=== PATIENT | female | born 1975 | race Caucasian/White ===

== ENCOUNTER 2016-05-15 12:26 | Inpatient (IN) | payer BC ==
[~2016-05-15] VITALS: Ht 162.6 cm; Wt 67.9 kg
[~2016-05-15 12:26] MED LIST: CALC500C70 PO; CITA20TA4 PO; GLUC10007 PO; MULT-506 PO; SIMV10TA2 PO; SNG10 PO
[2016-05-15] MEDS ORDERED: VENL150C56 PO (13:06)
[2016-05-15] MEDS ORDERED: SODIUM CHLORIDE 0.9% 1000ML 1,000 ML IV STA ×3 (13:20→16:27)
[2016-05-15] MEDS ORDERED: ONDANSETRON INJ 2 MG/ML 2 ML VIAL IV STA (13:20)
[2016-05-15] MEDS ORDERED: MoRPHine SULFATE 4 MG/ML 1 ML CARP\\VIAL IV PRN ×2 (13:30→17:30)
[2016-05-15 13:34] LABS: BASO % 0.2 %; BASO ABS # 0.04 K/uL (0-0.2); COMPLETE YES; EOS % 0.1 %; HEMATOCRIT 44.2 % (37-47); IG% 0.5 %; LYMPH % 8.8 %; LYMPH ABS # 1.72 K/uL (1.2-3.4); MEAN CELL VOLUME 89.8 fL (80-100); MEAN CORPUSCULAR HEMOGLOBIN 30.3 pg (25-34); MEAN CORPUSCULAR HGB CONC 33.7 g/dl (32-36); MEAN PLATELET VOLUME 9.1 fL (7.4-10.4); MONO % 4.3 %; NEUT % 86.1 %; PLATELET COUNT 343 K/uL (130-400); RED BLOOD COUNT 4.92 M/uL (4.2-5.4)
--- NOTE | 2016-05-15 13:36 | EMERGENCY ROOM VISIT NOTE ---
History Report prepared by Radha: Tonya Villalobos Under the Supervision of: Dr. Valente Arnold D.O. First contact with patient: 13:18 Chief Complaint: ABDOMINAL PAIN Stated Complaint: EXTREME STOMACH PAIN Nursing Triage Summary: pt c/o generalized abdominal pain starting 2 hours ago. pt c/o nausea and vomiting x1. pt states she has a lysis of adhesions in her abdomen from a back surgery. History of Present Illness The patient is a 41 year old female who presents to the Emergency Room with complaints of persistent umbilical abdominal pain that began prior to arrival. She currently rates her discomfort as a 10/10 in severity. The patient states that intermittently for quite some time she has experienced abdominal discomfort. She states that she has had adhesions in the past. She states that on May 03 she had a similar episode with the abdominal pain, nausea and vomiting. The patient denies any fever, chills, or diarrhea. She states that her last bowel movement was yesterday. The patient states that she has been urinating more than usual. She states that she is currently on her menstrual cycle noting that it is normal. The patient denies any other active medical problems. She notes a surgical history of a cholecystectomy, appendectomy, tonsillectomy, wisdom teeth extraction, and a back surgery. Source of History: patient Onset: prior to arrival Position: abdomen (umbilical) Symptom Intensity: 10/10 Timing: other (persistent) Associated Symptoms: + nausea, + vomiting, No chills, No diarrhea, No fevers Review of Systems See HPI for pertinent positives & negatives. A total of 10 systems reviewed and were otherwise negative. Past Medical & Surgical Medical Problems: (1) Depression (2) Dyslipidemia (3) GERD (gastroesophageal reflux disease) (4) LORENA (obstructive sleep apnea) (5) SBO (small bowel obstruction) Surgical Problems: (1) H/O esophagogastroduodenoscopy (2) H/O wisdom tooth extraction (3) History of appendectomy (4) History of surgical removal of ganglion cyst (5) History of tonsillectomy (6) Hx of cholecystectomy (7) S/P lumbar fusion Family History Cancer Diabetes mellitus Hypertension Kidney disease Kidney stones Social History Smoking Status: Never Smoker Drug Use: none Marital Status: Housing Status: lives with family Occupation Status: employed Current/Historical Medications Scheduled Calcium/Vitamin D (Os-Severo 500 Plus D), 1 TAB PO DAILY Glucosamine Sulfate (Glucosamine), Unknown Dose PO DAILY Loratadine (Claritin), 1 TAB PO DAILY Montelukast Sod (Montelukast Sodium), 10 MG PO HS Multivitamin (Multivitamin), 1 TAB PO DAILY Omeprazole (Prilosec), 1 CAP PO DAILY Simvastatin (Zocor), 20 MG PO QPM Trazodone Hcl (Trazodone), 50 MG PO HS Venlafaxine Hcl (Effexor Extended Rel), 150 MG PO DAILY Allergies Coded Allergies: BEE STING (Verified Allergy, Severe, ANAPHYLAXIS, 05/15/16) Amoxicillin (Verified Adverse Reaction, Mild, nausea/vomitting, 05/15/16) Erythromycin (Verified Adverse Reaction, Mild, nausea/vomitting, 05/15/16) Physical Exam Vital Signs Date Time Temp Pulse Resp B/P Pulse Ox O2 Delivery O2 Flow Rate FiO2 05/15/16 16:56 91 16 106/69 94 Room Air 05/15/16 16:02 90 18 104/73 94 Room Air 05/15/16 14:41 111 16 114/78 96 Room Air 05/15/16 12:42 36.8 118 18 94/70 99 Room Air Physical Exam GENERAL: Patient is awake, alert, very anxious and uncomfortable appearing. Appears to be in significant pain. EYES: The conjunctivae are clear. The pupils are round and reactive. EARS, NOSE, MOUTH AND THROAT: The nose is without any evidence of any deformity. Mucous membranes are moist tongue is midline NECK: The neck is nontender and supple. RESPIRATORY: Normal respiratory effort is noted there is no evidence of wheezing rhonchi or rales CARDIOVASCULAR: Regular rate and rhythm noted there no murmurs rubs or gallops normal S1 normal S2 GASTROINTESTINAL: The abdomen is moderately distended and diffusely tender. Bowel sounds are absent. MUSCULOSKELETAL/EXTREMITIES: There is no evidence of gross deformity full range of motion is noted in the hips and shoulders SKIN: There is no obvious evidence of any rash. There are no petechiae, pallor or cyanosis noted. NEUROLOGIC: Patient is awake alert and oriented x3. Medical Decision & Procedures ER Provider Diagnostic Interpretation: Radiology results as stated below per my review and radiologist interpretation: PA CHEST WITH ABDOMINAL SERIES CLINICAL HISTORY: Generalized abdominal pain. FINDINGS: A PA chest radiograph is compared to study dated 08/08/2015. The cardiomediastinal silhouette is unremarkable. The lungs and pleural spaces are clear. No pneumothorax is seen. The bony thorax is grossly intact. Supine and erect abdominal radiographs are compared to study dated 08/08/2015 and correlated with abdominal CT dated 08/14/2015. There is a nonobstructed abdominal bowel gas pattern. Moderate colonic fecal retention is observed. Scattered air-fluid levels are noted on the upright view. No intraperitoneal free air is seen. Cholecystectomy clips are noted. There are no abnormal abdominal calcifications. Phleboliths are again seen in the pelvis. The lumbosacral spine and bony pelvis appear intact. Fusion hardware is present at the lumbosacral junction. IMPRESSION: 1. No active disease in the chest. 2. Nonobstructed abdominal bowel gas pattern noting moderate colonic fecal retention. 3. Scattered air-fluid levels are noted throughout the small bowel, which could be seen in the setting of a nonspecific enteritis. Clinical correlation will be required. Electronically signed by: Landry Wilkins M.D. 05/15/2016 2:28 PM Dictated Date/Time: 05/15/2016 2:25 PM ABDOMEN AND PELVIS CT WITH IV CONTRAST CT DOSE: 432.95 mGy.cm HISTORY: vomiting, hx of adhesions, high WBC TECHNIQUE: Multiaxial CT images of the abdomen and pelvis were performed following the use of intravenous contrast. COMPARISON STUDY: Abdomen and pelvis CT 08/14/2015. FINDINGS: The lung bases are clear. No pneumoperitoneum. No pneumatosis. Anterior lumbar fusion at L5-S1. Cholecystectomy. Bladder is not well-distended. The uterus and bilateral ovaries are unremarkable. Small amount of pelvic fluid. The liver, spleen, pancreas, and adrenal glands are unremarkable. Normal right kidney. A 1.6 cm cyst within the left kidney. This remains unchanged. Multiple dilated fluid-filled loops of small bowel throughout the abdomen. There is suggestion of a focal stricture within the distal small bowel in the right lower quadrant on image 355. Distal to this potential stricture, the distal ileal loops appear to be mildly thickened within the right lower quadrant best seen on images 339 through 355. The appendix is not identified IMPRESSION: 1. Partial small bowel obstruction with the transition point located within the right lower quadrant at the level of the distal ileum. There is a potential stricture at this location and mild thickening of the distal ileal loops. Therefore, this could be due to adhesions or inflammatory bowel disease. 2. Small amount of pelvic fluid. 3. Cholecystectomy. Electronically signed by: Cy Hernandez M.D. 05/15/2016 4:01 PM Dictated Date/Time: 05/15/2016 3:47 PM Laboratory Results Test 05/15/16 12:05 05/15/16 13:15 05/15/16 16:42 Immature Granulocyte % (Auto) 0.5 % White Blood Count 19.50 K/uL (4.8-10.8) Red Blood Count 4.92 M/uL (4.2-5.4) Hemoglobin 14.9 g/dL (12.0-16.0) Hematocrit 44.2 % (37-47) Mean Corpuscular Volume 89.8 fL (80-100) Mean Corpuscular Hemoglobin 30.3 pg (25-34) Mean Corpuscular Hemoglobin Concent 33.7 g/dl (32-36) Platelet Count 343 K/uL (130-400) Mean Platelet Volume 9.1 fL (7.4-10.4) Neutrophils (%) (Auto) 86.1 % Lymphocytes (%) (Auto) 8.8 % Monocytes (%) (Auto) 4.3 % Eosinophils (%) (Auto) 0.1 % Basophils (%) (Auto) 0.2 % Neutrophils # (Auto) 16.80 K/uL (1.4-6.5) Lymphocytes # (Auto) 1.72 K/uL (1.2-3.4) Monocytes # (Auto) 0.83 K/uL (0.11-0.59) Eosinophils # (Auto) 0.02 K/uL (0-0.5) Basophils # (Auto) 0.04 K/uL (0-0.2) Immature Granulocyte # (Auto) 0.09 K/uL (0.00-0.02) Total Bilirubin 0.5 mg/dl (0.2-1) Direct Bilirubin 0.2 mg/dl (0-0.2) Aspartate Amino Transf (AST/SGOT) 18 U/L (15-37) Alanine Aminotransferase (ALT/SGPT) 22 U/L (12-78) Alkaline Phosphatase 77 U/L (45-117) Total Protein 8.0 gm/dl (6.4-8.2) Lipase 210 U/L (73-393) Urine Color DK YELLOW Urine Appearance CLEAR (CLEAR) Urine pH 5.0 (4.5-7.5) Urine Specific [place] 1.028 (1.000-1.030) Urine Protein TRACE (NEG) Urine Glucose (UA) NEG (NEG) Urine Ketones TRACE (NEG) Urine Occult Blood 3+ (NEG) Urine Nitrite NEG (NEG) Urine Bilirubin NEG (NEG) Urine Urobilinogen NEG (NEG) Urine Leukocyte Esterase TRACE (NEG) Urine WBC (Auto) 1-5 /hpf (0-5) Urine RBC (Auto) >30 /hpf (0-4) Urine Hyaline Casts (Auto) 1-5 /lpf (0-5) Urine Epithelial Cells (Auto) >30 /lpf (0-5) Urine Bacteria (Auto) NEG (NEG) Bedside Lactic Acid Venous 0.70 mmol/L (0.90-1.70) Laboratory results per my review. Medications Administered Medications (Trade) Dose Ordered Sig/Toño Route Start Time Stop Time Status Last Admin Dose Admin Sodium Chloride 1,000 ml @ 999 mls/hr Q1H1M STAT IV 05/15/16 13:20 05/15/16 14:20 DC 05/15/16 13:38 999 MLS/HR Sodium Chloride (Nss 1000ml) 1,000 ml @ 250 mls/hr Q4H STAT IV 05/15/16 13:20 05/15/16 17:19 DC 05/15/16 14:01 250 MLS/HR Morphine Sulfate (MoRPHine SULFATE INJ) 4 mg Q15M PRN IV 05/15/16 13:30 05/15/16 18:23 DC 05/15/16 13:38 4 MG Ondansetron HCl 4 mg 4 mg NOW STAT IV 05/15/16 13:20 05/15/16 13:22 DC 05/15/16 13:38 4 MG Sodium Chloride (Nss 1000ml) 1,000 ml @ 999 mls/hr Q1H1M STAT IV 05/15/16 16:27 05/15/16 17:27 DC 05/15/16 17:21 999 MLS/HR ED Course 1318: The patient was evaluated in room A11B. A complete history and physical examination were performed. 1320: Ordered Zofran Inj 4 mg IV, Sodium Chloride 1000 ml @ 250 mls/hr IV, Sodium Chloride 1000 ml @ 999 mls/hr IV. 1330: Ordered Morphine sulfate 4 mg IV. 1443: I reevaluated the patient and she is resting comfortably. 1616: I reevaluated the patient and she is resting comfortably. I discussed the exam findings with her and I discussed the treatment plan. She verbalized complete understanding and agreement. She will be evaluated for further treatment. 1627: Ordered Sodium Chloride 1000 ml @ 999 mls/hr IV. 1623: I discussed the patients case with Lianna Multani. She is going to evaluate the patient for further treatment. 1634: I discussed the patient's case with Dr. Hernandez, General Surgery. He will evaluate the patient. Medical Decision Differential diagnosis: Etiologies such as appendicitis, diverticulitis, PUD, biliary pathology, UTI, pancreatitis, obstruction, mesenteric ischemia, aortic pathology, infections, inflammatory bowel disease, renal colic, as well as others were entertained. Nursing notes reviewed. The patient is a 41-year-old female who presented to the emergency department for an evaluation of diffuse abdominal pain. The patient had nausea and vomiting. She also had abdominal distention. Her history and physical exam appear to be consistent with bowel obstruction. She has a history of adhesions in the past and has had a bowel obstruction. X-rays did not show a definite obstruction. Her white blood cell count was elevated. CT the abdomen and pelvis did reveal signs of partial small bowel obstruction. Given the patient's laboratory studies and physical exam findings I discussed her case with the on- call general surgeon as well as the on-call [facility] hospitalist group. The patient was treated with IV fluids IV pain medication and IV antiemetics. On subsequent reevaluation she was feeling much better. Consults Time Called: 1616 Consulting Physician: Lianna Multani Returned Call: 1623 I discussed the patients case with Lianna Multani. She is going to evaluate the patient for further treatment. Additional Consults: Time Called: 1627 Consulted Physician: Dr. Hernandez, General Surgery Returned Call: 1634 Additional Comments: I discussed the patient's case with Dr. Hernandez, General Surgery. He will evaluate the patient. Impression Primary Impression: Partial small bowel obstruction Additional Impressions: Vomiting Right lower quadrant abdominal pain Scribe Attestation The scribe's documentation has been prepared under my direction and personally reviewed by me in its entirety. I confirm that the note above accurately reflects all work, treatment, procedures, and medical decision making performed by me. Departure Information Dispostion Being Evaluated By Hospitalist Referrals No Doctor, Assigned (PCP) Problem Qualifiers
[2016-05-15 13:44] LABS: MANUAL MICROSCOPIC REQUIRED? NO; REVIEW REQ? NO; URINE APPEARANCE CLEAR (CLEAR); URINE BILIRUBIN NEG (NEG); URINE COLOR DK YELLOW; URINE EPITHELIAL CELL AUTO >30 /lpf (0-5); URINE NITRITE NEG (NEG); URINE SPECIFIC GRAVITY 1.028 (1.000-1.030); UROBILINOGEN NEG (NEG)
[2016-05-15 14:00] LABS: BUN/CREATININE RATIO 15.2 (10-20); CALCIUM 9.8 mg/dl (8.5-10.1); CREATININE 0.97 mg/dl (0.60-1.20); POTASSIUM 3.8 mmol/L (3.5-5.1)
--- NOTE | 2016-05-15 14:28 | DIAGNOSTIC IMAGING REPORT ---
PA CHEST WITH ABDOMINAL SERIES CLINICAL HISTORY: Generalized abdominal pain. FINDINGS: A PA chest radiograph is compared to study dated 08/08/2015. The cardiomediastinal silhouette is unremarkable. The lungs and pleural spaces are clear. No pneumothorax is seen. The bony thorax is grossly intact. Supine and erect abdominal radiographs are compared to study dated 08/08/2015 and correlated with abdominal CT dated 08/14/2015. There is a nonobstructed abdominal bowel gas pattern. Moderate colonic fecal retention is observed. Scattered air-fluid levels are noted on the upright view. No intraperitoneal free air is seen. Cholecystectomy clips are noted. There are no abnormal abdominal calcifications. Phleboliths are again seen in the pelvis. The lumbosacral spine and bony pelvis appear intact. Fusion hardware is present at the lumbosacral junction. IMPRESSION: 1. No active disease in the chest. 2. Nonobstructed abdominal bowel gas pattern noting moderate colonic fecal retention. 3. Scattered air-fluid levels are noted throughout the small bowel, which could be seen in the setting of a nonspecific enteritis. Clinical correlation will be required. Electronically signed by: Landry Wilkins M.D. 05/15/2016 2:28 PM Dictated Date/Time: 05/15/2016 2:25 PM
[2016-05-15] MEDS ORDERED: OPTIRAY 320 IV PRN ×2 (14:45)
--- NOTE | 2016-05-15 16:02 | DIAGNOSTIC IMAGING REPORT ---
ABDOMEN AND PELVIS CT WITH IV CONTRAST CT DOSE: 432.95 mGy.cm HISTORY: vomiting, hx of adhesions, high WBC TECHNIQUE: Multiaxial CT images of the abdomen and pelvis were performed following the use of intravenous contrast. COMPARISON STUDY: Abdomen and pelvis CT 08/14/2015. FINDINGS: The lung bases are clear. No pneumoperitoneum. No pneumatosis. Anterior lumbar fusion at L5-S1. Cholecystectomy. Bladder is not well-distended. The uterus and bilateral ovaries are unremarkable. Small amount of pelvic fluid. The liver, spleen, pancreas, and adrenal glands are unremarkable. Normal right kidney. A 1.6 cm cyst within the left kidney. This remains unchanged. Multiple dilated fluid-filled loops of small bowel throughout the abdomen. There is suggestion of a focal stricture within the distal small bowel in the right lower quadrant on image 355. Distal to this potential stricture, the distal ileal loops appear to be mildly thickened within the right lower quadrant best seen on images 339 through 355. The appendix is not identified IMPRESSION: 1. Partial small bowel obstruction with the transition point located within the right lower quadrant at the level of the distal ileum. There is a potential stricture at this location and mild thickening of the distal ileal loops. Therefore, this could be due to adhesions or inflammatory bowel disease. 2. Small amount of pelvic fluid. 3. Cholecystectomy. Electronically signed by: Cy Hernandez M.D. 05/15/2016 4:01 PM Dictated Date/Time: 05/15/2016 3:47 PM
[2016-05-15] MEDS ORDERED: ACETAMINOPHEN 325 MG TAB PO PRN (17:00)
[2016-05-15] MEDS ORDERED: SIMV20TA2 PO (17:00)
[2016-05-15] MEDS ORDERED: LORA10TA5 PO (17:00)
[2016-05-15] MEDS ORDERED: OMEP20CA59 PO (17:00)
[2016-05-15] MEDS ORDERED: ONDANSETRON INJ 2 MG/ML 2 ML VIAL IV PRN (17:00)
[2016-05-15] MEDS ORDERED: TRAZ50TA35 PO (17:00)
--- NOTE | 2016-05-15 17:34 | History and Physical ---
History & Physical Date & Time of Service: May 15, 2016 at 17:12 Chief Complaint: Abdominal Pain Primary Care Physician: Nelly Davis PA-C History of Present Illness 41 year old female who presents to the ER with abdominal pain, nausea, and vomiting. Patient has history of her appendix being adhered to her pelvis causing SBO which she underwent appendectomy and lysis of adhesions in 2014. 11 days post op patient developed a SBO that was treated conservatively. Patient reports that since her surgery she has episodes of lower abdominal pain and irregular bowel movements. Patient reports 10 days ago she had RLQ abdominal pain with vomiting. She reports is lasted about 24 hours and resolved on its own. She reports she had been feeling well until this morning when she had sudden onset of mid lower/RLQ abdominal pain with multiple episodes of vomiting. She denies hematemesis or coffee ground emesis. She reports her last normal bowel movement was yesterday. She denies abdominal distention. No fever or chills. She denies chest pain and shortness of breath. She reports mild lightheadedness and dizziness when the pain was severe but denies any syncopal events. She reports urinary frequency over the past few weeks. In the ER, patient underwent CT abd/pelvis that is showing partial SBO. WBC 19K. Initial vitals showed borderline BP and tachycardia which improved with IVF. Patient was also given IV Zofran and Morphine. Past Medical/Surgical History Medical Problems: (1) Depression Status: Chronic (2) Dyslipidemia Status: Chronic (3) GERD (gastroesophageal reflux disease) Status: Chronic (4) LORENA (obstructive sleep apnea) Status: Chronic (5) SBO (small bowel obstruction) Permanent Comment: 11 days post op from appendectomy Status: Chronic Surgical Problems: (1) H/O esophagogastroduodenoscopy Status: Resolved (2) H/O wisdom tooth extraction Status: Chronic (3) History of appendectomy Permanent Comment: appendix was adhered to pelvis causing SBO - patient has appendectomy and lysis of adhesions Status: Chronic (4) History of surgical removal of ganglion cyst Status: Chronic (5) History of tonsillectomy Status: Chronic (6) Hx of cholecystectomy Status: Chronic (7) S/P lumbar fusion Status: Chronic Family History FH: breast cancer SISTER Social History Smoking Status: Former Smoker Alcohol Use: none Immunizations History of Influenza Vaccine: Yes Influenza Vaccine Date: Apr 11, 2016 History of Tetanus Vaccine?: Yes Tetanus Immunization Date: Dec 11, 2012 History of Pneumococcal: Yes Pneumococcal Date: Dec 22, 2008 History of Hepatitis B Vaccine: Yes Hepatitis Immunization Date: Jan 03, 2004 Allergies Coded Allergies: BEE STING (Verified Allergy, Severe, ANAPHYLAXIS, 05/15/16) Amoxicillin (Verified Adverse Reaction, Mild, nausea/vomitting, 05/15/16) Erythromycin (Verified Adverse Reaction, Mild, nausea/vomitting, 05/15/16) Home Medications Scheduled Calcium/Vitamin D (Os-Severo 500 Plus D), 1 TAB PO DAILY Glucosamine Sulfate (Glucosamine), Unknown Dose PO DAILY Loratadine (Claritin), 1 TAB PO DAILY Montelukast Sod (Montelukast Sodium), 10 MG PO HS Multivitamin (Multivitamin), 1 TAB PO DAILY Omeprazole (Prilosec), 1 CAP PO DAILY Simvastatin (Zocor), 20 MG PO QPM Trazodone Hcl (Trazodone), 50 MG PO HS Venlafaxine Hcl (Effexor Extended Rel), 150 MG PO DAILY Review of Systems 10 point review of systems was completed with the pertinent positives and negatives noted per the HPI Physical Exam Vital Signs Date Time Temp Pulse Resp B/P Pulse Ox O2 Delivery O2 Flow Rate FiO2 05/15/16 16:56 91 16 106/69 94 Room Air 05/15/16 16:02 90 18 104/73 94 Room Air 05/15/16 14:41 111 16 114/78 96 Room Air 05/15/16 12:42 36.8 118 18 94/70 99 Room Air General Appearance: no apparent distress Head: normocephalic Eyes: normal inspection ENT: hearing grossly normal Neck: supple, no JVD Respiratory/Chest: lungs clear, normal breath sounds, no respiratory distress Cardiovascular: regular rate, rhythm, no edema Abdomen/GI: soft, + tenderness (RLQ, mid lower abdomen), + abnormal bowel sounds (hypoactive) Extremities/Musculoskelatal: normal inspection, no calf tenderness Neurologic/Psych: no motor/sensory deficits, alert, normal mood/affect, oriented x 3 Skin: normal color, warm/dry Diagnostics Laboratory Results Results Past 24 Hours Test 05/15/16 12:05 05/15/16 13:15 05/15/16 16:42 Range/Units White Blood Count 19.50 4.8-10.8 K/uL Red Blood Count 4.92 4.2-5.4 M/uL Hemoglobin 14.9 12.0-16.0 g/dL Hematocrit 44.2 37-47 % Mean Corpuscular Volume 89.8 80-100 fL Mean Corpuscular Hemoglobin 30.3 25-34 pg Mean Corpuscular Hemoglobin Concent 33.7 32-36 g/dl Platelet Count 343 130-400 K/uL Mean Platelet Volume 9.1 7.4-10.4 fL Neutrophils (%) (Auto) 86.1 % Lymphocytes (%) (Auto) 8.8 % Monocytes (%) (Auto) 4.3 % Eosinophils (%) (Auto) 0.1 % Basophils (%) (Auto) 0.2 % Neutrophils # (Auto) 16.80 1.4-6.5 K/uL Lymphocytes # (Auto) 1.72 1.2-3.4 K/uL Monocytes # (Auto) 0.83 0.11-0.59 K/uL Eosinophils # (Auto) 0.02 0-0.5 K/uL Basophils # (Auto) 0.04 0-0.2 K/uL RDW Standard Deviation 41.7 36.4-46.3 fL RDW Coefficient of Variation 12.7 11.5-14.5 % Immature Granulocyte % (Auto) 0.5 % Immature Granulocyte # (Auto) 0.09 0.00-0.02 K/uL Sodium Level 139 136-145 mmol/L Potassium Level 3.8 3.5-5.1 mmol/L Chloride Level 103 98-107 mmol/L Carbon Dioxide Level 26 21-32 mmol/L Anion Gap 10.0 3-11 mmol/L Blood Urea Nitrogen 15 7-18 mg/dl Creatinine 0.97 0.60-1.20 mg/dl Est Creatinine Clear Calc Drug Dose 70.8 ml/min Estimated GFR () 82.9 Estimated GFR (Non- 71.5 BUN/Creatinine Ratio 15.2 10-20 Random Glucose 122 70-99 mg/dl Calcium Level 9.8 8.5-10.1 mg/dl Total Bilirubin 0.5 0.2-1 mg/dl Direct Bilirubin 0.2 0-0.2 mg/dl Aspartate Amino Transf (AST/SGOT) 18 15-37 U/L Alanine Aminotransferase (ALT/SGPT) 22 12-78 U/L Alkaline Phosphatase 77 45-117 U/L Total Protein 8.0 6.4-8.2 gm/dl Albumin 4.3 3.4-5.0 gm/dl Lipase 210 73-393 U/L Urine Color DK YELLOW Urine Appearance CLEAR CLEAR Urine pH 5.0 4.5-7.5 Urine Specific [place] 1.028 1.000-1.030 Urine Protein TRACE NEG Urine Glucose (UA) NEG NEG Urine Ketones TRACE NEG Urine Occult Blood 3+ NEG Urine Nitrite NEG NEG Urine Bilirubin NEG NEG Urine Urobilinogen NEG NEG Urine Leukocyte Esterase TRACE NEG Urine WBC (Auto) 1-5 0-5 /hpf Urine RBC (Auto) >30 0-4 /hpf Urine Hyaline Casts (Auto) 1-5 0-5 /lpf Urine Epithelial Cells (Auto) >30 0-5 /lpf Urine Bacteria (Auto) NEG NEG Bedside Lactic Acid Venous 0.70 0.90-1.70 mmol/L Diagnostic Radiology CHEST/ABD XR IMPRESSION: 1. No active disease in the chest. 2. Nonobstructed abdominal bowel gas pattern noting moderate colonic fecal retention. 3. Scattered air-fluid levels are noted throughout the small bowel, which could be seen in the setting of a nonspecific enteritis. Clinical correlation will be required. CT ABD/PELVIS IMPRESSION: 1. Partial small bowel obstruction with the transition point located within the right lower quadrant at the level of the distal ileum. There is a potential stricture at this location and mild thickening of the distal ileal loops. Therefore, this could be due to adhesions or inflammatory bowel disease. 2. Small amount of pelvic fluid. 3. Cholecystectomy. Impression Assessment and Plan PARTIAL SBO - admit to med/surg - likely due to adhesions from prior abdominal surgeries - abdomen currently soft, patient comfortable - no role for NG at this time - NPO, IVF, pain and nausea control - check lactic acid - follow up abdominal XR in AM - general surgery consult - notified by ED LEUKOCYTOSIS - possibly stress response from vomiting/pain - no infectious source noted on CT abd/pelvis - had borderline BP and tachycardia on arrival - likely due to hypovolemia from vomiting - improved with IVF - abnormal U/A however appears to be contaminated (microscopic hematuria also noted - may need outpatient follow up); patient reports urinary frequency so will start Rocephin DYSLIPIDEMIA - hold statin for now DEPRESSION - hold Effexor for now DVT PROPHYLAXIS - SCDs DISPO - In my clinical judgment this beneficiary meets acute admission criteria, established by [facility], that includes being hospitalized through two midnights. Agree with above h and p. 41f with hx of appendectomy in 2015 presents with abdominal pain, nausea and found to have partial sbo. Moved bowels yesterday. Not passing gas today.No fevers. no sob. Afebrile. Currently symptoms better. p/e Ge not in distress Cvs s1 and s2 heard no murmurs Rs cta b/l no wheezing Abd soft bs very sluggish non tender no distension [employer] non focal Ext no erythema PSBO npo, iv fluids, pain control f/u kub surgery consult. UTI? started on Rocephin f/u cx VTE Prophylaxis VTE Risk Assessment Done? Y/N: Yes Risk Level: Low
[2016-05-15 18:00] VITALS: BP 95/63; PULSE 81; TEMP 37.1; O2SAT 96
[2016-05-15] MEDS: SODIUM CHLORIDE 0.9% 1000ML 1,000 ML IV SCH (18:29)
[2016-05-15 18:30] VITALS: BP 106/69; PULSE 91; TEMP 36.8; O2SAT 95
[2016-05-15 18:34] VITALS: BP 107/67; PULSE 91; TEMP 36.8; Ht 162.6 cm; Wt 67.9 kg
[2016-05-15] MEDS: CEFTRIAXONE SOD INJ 1 GM in DEXTROSE 5% ADD-VANTAGE 50ML 50 ML IV SCH (19:43)
[2016-05-15] MEDS: PANTOprazole INJ 40 MG in SYRINGE 0 ML IV SCH (21:03)
[2016-05-16 00:10] VITALS: BP 104/68; PULSE 87; TEMP 36.9; O2SAT 97
[2016-05-16] MEDS: SODIUM CHLORIDE 0.9% 1000ML 1,000 ML IV SCH ×3 (01:26→16:56)
--- NOTE | 2016-05-16 06:12 | SURGICAL CONSULTATION ---
DATE OF CONSULTATION: 05/15/2016 HISTORY OF PRESENT ILLNESS: I have been asked by Silvia Patiño PA-C to see this 41-year-old female who presented to the Emergency Room with a complaint of nausea, vomiting and abdominal pain, mostly in the lower abdomen. The patient had her appendix removed in 2014. Ever since then, she has had intermittent episodes of abdominal discomfort that she describes as a crampy sensation. It will be dictated as a dull ache, but then will escalate. When she passes her bowels or has an episode of vomiting, the discomfort resolves after few hours. The frequency varies. She had an episode of this about 2 weeks ago. It resolved spontaneously, but then she began to develop discomfort today that was similar to what she had in the past except this one did not resolve. She has not had fever or chills. She has not had any hematemesis. Her bowel habits are very irregular. She has loose stool about 1 in 5 of her bowel movements. She does not go every day. She has no rohan diarrhea. There is no melena or hematochezia. She denies dysuria and hematuria. In review of her CT scan and pathology from the appendectomy, there was an inflammatory process in the right lower quadrant that by CT appeared to possibly be perforated appendicitis; however, the pathology revealed an obliterated appendix with serositis. CT scan today showed multiple dilated fluid filled loops of small bowel throughout the abdomen with suggestion of focal stricture in the distal small bowel in the right lower quadrant and the distal ileal loops appear to be mildly thickened within the right lower quadrant. PAST MEDICAL HISTORY: For hypercholesterolemia, depression, gastroesophageal reflux disease, sleep apnea. PAST SURGICAL HISTORY: For breast cancer removal, T\T\A, appendectomy, cholecystectomy, removal of 2 ganglion cysts from her wrist and a lumbar spinal fusion via an anterior approach. MEDICATIONS AT HOME: Include Claritin, Prilosec, Zocor, trazodone, Effexor, glucosamine, Os-Severo. ALLERGIES: AMOXICILLIN AND CLARITHROMYCIN, BUT THOSE WERE MORE OF AN UPSET STOMACH THAN AN ALLERGIC REACTION. SOCIAL HISTORY: She does not smoke or chew tobacco and does not drink alcohol. PHYSICAL EXAMINATION: GENERAL: Reveals a well-developed, well-nourished female who is resting comfortably and answering questions appropriately, appears in no acute distress. VITAL SIGNS: Blood pressure 107/67, heart rate 91, respirations 16, temperature is 36.8, and pulse oximetry is 95% on room air. HEENT: Reveals the sclerae to be anicteric. Mucous membranes are moist. NECK: Supple, with no JVD. No cervical or supraclavicular adenopathy. BACK: Has no spinal or CVA tenderness. LUNGS: Clear. HEART: Regular. ABDOMEN: Has normoactive bowel sounds, is soft, nondistended with minimal tenderness below the umbilicus. EXTREMITIES: Revealed no edema. LABORATORY DATA: WBC is 19.5, H\T\H is 14.9 and 44.2, platelet count 343,000. Sodium 139, potassium 3.8, chloride 103, CO2 26, BUN 15, creatinine 0.97. Lactic acid 0.77, glucose 122, total bilirubin 0.5, AST 18, ALT 22, alkaline phosphatase 77, lipase 210. IMAGING DATA: Radiology as per HPI. ASSESSMENT AND PLAN: This patient has lower abdominal pain that has been intermittent with irregular bowel habit history as well. She had a right lower quadrant inflammatory process in 1994. There was no evidence pathologically of acute appendicitis. She has thickening of the small bowel with a stricture. I would want to consider the possibility of inflammatory bowel disease. I really think that a colonoscopy would be appropriate with hopefully cannulation of the terminal ileum. I do not feel that there is any need for immediate surgical intervention. Thank you for allowing me to see this patient and participate in her care. VALERIA
[2016-05-16 06:50] LABS: MEAN CELL VOLUME 90.2 fL (80-100); MEAN CORPUSCULAR HEMOGLOBIN 29.4 pg (25-34); MEAN CORPUSCULAR HGB CONC 32.6 g/dl (32-36); MEAN PLATELET VOLUME 9.1 fL (7.4-10.4); PLATELET COUNT 237 K/uL (130-400); RED BLOOD COUNT 3.77 M/uL (4.2-5.4); WHITE BLOOD COUNT 6.57 K/uL (4.8-10.8)
[2016-05-16 07:01] LABS: BUN/CREATININE RATIO 17.4 (10-20); CALCIUM 7.7 mg/dl (8.5-10.1); CREATININE 0.67 mg/dl (0.60-1.20); POTASSIUM 3.8 mmol/L (3.5-5.1)
[2016-05-16 07:35] VITALS: BP 103/70; PULSE 99; TEMP 36.9; O2SAT 98
--- NOTE | 2016-05-16 08:29 | Surgery Progress Note ---
Surgery Progress Note Date of Service May 16, 2016. Subjective No bowel movement, No flatus, No nausea, No vomiting Feels much better Denies pain Objective Vital Signs: Date Time Temp Pulse Resp B/P Pulse Ox O2 Delivery O2 Flow Rate FiO2 05/16/16 07:35 36.9 99 15 103/70 98 Room Air 05/16/16 07:20 Room Air 05/16/16 00:40 Room Air 05/16/16 00:10 36.9 87 14 104/68 97 Room Air 05/15/16 18:34 36.8 91 16 107/67 Room Air 05/15/16 18:30 36.8 91 16 106/69 95 Room Air 05/15/16 18:30 Room Air 05/15/16 18:00 37.1 81 16 95/63 96 Room Air 05/15/16 17:52 86 16 107/67 95 Room Air 05/15/16 16:56 91 16 106/69 94 Room Air 05/15/16 16:02 90 18 104/73 94 Room Air 05/15/16 14:41 111 16 114/78 96 Room Air 05/15/16 12:42 36.8 118 18 94/70 99 Room Air Abdomen: non distended, soft, + tenderness (Much improved today) Laboratory Results: Results Past 24 Hours Test 05/15/16 12:05 05/15/16 13:15 05/15/16 16:42 05/16/16 05:33 Range/Units White Blood Count 19.50 6.57 4.8-10.8 K/uL Red Blood Count 4.92 3.77 4.2-5.4 M/uL Hemoglobin 14.9 11.1 12.0-16.0 g/dL Hematocrit 44.2 34.0 37-47 % Mean Corpuscular Volume 89.8 90.2 80-100 fL Mean Corpuscular Hemoglobin 30.3 29.4 25-34 pg Mean Corpuscular Hemoglobin Concent 33.7 32.6 32-36 g/dl Platelet Count 343 237 130-400 K/uL Mean Platelet Volume 9.1 9.1 7.4-10.4 fL Neutrophils (%) (Auto) 86.1 % Lymphocytes (%) (Auto) 8.8 % Monocytes (%) (Auto) 4.3 % Eosinophils (%) (Auto) 0.1 % Basophils (%) (Auto) 0.2 % Neutrophils # (Auto) 16.80 1.4-6.5 K/uL Lymphocytes # (Auto) 1.72 1.2-3.4 K/uL Monocytes # (Auto) 0.83 0.11-0.59 K/uL Eosinophils # (Auto) 0.02 0-0.5 K/uL Basophils # (Auto) 0.04 0-0.2 K/uL RDW Standard Deviation 41.7 41.9 36.4-46.3 fL RDW Coefficient of Variation 12.7 12.8 11.5-14.5 % Immature Granulocyte % (Auto) 0.5 % Immature Granulocyte # (Auto) 0.09 0.00-0.02 K/uL Sodium Level 139 144 136-145 mmol/L Potassium Level 3.8 3.8 3.5-5.1 mmol/L Chloride Level 103 111 98-107 mmol/L Carbon Dioxide Level 26 25 21-32 mmol/L Anion Gap 10.0 8.0 3-11 mmol/L Blood Urea Nitrogen 15 12 7-18 mg/dl Creatinine 0.97 0.67 0.60-1.20 mg/dl Est Creatinine Clear Calc Drug Dose 70.8 102.6 ml/min Estimated GFR () 82.9 124.8 Estimated GFR (Non- 71.5 107.7 BUN/Creatinine Ratio 15.2 17.4 10-20 Random Glucose 122 85 70-99 mg/dl Calcium Level 9.8 7.7 8.5-10.1 mg/dl Total Bilirubin 0.5 0.2-1 mg/dl Direct Bilirubin 0.2 0-0.2 mg/dl Aspartate Amino Transf (AST/SGOT) 18 15-37 U/L Alanine Aminotransferase (ALT/SGPT) 22 12-78 U/L Alkaline Phosphatase 77 45-117 U/L Total Protein 8.0 6.4-8.2 gm/dl Albumin 4.3 3.4-5.0 gm/dl Lipase 210 73-393 U/L Urine Color DK YELLOW Urine Appearance CLEAR CLEAR Urine pH 5.0 4.5-7.5 Urine Specific [place] 1.028 1.000-1.030 Urine Protein TRACE NEG Urine Glucose (UA) NEG NEG Urine Ketones TRACE NEG Urine Occult Blood 3+ NEG Urine Nitrite NEG NEG Urine Bilirubin NEG NEG Urine Urobilinogen NEG NEG Urine Leukocyte Esterase TRACE NEG Urine WBC (Auto) 1-5 0-5 /hpf Urine RBC (Auto) >30 0-4 /hpf Urine Hyaline Casts (Auto) 1-5 0-5 /lpf Urine Epithelial Cells (Auto) >30 0-5 /lpf Urine Bacteria (Auto) NEG NEG Bedside Lactic Acid Venous 0.70 0.90-1.70 mmol/L Microbiology Results 05/15/16 Urine Culture, Received Pending Assessment & Plan Improved symptomatically WBC normal Consider GI evaluation for terminal ileitis
[2016-05-16] MEDS: PANTOprazole INJ 40 MG in SYRINGE 0 ML IV SCH (11:06)
--- NOTE | 2016-05-16 14:50 | DIAGNOSTIC IMAGING REPORT ---
ABDOMEN 2 VIEWS CLINICAL HISTORY: Follow up partial small bowel obstruction. COMPARISON STUDY: Abdominal series and CT of the abdomen and pelvis May 15, 2016. FINDINGS: There are cholecystectomy clips. Post surgical findings within the spine are noted. There is no free air. Small bowel dilatation has resolved. IMPRESSION: 1. Resolution of small bowel dilatation. The findings suggest a resolving small bowel obstruction. 2. No free air. Electronically signed by: Dg Kimbrough M.D. 05/16/2016 2:49 PM Dictated Date/Time: 05/16/2016 2:47 PM
[2016-05-16 15:37] VITALS: BP 104/65; PULSE 77; TEMP 36.8; O2SAT 97
[2016-05-16] MEDS: CEFTRIAXONE SOD INJ 1 GM in DEXTROSE 5% ADD-VANTAGE 50ML 50 ML IV SCH (18:41)
--- NOTE | 2016-05-16 19:18 | Progress Note ---
Medicine Progress Note Date & Time of Visit: May 16, 2016 at 19:14. Subjective patient seen resting in bed, comfortable states RLQ has resolved (+) BM this morning, non bloody, formed no nausea no urinary symptoms denies other symptoms Objective Last 8 Hrs Date Time Temp Pulse Resp B/P Pulse Ox O2 Delivery O2 Flow Rate FiO2 05/16/16 16:00 Room Air 05/16/16 15:37 36.8 77 16 104/65 97 Room Air Physical Exam: General- oriented x 3, not in distress, speaks in sentences with no effort Eyes- anicteric ENT- oropharynx clear Neck- supple, no JVD, no adenopathy Lungs- clear to auscultation bilaterally Heart- normal rate, regular rhythm; no murmurs Abdomen- normal bowel sounds, soft, nontender Extremities- no pretibial edema, no calf tenderness; peripheral pulses intact Neuro- alert, oriented x 3;no gross focal deficits Skin- warm & dry Laboratory Results: Last 24 Hours Test 05/16/16 05:33 White Blood Count 6.57 K/uL Red Blood Count 3.77 M/uL Hemoglobin 11.1 g/dL Hematocrit 34.0 % Mean Corpuscular Volume 90.2 fL Mean Corpuscular Hemoglobin 29.4 pg Mean Corpuscular Hemoglobin Concent 32.6 g/dl RDW Standard Deviation 41.9 fL RDW Coefficient of Variation 12.8 % Platelet Count 237 K/uL Mean Platelet Volume 9.1 fL Sodium Level 144 mmol/L Potassium Level 3.8 mmol/L Chloride Level 111 mmol/L Carbon Dioxide Level 25 mmol/L Anion Gap 8.0 mmol/L Blood Urea Nitrogen 12 mg/dl Creatinine 0.67 mg/dl Est Creatinine Clear Calc Drug Dose 102.6 ml/min Estimated GFR () 124.8 Estimated GFR (Non- 107.7 BUN/Creatinine Ratio 17.4 Random Glucose 85 mg/dl Calcium Level 7.7 mg/dl Albumin 2.8 gm/dl Assessment & Plan PARTIAL SMALL BOWEL OBSTRUCTION, Resolving - CT abdomen: 1. Partial small bowel obstruction with the transition point located within the right lower quadrant at the level of the distal ileum. There is a potential stricture at this location and mild thickening of the distal ileal loops. Therefore, this could be due to adhesions or inflammatory bowel disease. 2. Small amount of pelvic fluid. 3. Cholecystectomy. - repeat abdominal xray: resolved SBO - (+) BM, flatus will start Clear liquids NPO post midnight for possible scoping - will consult GI for possible IBD, Ileitis - appreciate 's recommendations R/O UTI WBC improved ff up urine culture on empiric Ceftriaxone IV DYSLIPIDEMIA - hold statin for now DEPRESSION - hold Effexor for now DVT PROPHYLAXIS - SCDs DISPO pending anticipate d/c home when medically stable Current Inpatient Medications: Current Inpatient Medications Medications (Trade) Dose Ordered Sig/Toño Route Start Time Stop Time Status Last Admin Dose Admin Ioversol (Optiray 320) 100 ml UD PRN IV 05/15/16 14:45 05/19/16 14:44 Ioversol (Optiray 320) 100 ml UD PRN IV 05/15/16 14:45 05/19/16 14:44 Acetaminophen (Tylenol Tab) 650 mg Q4H PRN PO 05/15/16 17:00 06/14/16 16:59 05/16/16 18:48 650 MG Ondansetron HCl 4 mg 4 mg Q6H PRN IV 05/15/16 17:00 06/14/16 16:59 Sodium Chloride 1,000 ml @ 125 mls/hr Q8H IV 05/15/16 17:00 06/14/16 16:59 05/16/16 16:56 125 MLS/HR Pantoprazole Sodium 40 mg/ Syringe 10 ml @ 5 mls/min DAILY@11 IV 05/15/16 17:15 06/14/16 17:14 05/16/16 11:06 5 MLS/MIN Ceftriaxone Sodium/Dextrose (Rocephin Inj/ Dextrose Add-[place] 50ML) 50 ml @ 100 mls/hr DAILY@1800 IV 05/15/16 18:23 05/20/16 17:59 05/16/16 18:41 100 MLS/HR Morphine Sulfate (MoRPHine SULFATE INJ) 4 mg Q4H PRN IV 05/15/16 17:30 05/29/16 17:29 05/16/16 15:52 4 MG
[2016-05-16 23:28] VITALS: BP 97/60; PULSE 74; TEMP 36.7; O2SAT 96
[2016-05-17] MEDS: SODIUM CHLORIDE 0.9% 1000ML 1,000 ML IV SCH (04:38)
--- NOTE | 2016-05-17 07:27 | Surgery Progress Note ---
Surgery Progress Note Date of Service May 17, 2016. Subjective + bowel movement, + feeling well, + flatus, No complaints, No nausea, No vomiting Objective Vital Signs: Date Time Temp Pulse Resp B/P Pulse Ox O2 Delivery O2 Flow Rate FiO2 05/16/16 23:28 36.7 74 14 97/60 96 Room Air 05/16/16 20:00 Room Air 05/16/16 16:00 Room Air 05/16/16 15:37 36.8 77 16 104/65 97 Room Air 05/16/16 07:35 36.9 99 15 103/70 98 Room Air Abdomen: non tender, non distended, soft Assessment & Plan Continues to improve symptomatically Consider GI evaluation for terminal ileitis No surgical intervention immediately at this time
[2016-05-17 08:10] VITALS: BP 100/68; PULSE 80; TEMP 36.8; O2SAT 95
[2016-05-17 08:47] VITALS: O2SAT 95
--- NOTE | 2016-05-17 10:02 | Gastrointestinal Consultation ---
Gastrointestinal Consultation Date of Consultation: May 17, 2016 History of Present Illness Patient is a 41 year old female with past medical history significant for SBO, depression, reflux who is s/p appendectomy and cholecystectomy. GI is consulted for ?IBD or bowel stricture. Ms. Newberry has a significant history of recurrent SBO. She reports in 2007 she had a back surgery that resulted in adhesion affecting bowel and appendix. In 2014 she was admitted for a SBO, after resolution she had an appendectomy and adhesion removal. She had another episode of SBO last year that resolved with bowel rest. She repots on May 03 she felt abdominal distention, fullness, nausea and vomiting. She reports this for one night and resolved. She did not seek medical attention at that time. On Friday, her symptoms returned and persisted. She reported severe abdominal pain, nausea and self-induced vomiting to relief abdominal discomfort. She was admitted with images suggestive of partial SBO. Surgery was involved and did not see a need for immediate intervention. Repeat imaging suggests resolution of SBO. Patient reports one bm yesterday, semi-formed without any evidence of bleeding. She has had gas and bowel activity sense. She denies any nausea/vomiting since admission. She reports she feels well. Colonoscopy: many years ago Malcolm b/c IBS - patient reports unremarkable exam KUB 05/16/16: Resolution of small bowel dilatation. The findings suggest a resolving small bowel obstruction. CT abd: Partial small bowel obstruction with the transition point located within the right lower quadrant at the level of the distal ileum. There is a potential stricture at this location and mild thickening of the distal ileal loops. Therefore, this could be due to adhesions or inflammatory bowel disease. Family History FH: breast cancer SISTER Social History Smoking Status: Former Smoker Housing Status: lives with family Allergies Coded Allergies: BEE STING (Verified Allergy, Severe, ANAPHYLAXIS, 05/15/16) Amoxicillin (Verified Adverse Reaction, Mild, nausea/vomitting, 05/15/16) Erythromycin (Verified Adverse Reaction, Mild, nausea/vomitting, 05/15/16) Current Medications Home Meds and Scripts Medications Dose Route/Sig Max Daily Dose Days Date Category Prilosec (Omeprazole) 20 Mg Capcr 1 Cap PO DAILY 90 05/15/16 Reported Claritin (Loratadine) 10 Mg Tab 1 Tab PO DAILY 30 05/15/16 Reported Zocor (Simvastatin) 20 Mg Tab 20 Mg PO QPM 05/15/16 Reported Trazodone (Trazodone HCl) 50 Mg Tab 50 Mg PO HS 05/15/16 Reported Effexor Extended Rel (Venlafaxine Hcl) 150 Mg Cap 150 Mg PO DAILY 05/15/16 Reported Glucosamine (Glucosamine Sulfate) 1,000 Mg Tab Unknown Dose PO DAILY 02/23/16 Reported Os-Severo 500 Plus D (Calcium/Vitamin D) Tab 1 Tab PO DAILY 02/23/16 Reported Multivitamin (Multivitamins) Tab 1 Tab PO DAILY 02/23/16 Reported Montelukast Sodium (Montelukast Sod) 10 Mg Tab 10 Mg PO HS 10/30/14 Reported Review of Systems Constitutional: No chills, No fever Respiratory: No cough, No shortness of breath Cardiac: No chest pain, No edema Abdomen: No GI bleeding, No constipation, No diarrhea, No nausea, No pain, No vomiting Skin: No rash Physical Exam Date Time Temp Pulse Resp B/P Pulse Ox O2 Delivery O2 Flow Rate FiO2 05/17/16 08:47 95 Room Air 05/17/16 08:10 36.8 80 20 100/68 95 Room Air 05/17/16 08:06 Room Air 05/16/16 23:28 36.7 74 14 97/60 96 Room Air 05/16/16 20:00 Room Air 05/16/16 16:00 Room Air 05/16/16 15:37 36.8 77 16 104/65 97 Room Air General Appearance: no apparent distress Eyes: PERRL, EOMI ENT: hearing grossly normal Neck: supple, trachea midline Respiratory/Chest: lungs clear, normal breath sounds, no respiratory distress, no accessory muscle use Cardiovascular: regular rate, rhythm, no edema, no gallop, no JVD, no murmur Abdomen: normal bowel sounds, non tender, soft, no organomegaly, no pulsatile mass Neurologic/Psych: alert, normal mood/affect, oriented x 3 Skin: normal color, no jaundice, warm/dry, no rash Impression Patient is a 41 year old female with recurrent SBO. Most recent imaging is suggestive of a stricture and mild thickening of the distal ileum loops. She is unsure of the exact time or location of her last colonoscopy but reports that it was very long ago and normal. She is currently having no GI symptoms requiring an urgent colonoscopy or extended admission. She is feeling well and would like to be discharged. Plan no GI contraindications to advancing diet no GI contraindications to discharge Will plan for an outpatient colonoscopy within the month GI to sign off ATTESTATION: I have performed a history and physical examination of this patient and reviewed the electronic record. Specifically, on physical examination there is no abdominal tenderness. Would consider MR enterography if colonoscopy is unremarkable. I have discussed the case with KOBY Velazquez. The above note reflects my findings, conclusions, and recommendations. Valente Travis MD
[2016-05-17] MEDS: PANTOprazole INJ 40 MG in SYRINGE 0 ML IV SCH (10:22)
[2016-05-17 15:34] VITALS: BP 109/66; PULSE 89; TEMP 37.1; O2SAT 100
[2016-05-17 16:00] VITALS: O2SAT 100
[2016-05-17 16:44] LABS: BASO % 0.3 %; BASO ABS # 0.02 K/uL (0-0.2); COMPLETE YES; EOS % 0.5 %; HEMATOCRIT 34.7 % (37-47); IG% 0.3 %; LYMPH % 30.9 %; LYMPH ABS # 2.34 K/uL (1.2-3.4); MEAN CELL VOLUME 89.2 fL (80-100); MEAN CORPUSCULAR HEMOGLOBIN 29.8 pg (25-34); MEAN CORPUSCULAR HGB CONC 33.4 g/dl (32-36); MEAN PLATELET VOLUME 8.6 fL (7.4-10.4); MONO % 5.7 %; NEUT % 62.3 %; PLATELET COUNT 248 K/uL (130-400); RED BLOOD COUNT 3.89 M/uL (4.2-5.4); WHITE BLOOD COUNT 7.58 K/uL (4.8-10.8)
--- NOTE | 2016-05-17 16:44 | Progress Note ---
Medicine Progress Note Date & Time of Visit: May 17, 2016 at 16:38. Subjective patient seen in good spirits, Tonio at the bedside states she feels better overall today denies abdominal pain, nausea tolerating diet well (+) flatus (+) BM yesterday denies other symptoms states she is ready and would like to go home today Objective Last 8 Hrs Date Time Temp Pulse Resp B/P Pulse Ox O2 Delivery O2 Flow Rate FiO2 05/17/16 16:00 100 Room Air 05/17/16 15:34 37.1 89 16 109/66 100 Room Air 05/17/16 08:47 95 Room Air Physical Exam: General- oriented x 3, not in distress, speaks in sentences with no effort Neck- no JVD Lungs- clear breath sounds bilaterally Heart- normal rate, regular rhythm; no murmurs Abdomen- normal bowel sounds, non distended, soft, nontender Extremities- no pretibial edema, no calf tenderness; peripheral pulses intact Neuro- alert, oriented x 3;no gross focal deficits Skin- warm & dry Laboratory Results: Last 24 Hours Test 05/17/16 16:25 Assessment & Plan PARTIAL SMALL BOWEL OBSTRUCTION, Resolved THICKENING OF DISTAL ILEAL LOOPS - CT abdomen: 1. Partial small bowel obstruction with the transition point located within the right lower quadrant at the level of the distal ileum. There is a potential stricture at this location and mild thickening of the distal ileal loops. Therefore, this could be due to adhesions or inflammatory bowel disease. 2. Small amount of pelvic fluid. 3. Cholecystectomy. - repeat abdominal xray: resolved SBO - (+) BM, flatus - Surgery consulted Dr. Hernandez: no surgical intervention recommended recommended GI consult for possible terminal ileitis - GI consulted Dr. Travis: outpatient colonoscopy recommended - tolerating diet, pain has resolved - ff up with GI as outpatient as scheduled UTI RULED OUT urine culture: negative asymptomatic given 2 days of empiric Ceftriaxone IV DYSLIPIDEMIA - on statin DEPRESSION - continue Effexor DVT PROPHYLAXIS - SCDs given DISPO d/c home today ff up with PCP next week GI as scheduled next month Current Inpatient Medications: Current Inpatient Medications Medications (Trade) Dose Ordered Sig/Toño Route Start Time Stop Time Status Last Admin Dose Admin Ioversol (Optiray 320) 100 ml UD PRN IV 05/15/16 14:45 05/19/16 14:44 Ioversol (Optiray 320) 100 ml UD PRN IV 05/15/16 14:45 05/19/16 14:44 Acetaminophen (Tylenol Tab) 650 mg Q4H PRN PO 05/15/16 17:00 06/14/16 16:59 05/16/16 18:48 650 MG Ondansetron HCl 4 mg 4 mg Q6H PRN IV 05/15/16 17:00 06/14/16 16:59 Sodium Chloride 1,000 ml @ 80 mls/hr [id number] IV 05/15/16 17:00 06/14/16 16:59 05/17/16 04:38 80 MLS/HR Pantoprazole Sodium 40 mg/ Syringe 10 ml @ 5 mls/min DAILY@11 IV 05/15/16 17:15 06/14/16 17:14 05/17/16 10:22 5 MLS/MIN Ceftriaxone Sodium/Dextrose (Rocephin Inj/ Dextrose Add-[place] 50ML) 50 ml @ 100 mls/hr DAILY@1800 IV 05/15/16 18:23 05/20/16 17:59 05/16/16 18:41 100 MLS/HR Morphine Sulfate (MoRPHine SULFATE INJ) 4 mg Q4H PRN IV 05/15/16 17:30 05/29/16 17:29 05/16/16 15:52 4 MG
--- NOTE | 2016-05-17 16:53 | Discharge Instructions ---
Discharge Instructions Admission Reason for Admission: Partial Small Bowel Obstruction Discharge Discharge Diagnosis / Problem: PARTIAL SMALL BOWEL OBSTRUCTION, RESOLVED Discharge Goals Goal(s): Diagnostic testing, Therapeutic intervention Activity Recommendations Activity Limitations: resume your previous activity . Instructions / Follow-Up Instructions / Follow-Up PLEASE ENSURE ADEQUATE DAILY FLUID INTAKE. SOFT DIET FOR 1-2 DAYS, THEN ADVANCE TOLERATED. CALL PRIMARY CARE PHYSICIAN OR RETURN TO ER IMMEDIATELY IF WITH RECURRENCE OF SYMPTOMS- ABDOMINAL PAIN, NAUSEA, CONSTIPATION, FEVER/CHILLS. PLEASE FOLLOW UP WITH MIREYA PRESCOTT ON Friday05/23/16 AT 12:50PM. FOLLOW UP WITH [employer] SEALER SCHEDULED. OUTPATIENT COLONOSCOPY WITHIN 2 WEEKS. Current Hospital Diet Patient's current hospital diet: Low Fiber Diet Discharge Diet Recommended Diet: Low Fiber Diet Pending Studies Studies pending at discharge: yes List of pending studies: COLONOSCOPY IN 2 WEEKS Medical Emergencies . Who to Call and When: Medical Emergencies: If at any time you feel your situation is an emergency, please call 911 immediately. . Non-Emergent Contact Non-Emergency issues call your: Primary Care Provider Call Non-Emergent contact if: you have a fever, your pain is not controlled . Past History Medical & Surgical History: (1) H/O wisdom tooth extraction (2) Hx of cholecystectomy (3) S/P lumbar fusion (4) History of tonsillectomy (5) History of surgical removal of ganglion cyst (6) History of appendectomy (7) GERD (gastroesophageal reflux disease) (8) Dyslipidemia (9) LORENA (obstructive sleep apnea) . "Provider Documentation" section prepared by Josue Thomas. VTE Core Measure Inpt VTE Proph given/why not?: SCD's
--- NOTE | 2016-05-17 16:56 | Discharge Summary ---
Discharge Summary Admission Date: May 15, 2016 at 16:57 Discharge Date: May 17, 2016 Discharge Disposition: Home Principal Diagnosis: PARTIAL SMALL BOWEL OBSTRUCTION, Resolved THICKENING OF DISTAL ILEAL LOOPS Secondary Diagnoses/Problems: PLEASE REFER TO HOSPITAL COURSE BELOW. Procedures: ABDOMEN AND PELVIS CT WITH IV CONTRAST CT DOSE: 432.95 mGy.cm HISTORY: vomiting, hx of adhesions, high WBC TECHNIQUE: Multiaxial CT images of the abdomen and pelvis were performed following the use of intravenous contrast. COMPARISON STUDY: Abdomen and pelvis CT 08/14/2015. FINDINGS: The lung bases are clear. No pneumoperitoneum. No pneumatosis. Anterior lumbar fusion at L5-S1. Cholecystectomy. Bladder is not well-distended. The uterus and bilateral ovaries are unremarkable. Small amount of pelvic fluid. The liver, spleen, pancreas, and adrenal glands are unremarkable. Normal right kidney. A 1.6 cm cyst within the left kidney. This remains unchanged. Multiple dilated fluid-filled loops of small bowel throughout the abdomen. There is suggestion of a focal stricture within the distal small bowel in the right lower quadrant on image 355. Distal to this potential stricture, the distal ileal loops appear to be mildly thickened within the right lower quadrant best seen on images 339 through 355. The appendix is not identified IMPRESSION: 1. Partial small bowel obstruction with the transition point located within the right lower quadrant at the level of the distal ileum. There is a potential stricture at this location and mild thickening of the distal ileal loops. Therefore, this could be due to adhesions or inflammatory bowel disease. 2. Small amount of pelvic fluid. 3. Cholecystectomy. Consultations: GROUND SYSTEMS ENGINEER DR. HILTON, SURGEON DR. CADENA Pending Studies/Follow-Up: COLONOSCOPY IN 2 WEEKS Medication Reconciliation Continued Medications: Calcium/Vitamin D (Os-Severo 500 Plus D) Tab 1 TAB PO DAILY, TAB Glucosamine Sulfate (Glucosamine) 1,000 Mg Tab Unknown Dose PO DAILY, TAB Loratadine (Claritin) 10 Mg Tab 1 TAB PO DAILY for 30 Days, #30 TAB 5 Refills Montelukast Sod (Montelukast Sodium) 10 Mg Tab 10 MG PO HS Multivitamin (Multivitamin) Tab 1 TAB PO DAILY, TAB Omeprazole (Prilosec) 20 Mg Capcr 1 CAP PO DAILY for 90 Days, #90 CAP 1 Refill Simvastatin (Zocor) 20 Mg Tab 20 MG PO QPM, TAB Trazodone Hcl (Trazodone) 50 Mg Tab 50 MG PO HS, TAB Venlafaxine Hcl (Effexor Extended Rel) 150 Mg Cap 150 MG PO DAILY, CAP Admission Information HPI (per Admitting provider): 41 year old female who presents to the ER with abdominal pain, nausea, and vomiting. Patient has history of her appendix being adhered to her pelvis causing SBO which she underwent appendectomy and lysis of adhesions in 2014. 11 days post op patient developed a SBO that was treated conservatively. Patient reports that since her surgery she has episodes of lower abdominal pain and irregular bowel movements. Patient reports 10 days ago she had RLQ abdominal pain with vomiting. She reports is lasted about 24 hours and resolved on its own. She reports she had been feeling well until this morning when she had sudden onset of mid lower/RLQ abdominal pain with multiple episodes of vomiting. She denies hematemesis or coffee ground emesis. She reports her last normal bowel movement was yesterday. She denies abdominal distention. No fever or chills. She denies chest pain and shortness of breath. She reports mild lightheadedness and dizziness when the pain was severe but denies any syncopal events. She reports urinary frequency over the past few weeks. In the ER, patient underwent CT abd/pelvis that is showing partial SBO. WBC 19K. Initial vitals showed borderline BP and tachycardia which improved with IVF. Patient was also given IV Zofran and Morphine. Physical Exam (per Admitting): General Appearance: no apparent distress Head: normocephalic Eyes: normal inspection ENT: hearing grossly normal Neck: supple, no JVD Respiratory/Chest: lungs clear, normal breath sounds, no respiratory distress Cardiovascular: regular rate, rhythm, no edema Abdomen/GI: soft, + tenderness (RLQ, mid lower abdomen), + abnormal bowel sounds (hypoactive) Extremities/Musculoskelatal: normal inspection, no calf tenderness Neurologic/Psych: no motor/sensory deficits, alert, normal mood/affect, oriented x 3 Skin: normal color, warm/dry Hospital Course PARTIAL SMALL BOWEL OBSTRUCTION, Resolved THICKENING OF DISTAL ILEAL LOOPS - CT abdomen: 1. Partial small bowel obstruction with the transition point located within the right lower quadrant at the level of the distal ileum. There is a potential stricture at this location and mild thickening of the distal ileal loops. Therefore, this could be due to adhesions or inflammatory bowel disease. 2. Small amount of pelvic fluid. 3. Cholecystectomy. - repeat abdominal xray: resolved SBO - (+) BM, flatus - Surgery consulted Dr. Cadena: no surgical intervention recommended recommended GI consult for possible terminal ileitis - GI consulted Dr. Hilton: outpatient colonoscopy recommended - tolerating diet, pain has resolved - ff up with GI as outpatient as scheduled UTI RULED OUT urine culture: negative asymptomatic given 2 days of empiric Ceftriaxone IV DYSLIPIDEMIA - on statin DEPRESSION - continue Effexor DVT PROPHYLAXIS - SCDs given DISPO d/c home today ff up with PCP next week GI as scheduled next month Total time spent on discharge = 30 MINUTES This includes examination of the patient, discharge planning, medication reconciliation, and communication with other providers. Discharge Instructions Discharge Instructions Admission Reason for Admission: Partial Small Bowel Obstruction Discharge Discharge Diagnosis / Problem: PARTIAL SMALL BOWEL OBSTRUCTION, RESOLVED Discharge Goals Goal(s): Diagnostic testing, Therapeutic intervention Activity Recommendations Activity Limitations: resume your previous activity . Instructions / Follow-Up Instructions / Follow-Up PLEASE ENSURE ADEQUATE DAILY FLUID INTAKE. SOFT DIET FOR 1-2 DAYS, THEN ADVANCE TOLERATED. CALL PRIMARY CARE PHYSICIAN OR RETURN TO ER IMMEDIATELY IF WITH RECURRENCE OF SYMPTOMS- ABDOMINAL PAIN, NAUSEA, CONSTIPATION, FEVER/CHILLS. PLEASE FOLLOW UP WITH MIREYA PRESCOTT ON Friday05/23/16 AT 12:50PM. FOLLOW UP WITH GROUND SYSTEMS ENGINEER SCHEDULED. OUTPATIENT COLONOSCOPY WITHIN 2 WEEKS. Current Hospital Diet Patient's current hospital diet: Low Fiber Diet Discharge Diet Recommended Diet: Low Fiber Diet Pending Studies Studies pending at discharge: yes List of pending studies: COLONOSCOPY IN 2 WEEKS Medical Emergencies . Who to Call and When: Medical Emergencies: If at any time you feel your situation is an emergency, please call 911 immediately. . Non-Emergent Contact Non-Emergency issues call your: Primary Care Provider Call Non-Emergent contact if: you have a fever, your pain is not controlled . Past History Medical & Surgical History: (1) H/O wisdom tooth extraction (2) Hx of cholecystectomy (3) S/P lumbar fusion (4) History of tonsillectomy (5) History of surgical removal of ganglion cyst (6) History of appendectomy (7) GERD (gastroesophageal reflux disease) (8) Dyslipidemia (9) LORENA (obstructive sleep apnea) . "Provider Documentation" section prepared by Josue Thomas. VTE Core Measure Inpt VTE Proph given/why not?: SCD's
[2016-05-17 17:14] LABS: BUN/CREATININE RATIO 9.6 (10-20); CALCIUM 7.9 mg/dl (8.5-10.1); CREATININE 0.76 mg/dl (0.60-1.20); MAGNESIUM 2.2 mg/dl (1.8-2.4); POTASSIUM 3.6 mmol/L (3.5-5.1)
[2016-05-17 19:13] VITALS: BP 109/66; PULSE 89; TEMP 37.1; O2SAT 100
== END 2016-05-17 19:25 | disposition home or self-care (01) | DRG 386 ==
LOC: ENRESERVTM → ENRESERVDT → C.EDB 12:27 → C.MSW 16:57
PROVIDERS: ADMIT Internal Medicine; ATTEND Internal Medicine
DX: K50.012 Crohn's disease of small intestine with intestinal obstruction (principal); E78.5 Hyperlipidemia, unspecified; F32.9 Major depressive disorder, single episode, unspecified; K21.9 Gastro-esophageal reflux disease without esophagitis; Z79.899 Other long term (current) drug therapy; Z87.19 Personal history of other diseases of the digestive system; Z83.3 Family history of diabetes mellitus; Z82.49 Family history of ischemic heart disease and other diseases of the circulatory system; Z84.1 Family history of disorders of kidney and ureter; Z80.3 Family history of malignant neoplasm of breast

== ENCOUNTER 2016-08-12 00:10 | Inpatient (IN) | payer BC ==
[~2016-08-12] VITALS: Ht 162.6 cm; Wt 65.5 kg
[~2016-08-12 00:10] MED LIST changes: -CITA20TA4 PO; +LORA10TA5 PO; +OMEP20CA59 PO; -SIMV10TA2 PO; +SIMV20TA2 PO; +TRAZ50TA35 PO; +VENL150C56 PO
[2016-08-12] MEDS ORDERED: ONDANSETRON INJ 2 MG/ML 2 ML VIAL IV STA ×2 (00:26→03:34)
[2016-08-12] MEDS: SODIUM CHLORIDE 0.9% 1000ML 1,000 ML IV STA ×2 (00:26→02:44)
[2016-08-12] MEDS ORDERED: MoRPHine SULFATE 4 MG/ML 1 ML CARP\\VIAL IV STA ×2 (00:26→03:34)
[2016-08-12] MEDS ORDERED: SODIUM CHLORIDE 0.9% 500ML 500 ML IV STA (00:26)
[2016-08-12] MEDS ORDERED: OPTIRAY 320 IV PRN (01:15)
[2016-08-12 01:33] LABS: BASO % 0.1 %; BASO ABS # 0.01 K/uL (0-0.2); COMPLETE YES; HEMATOCRIT 40.6 % (37-47); IG% 0.2 %; LYMPH % 7.6 %; LYMPH ABS # 0.98 K/uL (1.2-3.4); MEAN CELL VOLUME 92.3 fL (80-100); MEAN CORPUSCULAR HGB CONC 32.5 g/dl (32-36); MEAN PLATELET VOLUME 9.2 fL (7.4-10.4); MONO % 2.6 %; NEUT % 89.5 %; PLATELET COUNT 287 K/uL (130-400); WHITE BLOOD COUNT 12.89 K/uL (4.8-10.8)
[2016-08-12 01:48] LABS: URINE APPEARANCE CLOUDY (CLEAR); URINE BILIRUBIN NEG (NEG); URINE COLOR DK YELLOW; URINE EPITHELIAL CELL AUTO >30 /lpf (0-5); URINE NITRITE NEG (NEG); URINE SPECIFIC GRAVITY 1.029 (1.000-1.030); UROBILINOGEN NEG (NEG); ZZUR CULT IF INDIC CLEAN CATCH NO
[2016-08-12] MEDS ORDERED: LUBI8CAP4 PO (01:48)
[2016-08-12 01:56] LABS: BUN/CREATININE RATIO 18.4 (10-20); CALCIUM 8.8 mg/dl (8.5-10.1); CREATININE 0.68 mg/dl (0.60-1.20); POTASSIUM 3.9 mmol/L (3.5-5.1)
[2016-08-12 01:59] LABS: MANUAL MICROSCOPIC REQUIRED? NO; REVIEW REQ? NO
[2016-08-12] MEDS ORDERED: NURSING VERBAL MED ORDER ONE (03:45)
--- NOTE | 2016-08-12 03:48 | EMERGENCY ROOM VISIT NOTE ---
History First contact with patient: 00:22 Chief Complaint: ABDOMINAL PAIN Stated Complaint: ABDOMINAL PAIN History of Present Illness The patient is a 41 year old female who presents to the Emergency Room with complaints of nausea, vomiting and periumbilical upper abdominal pain for the past several hours. She describes pain as aching, ranging in severity 8 out of 10. Nothing makes it better or worse. No blood or black in the vomit. She has had bowel obstructions before and symptoms for similar. Patient denies chest pain, dyspnea, fever, chills, back pain, urinary symptoms, diarrhea. She did very small bowel movement today. Review of Systems See HPI for pertinent positives & negatives. A total of 10 systems reviewed and were otherwise negative. Past Medical/Surgical History Medical Problems: (1) Depression (2) Dyslipidemia (3) GERD (gastroesophageal reflux disease) (4) LORENA (obstructive sleep apnea) (5) SBO (small bowel obstruction) Surgical Problems: (1) H/O esophagogastroduodenoscopy (2) H/O wisdom tooth extraction (3) History of appendectomy (4) History of surgical removal of ganglion cyst (5) History of tonsillectomy (6) Hx of cholecystectomy (7) S/P lumbar fusion Family History FH: breast cancer SISTER Social History Smoking Status: Never Smoker Smokeless Tobacco Use: No Alcohol Use: none Drug Use: none Marital Status: Housing Status: lives with family Current/Historical Medications Scheduled Loratadine (Claritin), 1 TAB PO DAILY Lubiprostone (Amitiza), 8 MCG PO DAILY Montelukast Sod (Montelukast Sodium), 10 MG PO HS Omeprazole (Prilosec), 1 CAP PO DAILY Simvastatin (Zocor), 20 MG PO QPM Venlafaxine Hcl (Effexor Extended Rel), 150 MG PO DAILY Allergies Coded Allergies: BEE STING (Verified Allergy, Severe, ANAPHYLAXIS, 08/12/16) Amoxicillin (Verified Adverse Reaction, Mild, nausea/vomitting, 08/12/16) Erythromycin (Verified Adverse Reaction, Mild, nausea/vomitting, 08/12/16) Physical Exam Vital Signs Date Time Temp Pulse Resp B/P Pulse Ox O2 Delivery O2 Flow Rate FiO2 08/12/16 01:36 89 08/12/16 01:35 96 20 116/79 97 Room Air 08/12/16 01:34 98 Room Air 08/12/16 00:19 36.7 118 18 108/64 97 Room Air Physical Exam VITALS: Vitals are noted on the nurse's note and reviewed by myself. Vital signs tachycardic GENERAL: Pleasant female, in no acute distress, nondiaphoretic, well-developed well-nourished. SKIN: The skin was without rashes, erythema, edema, or bruising. There is no tenting of the skin. Capillary reflex less than 2 seconds. HEAD: Normocephalic atraumatic. EARS: External auditory canals clear, tympanic membranes pearly mercado without erythema or effusion bilaterally. EYES: Pupils equal round and reactive to light and accommodation. Conjunctivae without injection, sclerae without icterus. Extraocular movements intact. NOSE: Patent, turbinates without inflammation or discharge. MOUTH: Mucous membranes moist. Pharynx without erythema or exudate. Uvula midline. Airway patent. Tongue does not deviate. NECK: Supple without nuchal rigidity. No lymphadenopathy. No thyromegaly. Cervical spine is nontender. No JVD. HEART: Regular rate and rhythm without murmurs gallops or rubs. LUNGS: Clear to auscultation bilaterally without wheezes, rales or rhonchi. No dullness to percussion. No retractions or accessory muscle use. ABDOMEN: Positive bowel sounds x 4. Normal tympanic percussion. Soft, tender to palpation periumbilical region, without masses or organomegaly. Collier sign negative. No guarding or rebound tenderness. No CVA tenderness MUSCULOSKELETAL: No muscle atrophy, erythema, or edema noted. NEURO: Patient was alert and oriented to person place and time. Normal sensation to light and sharp touch. No focal neurological deficits. Medical Decision & Procedures Laboratory Results 08/12/16 01:15 Red Blood Count 4.40, Mean Corpuscular Volume 92.3, Mean Corpuscular Hemoglobin 30.0, Mean Corpuscular Hemoglobin Concent 32.5, Mean Platelet Volume 9.2, Neutrophils (%) (Auto) 89.5, Lymphocytes (%) (Auto) 7.6, Monocytes (%) (Auto) 2.6, Eosinophils (%) (Auto) 0.0, Basophils (%) (Auto) 0.1, Neutrophils # (Auto) 11.54, Lymphocytes # (Auto) 0.98, Monocytes # (Auto) 0.33, Eosinophils # (Auto) 0.00, Basophils # (Auto) 0.01 08/12/16 01:15 Test 08/12/16 01:15 08/12/16 01:23 08/12/16 01:25 08/12/16 03:33 White Blood Count 12.89 K/uL (4.8-10.8) Red Blood Count 4.40 M/uL (4.2-5.4) Hemoglobin 13.2 g/dL (12.0-16.0) Hematocrit 40.6 % (37-47) Mean Corpuscular Volume 92.3 fL (80-100) Mean Corpuscular Hemoglobin 30.0 pg (25-34) Mean Corpuscular Hemoglobin Concent 32.5 g/dl (32-36) Platelet Count 287 K/uL (130-400) Mean Platelet Volume 9.2 fL (7.4-10.4) Neutrophils (%) (Auto) 89.5 % Lymphocytes (%) (Auto) 7.6 % Monocytes (%) (Auto) 2.6 % Eosinophils (%) (Auto) 0.0 % Basophils (%) (Auto) 0.1 % Neutrophils # (Auto) 11.54 K/uL (1.4-6.5) Lymphocytes # (Auto) 0.98 K/uL (1.2-3.4) Monocytes # (Auto) 0.33 K/uL (0.11-0.59) Eosinophils # (Auto) 0.00 K/uL (0-0.5) Basophils # (Auto) 0.01 K/uL (0-0.2) RDW Standard Deviation 43.1 fL (36.4-46.3) RDW Coefficient of Variation 12.8 % (11.5-14.5) Immature Granulocyte % (Auto) 0.2 % Immature Granulocyte # (Auto) 0.03 K/uL (0.00-0.02) Anion Gap 7.0 mmol/L (3-11) Est Creatinine Clear Calc Drug Dose 92.2 ml/min Estimated GFR () 124.2 Estimated GFR (Non- 107.1 BUN/Creatinine Ratio 18.4 (10-20) Calcium Level 8.8 mg/dl (8.5-10.1) Total Bilirubin 0.4 mg/dl (0.2-1) Direct Bilirubin 0.1 mg/dl (0-0.2) Aspartate Amino Transf (AST/SGOT) 13 U/L (15-37) Alanine Aminotransferase (ALT/SGPT) 17 U/L (12-78) Alkaline Phosphatase 69 U/L (45-117) Total Protein 6.9 gm/dl (6.4-8.2) Albumin 3.6 gm/dl (3.4-5.0) Lipase 176 U/L (73-393) Bedside Lactic Acid Venous 0.68 mmol/L (0.90-1.70) Urine Color DK YELLOW Urine Appearance CLOUDY (CLEAR) Urine pH 5.0 (4.5-7.5) Urine Specific [place] 1.029 (1.000-1.030) Urine Protein TRACE (NEG) Urine Glucose (UA) NEG (NEG) Urine Ketones 1+ (NEG) Urine Occult Blood 1+ (NEG) Urine Nitrite NEG (NEG) Urine Bilirubin NEG (NEG) Urine Urobilinogen NEG (NEG) Urine Leukocyte Esterase NEG (NEG) Urine WBC (Auto) 1-5 /hpf (0-5) Urine RBC (Auto) 10-30 /hpf (0-4) Urine Hyaline Casts (Auto) 5-10 /lpf (0-5) Urine Epithelial Cells (Auto) >30 /lpf (0-5) Urine Bacteria (Auto) NEG (NEG) Medications Administered Medications (Trade) Dose Ordered Sig/Toño Route Start Time Stop Time Status Last Admin Dose Admin Morphine Sulfate (MoRPHine SULFATE INJ) 4 mg NOW STAT IV 08/12/16 00:26 08/12/16 00:29 DC 08/12/16 01:28 4 MG Ondansetron HCl 4 mg 4 mg NOW STAT IV 08/12/16 00:26 08/12/16 00:29 DC 08/12/16 01:28 4 MG Sodium Chloride 500 ml @ 999 mls/hr Q31M STAT IV 08/12/16 00:26 08/12/16 00:56 DC 08/12/16 01:29 999 MLS/HR Sodium Chloride (Nss 1000ml) 1,000 ml @ 125 mls/hr Q8H STAT IV 08/12/16 00:26 08/12/16 08:25 08/12/16 02:44 125 MLS/HR ED Course Prior records/ancillary studies reviewed. Triage Nursing notes reviewed. Additional history obtained from family. The patient's history was concerning for abdominal pain. Differential diagnosis: Etiologies such as diverticulitis, PUD, biliary pathology, UTI, pancreatitis, obstruction, mesenteric ischemia, aortic pathology, infections, inflammatory bowel disease, renal colic, as well as others were entertained. Physical examination findings: As above. ER treatment provided: Morphine, Zofran, IV fluids On reassessment the patient felt better. Diagnostics interpreted by me: The labs revealed leukocytosis. Stable H&H. Negative hCG, hyperglycemia without DKA Imaging studies: CT ABDOMEN & PELVIS: Comparison: CT abdomen and pelvis with contrast, 05/15/16. There are multiple dilated loops of small bowel in the abdomen with transition to decompressed ileum in the right lower quadrant (2-66), possibly due to area of stricturing. The location of the obstruction is identical to that on prior exam. The degree of small bowel dilatation is likewise similar. There is mild interloop ascites extending into the pelvis. There is no free air. The appendix is not identified. Status post cholecystectomy. Liver, gallbladder, pancreas, spleen, and adrenal glands are unremarkable. Kidneys are similar in size and enhancement, without hydronephrosis or radiopaque urolithiasis. There is a stable cyst of the right kidney. Aorta and IVC are normal. Urinary bladder and uterus are unremarkable. No acute osseous findings. L5-S1 interbody fusion. Radiologist: Barbie Silva M.D. Acute abdominal series with no free air or pneumothorax per my interpretation Consultation: A consultation was placed with the surgeon, Dr. Johnson. The case was discussed and diagnostics were reviewed. He recommends NG tube and admission. Please see his dictation for further intervention regarding his treatment plan. Exam and history seem consistent with recurrent small bowel traction. NG tube was placed. Patient was medicated as above. She was hydrated as above. She will be evaluated by surgery. Patient was agreeable to treatment plan of admission.By the evaluation outlined above emergent etiologies such as diverticulitis, PUD, biliary pathology, UTI, pancreatitis, mesenteric ischemia , aortic pathology, infections, inflammatory bowel disease, renal colic, as well as others were deemed relatively unlikely. The pt informed about the findings as listed above. All questions were answered and pleased with the treatment. Case reviewed with my attending Medical Decision As above Impression Primary Impression: SBO (small bowel obstruction) Departure Information Dispostion Being Evaluated By Surgeon Condition FAIR Referrals Nelly Davis PA-C (PCP) Patient Instructions [facility]
[2016-08-12 03:53] LABS: PREG INTERNAL NEGATIVE QC NEG CLEAR BACKGROUND; PREG INTERNAL POSITIVE QC POS CONTROL LINE
[2016-08-12 04:30] VITALS: BP 120/77; PULSE 112; TEMP 36.8; O2SAT 95; Ht 162.6 cm; Wt 65.5 kg
[2016-08-12] MEDS ORDERED: MoRPHine SULFATE 2 MG/ML CARP IV PRN (04:30)
[2016-08-12] MEDS ORDERED: ONDANSETRON INJ 2 MG/ML 2 ML VIAL IV PRN (04:30)
[2016-08-12] MEDS: SODIUM CHLORIDE 0.9% 1000ML 1,000 ML IV SCH ×4 (05:05→23:25)
[2016-08-12 05:06] VITALS: PULSE 84
--- NOTE | 2016-08-12 06:50 | DIAGNOSTIC IMAGING REPORT ---
ABDOMEN 2VIEW W/PA CHEST RTN CLINICAL HISTORY: Dominant pain, nausea, vomiting, history small bowel obstruction. COMPARISON STUDY: 05/16/2016 FINDINGS: The erect chest reveals no free air. There is no focal pulmonary consolidation. Right and supine views the abdomen reveal postsurgical changes within the sacrum. There are surgical clips in right upper quadrant consistent with a prior cholecystectomy. There are scattered air-fluid levels on the erect study. There is a mildly prominent left mid abdominal small bowel loop which is at the upper limits of normal in size. IMPRESSION: Nonspecific bowel gas pattern. Left mid abdominal small bowel loops the upper limits of normal in size. Multiple scattered air-fluid levels. An early or partial small bowel obstruction cannot be excluded. There is no free air. Electronically signed by: Watson Johnston M.D. 08/12/2016 6:49 AM Dictated Date/Time: 08/12/2016 6:47 AM
--- NOTE | 2016-08-12 06:50 | DIAGNOSTIC IMAGING REPORT ---
ABDOMEN AND PELVIS CT WITH IV CONTRAST CT DOSE: 292.76 mGy.cm HISTORY: Pain abd pain, mid abd TECHNIQUE: Multiaxial CT images of the abdomen and pelvis were performed following the use of intravenous contrast. COMPARISON STUDY: 05/15/2016 FINDINGS: Lung bases are clear. Liver spleen and pancreas are unremarkable. Prior cholecystectomy. Several slightly distended loops of small bowel extending to the right central abdominal/pelvic region. Etiology is unclear liver may be a mild degree of stricture and/or wall thickening of the loop terminal ileum. A small amount of pelvic ascites. Uterus is anteflexed. Colon shows no evidence for distention. Kidneys negative for hydronephrosis. There is a stable left renal cyst. IMPRESSION: 1. Partial small bowel obstruction with a potential stricture versus focal component of inflammatory bowel change within the right lower quadrant. 2. Study is otherwise unremarkable and overall is unchanged. 3. Prior cholecystectomy. Electronically signed by: Romie Boyle M.D. 08/12/2016 6:49 AM Dictated Date/Time: 08/12/2016 6:46 AM
--- NOTE | 2016-08-12 06:56 | DIAGNOSTIC IMAGING REPORT ---
KUB CLINICAL HISTORY: Supine abdomen for nasogastric tube placement COMPARISON STUDY: 08/12/2016 FINDINGS: There is a nasogastric tube within the stomach. There are surgical clips within the right upper quadrant consistent with a prior cholecystectomy. There are postsurgical changes within the sacrum. There is contrast within the kidneys and bladder secondary to recent CT scan. There is no hydronephrosis. IMPRESSION: Nasogastric tube within the stomach Electronically signed by: Watson Johnston M.D. 08/12/2016 6:55 AM Dictated Date/Time: 08/12/2016 6:54 AM
[2016-08-12 07:08] VITALS: BP 99/65; PULSE 92; TEMP 36.6; O2SAT 96
--- NOTE | 2016-08-12 08:28 | Medical Consult ---
Consultation Date of Consultation: August 12, 2016. Attending Physician: Armando Johnson D.O. Reason for Consultation: Recurrent Small Bowel Obstruction History of Present Illness 41-year-old female with past medical history significant for partial small bowel obstruction and irritable bowel syndrome presented to the ED yesterday with abdominal pain, nausea, and vomiting. Abdominal pain was located in the right lower quadrant, it did not radiate. Patient reports that the abdominal pain started a few hours before presenting to the ED. She states that she had a partial bowel obstruction in May of this year that was treated conservatively over a 2 day hospital stay and did not require an NG tube. During that stay, patient was evaluated by GI, who recommended outpatient colonoscopy. Patient reports that she did have a colonoscopy since her discharge. Per patient- colonoscopy was fine- no diverticulosis noted. Patient is followed by KIAN Francis out of [place]. Patient reports that she was started on Amitiza approximately 2 weeks ago for her IBS that seemed to be helping with her infrequent bowel movements. She reports that she will have a bowel movement roughly every 2 days. Prior to the onset of abdominal pain her appetite was fairly good- her diet consists mainly of pasta. She states that she avoids fruits and vegetables. She reports that she did have a very small bowel movement yesterday. Currently, her pain is controlled. She denies nausea or vomiting. Past Medical/Surgical History Medical Problems: (1) SBO (small bowel obstruction) Surgical History: 1. Appendectomy- Ruptured Appendicitis in 2014. 2. Cholecystectomy Family History FH: breast cancer SISTER Social History Smoking Status: Former Smoker Smokeless Tobacco Use: No Drug Use: none Marital Status: Housing Status: lives with family Allergies Coded Allergies: BEE STING (Verified Allergy, Severe, ANAPHYLAXIS, 08/12/16) Amoxicillin (Verified Adverse Reaction, Mild, nausea/vomitting, 08/12/16) Erythromycin (Verified Adverse Reaction, Mild, nausea/vomitting, 08/12/16) Current Inpatient Medications Current Inpatient Medications Medications (Trade) Dose Ordered Sig/Toño Route Start Time Stop Time Status Last Admin Dose Admin Ioversol 125 ml 125 ml UD PRN IV 08/12/16 01:15 08/16/16 01:14 Sodium Chloride (Nss 1000ml) 1,000 ml @ 150 mls/hr Q6H40M IV 08/12/16 04:30 09/11/16 04:29 08/12/16 05:05 150 MLS/HR Ondansetron HCl (Zofran Inj) 4 mg Q4H PRN IV 08/12/16 04:30 09/11/16 04:29 Morphine Sulfate 2 mg 2 mg Q1H PRN IV 08/12/16 04:30 08/26/16 04:29 Pantoprazole Sodium/Syringe (Protonix Inj/ Syringe) 10 ml @ 5 mls/min DAILY@11 IV 08/12/16 11:00 09/11/16 10:59 Review of Systems Constitutional: No chills, No fever, No sweats Abdomen: + pain (Pain is controlled with pain medication. ), No constipation, No diarrhea, No nausea, No vomiting Physical Exam Date Time Temp Pulse Resp B/P Pulse Ox O2 Delivery O2 Flow Rate FiO2 08/12/16 07:08 36.6 92 18 99/65 96 Room Air 08/12/16 05:06 84 08/12/16 04:30 36.8 112 18 120/77 95 Room Air 08/12/16 04:30 Room Air 08/12/16 04:27 104 17 125/78 95 08/12/16 04:02 104 17 125/78 95 Room Air 08/12/16 03:06 89 15 95 08/12/16 02:06 87 17 94 08/12/16 01:36 89 08/12/16 01:35 96 20 116/79 97 Room Air 08/12/16 01:34 98 Room Air 08/12/16 00:19 36.7 118 18 108/64 97 Room Air General Appearance: WD/WN, no apparent distress Head: normocephalic, atraumatic Respiratory/Chest: chest non-tender, lungs clear, normal breath sounds, no respiratory distress, no accessory muscle use Cardiovascular: regular rate, rhythm, no edema Abdomen/GI: non tender, soft (Patient reports that abdomen was quite distended on admission, much improved today. ) Laboratory Results Last 24 Hours Test 08/12/16 01:15 08/12/16 01:23 08/12/16 01:25 White Blood Count 12.89 K/uL Red Blood Count 4.40 M/uL Hemoglobin 13.2 g/dL Hematocrit 40.6 % Mean Corpuscular Volume 92.3 fL Mean Corpuscular Hemoglobin 30.0 pg Mean Corpuscular Hemoglobin Concent 32.5 g/dl Platelet Count 287 K/uL Mean Platelet Volume 9.2 fL Neutrophils (%) (Auto) 89.5 % Lymphocytes (%) (Auto) 7.6 % Monocytes (%) (Auto) 2.6 % Eosinophils (%) (Auto) 0.0 % Basophils (%) (Auto) 0.1 % Neutrophils # (Auto) 11.54 K/uL Lymphocytes # (Auto) 0.98 K/uL Monocytes # (Auto) 0.33 K/uL Eosinophils # (Auto) 0.00 K/uL Basophils # (Auto) 0.01 K/uL RDW Standard Deviation 43.1 fL RDW Coefficient of Variation 12.8 % Immature Granulocyte % (Auto) 0.2 % Immature Granulocyte # (Auto) 0.03 K/uL Sodium Level 142 mmol/L Potassium Level 3.9 mmol/L Chloride Level 107 mmol/L Carbon Dioxide Level 28 mmol/L Anion Gap 7.0 mmol/L Blood Urea Nitrogen 12 mg/dl Creatinine 0.68 mg/dl Est Creatinine Clear Calc Drug Dose 92.2 ml/min Estimated GFR () 124.2 Estimated GFR (Non- 107.1 BUN/Creatinine Ratio 18.4 Random Glucose 140 mg/dl Calcium Level 8.8 mg/dl Total Bilirubin 0.4 mg/dl Direct Bilirubin 0.1 mg/dl Aspartate Amino Transf (AST/SGOT) 13 U/L Alanine Aminotransferase (ALT/SGPT) 17 U/L Alkaline Phosphatase 69 U/L Total Protein 6.9 gm/dl Albumin 3.6 gm/dl Lipase 176 U/L Human Chorionic Gonadotropin, Qual NEG Bedside Lactic Acid Venous 0.68 mmol/L Urine Color DK YELLOW Urine Appearance CLOUDY Urine pH 5.0 Urine Specific [place] 1.029 Urine Protein TRACE Urine Glucose (UA) NEG Urine Ketones 1+ Urine Occult Blood 1+ Urine Nitrite NEG Urine Bilirubin NEG Urine Urobilinogen NEG Urine Leukocyte Esterase NEG Urine WBC (Auto) 1-5 /hpf Urine RBC (Auto) 10-30 /hpf Urine Hyaline Casts (Auto) 5-10 /lpf Urine Epithelial Cells (Auto) >30 /lpf Urine Bacteria (Auto) NEG ABDOMEN AND PELVIS CT WITH IV CONTRAST CT DOSE: 292.76 mGy.cm HISTORY: Pain abd pain, mid abd TECHNIQUE: Multiaxial CT images of the abdomen and pelvis were performed following the use of intravenous contrast. COMPARISON STUDY: 05/15/2016 FINDINGS: Lung bases are clear. Liver spleen and pancreas are unremarkable. Prior cholecystectomy. Several slightly distended loops of small bowel extending to the right central abdominal/pelvic region. Etiology is unclear liver may be a mild degree of stricture and/or wall thickening of the loop terminal ileum. A small amount of pelvic ascites. Uterus is anteflexed. Colon shows no evidence for distention. Kidneys negative for hydronephrosis. There is a stable left renal cyst. IMPRESSION: 1. Partial small bowel obstruction with a potential stricture versus focal component of inflammatory bowel change within the right lower quadrant. 2. Study is otherwise unremarkable and overall is unchanged. 3. Prior cholecystectomy. KUB CLINICAL HISTORY: Supine abdomen for nasogastric tube placement COMPARISON STUDY: 08/12/2016 FINDINGS: There is a nasogastric tube within the stomach. There are surgical clips within the right upper quadrant consistent with a prior cholecystectomy. There are postsurgical changes within the sacrum. There is contrast within the kidneys and bladder secondary to recent CT scan. There is no hydronephrosis. IMPRESSION: Nasogastric tube within the stomach Electronically signed by: Watson Johnston M.D. 08/12/2016 6:55 AM Dictated Date/Time: 08/12/2016 6:54 AM Assessment & Plan Recurrent Small Bowel Obstruction: 1. Patient's pain is controlled. Denies nausea or vomiting. 2. Patient has NG tube in place- no output at time of examination. 3. Patient is NPO. 4. Reviewed patient's recent labs- Elevated WBC. Patient is slowly improving. Will continue to treat conservatively. No surgical intervention indicated at this time. May need intervention in future as this is the third small obstruction in [address] Johnson in to see and examine patient.
[2016-08-12] MEDS: PANTOprazole INJ 40 MG in SYRINGE 0 ML IV SCH (11:12)
[2016-08-12 15:05] VITALS: BP 97/65; PULSE 85; TEMP 36.8; O2SAT 95
[2016-08-12 20:00] VITALS: O2SAT 95
[2016-08-12 23:10] VITALS: BP 110/72; PULSE 82; TEMP 36.8; O2SAT 96
[2016-08-13] MEDS: SODIUM CHLORIDE 0.9% 1000ML 1,000 ML IV SCH ×2 (05:53→13:50)
--- NOTE | 2016-08-13 07:13 | Surgery Progress Note ---
Surgery Progress Note Date of Service August 13, 2016. Subjective + feeling well, + flatus, + pain controlled, No bowel movement, No complaints, No nausea, No vomiting In to see patient this AM. Patient reports that she is doing well this AM. Reports that her pain and discomfort are controlled. Denies nausea or vomiting. States that she feels like she is much improved from admission. Not feeling hungry yet, but would like to try to advance diet to have some clear liquids. Objective Vital Signs: Date Time Temp Pulse Resp B/P Pulse Ox O2 Delivery O2 Flow Rate FiO2 08/12/16 23:30 Room Air 08/12/16 23:10 36.8 82 16 110/72 96 Room Air 08/12/16 20:00 95 Room Air 08/12/16 17:48 Room Air 08/12/16 15:05 36.8 85 18 97/65 95 Room Air 08/12/16 07:30 Room Air Physical Exam: nasogastric drainage (200 cc yesterday; 250 so far today. ) General Appearance: WD/WN, no apparent distress Head: normocephalic, atraumatic Respiratory/Chest: no respiratory distress, no accessory muscle use Abdomen: non tender, soft Assessment & Plan Patient continues to improve. Pain controlled. Vital signs stable. KUB ordered for this AM. Patient is passing gas, no BM yet- will remove NG tube and advance patient's diet to clear liquids.
[2016-08-13 08:34] LABS: BASO % 0.1 %; BASO ABS # 0.01 K/uL (0-0.2); COMPLETE YES; EOS % 0.3 %; HEMATOCRIT 35.7 % (37-47); IG% 0.3 %; LYMPH % 11.5 %; LYMPH ABS # 1.18 K/uL (1.2-3.4); MEAN CELL VOLUME 93.9 fL (80-100); MEAN CORPUSCULAR HEMOGLOBIN 30.3 pg (25-34); MEAN CORPUSCULAR HGB CONC 32.2 g/dl (32-36); MEAN PLATELET VOLUME 9.4 fL (7.4-10.4); MONO % 4.9 %; NEUT % 82.9 %; PLATELET COUNT 227 K/uL (130-400); WHITE BLOOD COUNT 10.26 K/uL (4.8-10.8)
[2016-08-13] MEDS ORDERED: NON-FORMULARY MEDICATION (Omeprazole (Prilosec) 1 CAP) PO SCH (09:00)
[2016-08-13 09:10] LABS: BUN/CREATININE RATIO 13.1 (10-20); CALCIUM 7.9 mg/dl (8.5-10.1); CREATININE 0.48 mg/dl (0.60-1.20); POTASSIUM 3.5 mmol/L (3.5-5.1)
[2016-08-13] MEDS: LORATADINE 10 MG TAB PO SCH (10:07)
[2016-08-13] MEDS: LUBIPROSTONE 8 MCG CAP PO SCH (10:07)
[2016-08-13] MEDS: VENLAFAXINE HCL XR 150 MG CAPXR PO SCH (10:08)
[2016-08-13] MEDS ORDERED: NURSING VERBAL MED ORDER ONE ×2 (10:15→14:45)
--- NOTE | 2016-08-13 11:10 | DIAGNOSTIC IMAGING REPORT ---
KUB HISTORY: Generalized abdominal pain. Small bowel obstruction. COMPARISON: KUB 08/12/2016. FINDINGS: The nasogastric tube has been removed. Cholecystectomy. Fusion hardware seen at the lumbar sacral junction. A few borderline dilated air-filled loops of small bowel seen within the left side the abdomen measuring up to 2.9 cm. This is improved compared to the prior study. There is gas and stool within the colon. Multiple pelvic phleboliths. No renal calculi. No ureteral calculi. No pneumoperitoneum or pneumatosis. IMPRESSION: Improvement in the borderline dilated air-filled loops of small bowel within the left side of the abdomen. This suggests a resolving partial small bowel obstruction. Electronically signed by: Cy Hernandez M.D. 08/13/2016 11:09 AM Dictated Date/Time: 08/13/2016 11:06 AM
[2016-08-13] MEDS: PANTOprazole INJ 40 MG in SYRINGE 0 ML IV SCH (11:46)
[2016-08-13 15:46] VITALS: BP 102/65; PULSE 92; TEMP 36.9; O2SAT 95
[2016-08-13] MEDS ORDERED: MONTELUKAST SOD 10 MG TAB PO SCH (21:00)
[2016-08-13] MEDS ORDERED: SIMVASTATIN 20 MG TAB PO SCH (21:00)
[2016-08-13 23:30] VITALS: BP 103/67; PULSE 87; TEMP 37.3; O2SAT 95
--- NOTE | 2016-08-14 07:28 | Surgery Progress Note ---
Surgery Progress Note Date of Service August 14, 2016. Subjective + ambulating, + bowel movement (patient reports that she had a bowel movement yesterday. ), + feeling well, + flatus, + pain controlled, No complaints, No nausea, No vomiting In to see patient this morning, she was up and walking around in room. NG tube is out. Denies nausea. Denies pain or discomfort. She reports that she is doing well and would like to be discharged today. She had a bowel movement yesterday. She is passing gas. Would like to try to advance her diet- feeling a little bit hungry. Objective Vital Signs: Date Time Temp Pulse Resp B/P Pulse Ox O2 Delivery O2 Flow Rate FiO2 08/13/16 23:55 Room Air 08/13/16 23:30 37.3 87 16 103/67 95 Room Air 08/13/16 15:46 36.9 92 18 102/65 95 Room Air 08/13/16 15:40 Room Air 08/13/16 08:00 Room Air General Appearance: WD/WN, no apparent distress Abdomen: normal bowel sounds, non tender, non distended, soft Laboratory Results: Results Past 24 Hours Test 08/13/16 07:56 Range/Units White Blood Count 10.26 4.8-10.8 K/uL Red Blood Count 3.80 4.2-5.4 M/uL Hemoglobin 11.5 12.0-16.0 g/dL Hematocrit 35.7 37-47 % Mean Corpuscular Volume 93.9 80-100 fL Mean Corpuscular Hemoglobin 30.3 25-34 pg Mean Corpuscular Hemoglobin Concent 32.2 32-36 g/dl Platelet Count 227 130-400 K/uL Mean Platelet Volume 9.4 7.4-10.4 fL Neutrophils (%) (Auto) 82.9 % Lymphocytes (%) (Auto) 11.5 % Monocytes (%) (Auto) 4.9 % Eosinophils (%) (Auto) 0.3 % Basophils (%) (Auto) 0.1 % Neutrophils # (Auto) 8.51 1.4-6.5 K/uL Lymphocytes # (Auto) 1.18 1.2-3.4 K/uL Monocytes # (Auto) 0.50 0.11-0.59 K/uL Eosinophils # (Auto) 0.03 0-0.5 K/uL Basophils # (Auto) 0.01 0-0.2 K/uL RDW Standard Deviation 43.9 36.4-46.3 fL RDW Coefficient of Variation 12.7 11.5-14.5 % Immature Granulocyte % (Auto) 0.3 % Immature Granulocyte # (Auto) 0.03 0.00-0.02 K/uL Sodium Level 144 136-145 mmol/L Potassium Level 3.5 3.5-5.1 mmol/L Chloride Level 110 98-107 mmol/L Carbon Dioxide Level 28 21-32 mmol/L Anion Gap 6.0 3-11 mmol/L Blood Urea Nitrogen 6 7-18 mg/dl Creatinine 0.48 0.60-1.20 mg/dl Est Creatinine Clear Calc Drug Dose 130.6 ml/min Estimated GFR () 139.2 Estimated GFR (Non- 120.1 BUN/Creatinine Ratio 13.1 10-20 Random Glucose 85 70-99 mg/dl Calcium Level 7.9 8.5-10.1 mg/dl KUB HISTORY: Generalized abdominal pain. Small bowel obstruction. COMPARISON: KUB 08/12/2016. FINDINGS: The nasogastric tube has been removed. Cholecystectomy. Fusion hardware seen at the lumbar sacral junction. A few borderline dilated air-filled loops of small bowel seen within the left side the abdomen measuring up to 2.9 cm. This is improved compared to the prior study. There is gas and stool within the colon. Multiple pelvic phleboliths. No renal calculi. No ureteral calculi. No pneumoperitoneum or pneumatosis. IMPRESSION: Improvement in the borderline dilated air-filled loops of small bowel within the left side of the abdomen. This suggests a resolving partial small bowel obstruction. Electronically signed by: Cy Hernandez M.D. 08/13/2016 11:09 AM Assessment & Plan 08/14/16: Patient up and walking around in room- continuing to improve. KUB from yesterday reviewed- SBO improving. Labs reviewed from yesterday. Vital signs remain stable. Patient reports that she is a little bit hungry- will advance diet and see how she tolerates it. Possible discharge this afternoon if she tolerates breakfast and lunch. She will follow-up with Dr. Johnson in the office. 08/13/16: Patient continues to improve. Pain controlled. Vital signs stable. KUB ordered for this AM. Patient is passing gas, no BM yet- will remove NG tube and advance patient's diet to clear liquids.
[2016-08-14 07:33] VITALS: BP 111/68; PULSE 81; TEMP 37.1; O2SAT 96
[2016-08-14] MEDS ORDERED: ACETAMINOPHEN 325 MG TAB ONE (07:52)
[2016-08-14] MEDS ORDERED: NURSING VERBAL MED ORDER ONE (08:00)
[2016-08-14] MEDS ORDERED: ACETAMINOPHEN 325 MG TAB PO PRN ×2 (08:00)
[2016-08-14] MEDS: LORATADINE 10 MG TAB PO SCH (09:33)
[2016-08-14] MEDS: LUBIPROSTONE 8 MCG CAP PO SCH (09:33)
[2016-08-14] MEDS: VENLAFAXINE HCL XR 150 MG CAPXR PO SCH (09:33)
[2016-08-14] MEDS: PANTOprazole INJ 40 MG in SYRINGE 0 ML IV SCH (10:53)
[2016-08-14 13:05] VITALS: BP 111/68; PULSE 81; TEMP 37.1; O2SAT 96
--- NOTE | 2016-08-16 08:16 | Discharge Instructions ---
Discharge Instructions Date of Service August 14, 2016. Admission Reason for Admission: Recurrent Small Bowel Obstruction Discharge Discharge Diagnosis / Problem: Recurrent Small Bowel Obstruction Discharge Goals Goal(s): Decrease discomfort, Improve function Activity Recommendations Activity Limitations: as noted below Lifting Limitations: gradually increase as tolerated Exercise/Sports Limitations: gradually increase as tolerated May Resume Sexual Activity: when tolerated Shower/Bathe: no limitations . Instructions / Follow-Up Instructions / Follow-Up Diet: Avoid foods that are high in fiber, this includes raw fruits and vegetables. Please follow-up with Dr. Johnson in the office. To schedule an appointment please call [phone]. Any questions or concerns please call the office at [phone]. Current Hospital Diet Patient's current hospital diet: Regular Diet Discharge Diet Recommended Diet: Low Fiber Diet Pending Studies Studies pending at discharge: no Medical Emergencies . Who to Call and When: Medical Emergencies: If at any time you feel your situation is an emergency, please call 911 immediately. . Non-Emergent Contact Non-Emergency issues call your: Primary Care Provider, Surgeon Call Non-Emergent contact if: temperature is above 101.5, your pain is not controlled . "Provider Documentation" section prepared by Livia Bean. . VTE Core Measure Inpt VTE Proph given/why not?: Treatment not indicated
--- NOTE | 2016-08-16 09:36 | Discharge Summary ---
Discharge Summary Date of Service August 16, 2016. Admission Date/Reason August 12, 2016 at 05:14 Recurrent Small Bowel Obstruction. Discharge Date/Disposition August 14, 2016 Home Diagnosis Principal Diagnosis: (1.) Recurrent Small Bowel Obstruction Secondary Diagnoses/Problems: (1) Depression (2) Dyslipidemia (3) GERD (gastroesophageal reflux disease) (4) LORENA (obstructive sleep apnea) Consultations (1.) General Surgery Medication Reconciliation Loratadine (Claritin), 1 TAB PO DAILY Lubiprostone (Amitiza), 8 MCG PO DAILY Montelukast Sod (Montelukast Sodium), 10 MG PO HS Omeprazole (Prilosec), 1 CAP PO DAILY Simvastatin (Zocor), 20 MG PO QPM Venlafaxine Hcl (Effexor Extended Rel), 150 MG PO DAILY Admission Physical Exam As per Admitting History & Physical. Hospital Course General Surgery was consulted on Ms. Newberry for recurrent small bowel obstruction. This is the third small bowel obstruction in 2 years. Patient was admitted by Dr. Johnson. All previous small bowel obstructions were treated with conservative measures. During this hospital stay patient was treated conservatively as well. Ms. Newberry was made NPO and an NG tube was placed. Patient's diet was slowly advanced during hospital stay. She tolerated clear liquids and then a regular diet prior to discharge. Patient will follow-up with Dr. Johnson in the office for further discussion of future treatment plans. Patient is obviously becoming annoyed with her condition and is considering surgical options at this time. Patient is followed by KIAN Francis, [place]. Discharge Instructions Please refer to the electronic Patient Visit Report (Discharge Instructions) for additional information.
[2017-01-13] MEDS ORDERED: LACTCHW3 PO (15:15)
[2017-01-13] MEDS ORDERED: METR-163 PO (15:15)
[2017-01-13] MEDS ORDERED: CIPR1TAB10 PO (15:15)
== END 2016-08-14 13:20 | disposition home or self-care (01) | DRG 390 ==
LOC: ENRESERVDT → ENRESERVTM → C.EDB 00:11 → C.3E 05:14
PROVIDERS: ADMIT Surgery; ATTEND Surgery
DX: K56.60 Unspecified intestinal obstruction (principal); R10.9 Unspecified abdominal pain; Z80.3 Family history of malignant neoplasm of breast; F32.9 Major depressive disorder, single episode, unspecified; E78.5 Hyperlipidemia, unspecified; K21.9 Gastro-esophageal reflux disease without esophagitis; G47.33 Obstructive sleep apnea (adult) (pediatric)

== ENCOUNTER 2016-08-30 08:39 | Inpatient (IN) | payer BC ==
[~2016-08-30] VITALS: Ht 162.6 cm; Wt 65.0 kg
[2016-08-30] VITALS (10 sets, daily range): BP systolic 93–111; BP diastolic 51–74; PULSE 85–106; TEMP 36.6–37.1; O2SAT 94–98; Ht 162.6 cm; Wt 65.0 kg
[~2016-08-30 08:39] MED LIST changes: -CALC500C70 PO; -GLUC10007 PO; +LUBI8CAP4 PO; -MULT-506 PO; -TRAZ50TA35 PO
[2016-08-30] MEDS ORDERED: SODIUM CHLORIDE 0.9% 1000ML 1,000 ML IV STA (08:50)
[2016-08-30] MEDS ORDERED: ONDANSETRON INJ 2 MG/ML 2 ML VIAL IV STA (08:50)
[2016-08-30] MEDS ORDERED: MoRPHine SULFATE 10 MG/ML CARP/VIAL IV STA ×2 (08:50→10:52)
[2016-08-30 09:33] LABS: URINE APPEARANCE TURBID (CLEAR); URINE BILIRUBIN NEG (NEG); URINE EPITHELIAL CELL AUTO >30 /lpf (0-5); URINE NITRITE NEG (NEG); URINE SPECIFIC GRAVITY 1.025 (1.000-1.030); UROBILINOGEN NEG (NEG); ZZUR CULT IF INDIC CLEAN CATCH YES
[2016-08-30 09:33] LABS: HEMATOCRIT 42.7 % (37-47); MEAN CELL VOLUME 91.2 fL (80-100); MEAN CORPUSCULAR HEMOGLOBIN 28.8 pg (25-34); MEAN CORPUSCULAR HGB CONC 31.6 g/dl (32-36); MEAN PLATELET VOLUME 9.5 fL (7.4-10.4); PLATELET COUNT 316 K/uL (130-400); RED BLOOD COUNT 4.68 M/uL (4.2-5.4); WHITE BLOOD COUNT 23.61 K/uL (4.8-10.8)
[2016-08-30 09:37] LABS: MANUAL MICROSCOPIC REQUIRED? NO; REVIEW REQ? YES; URINE COLOR DK YELLOW
[2016-08-30 09:54] LABS: BUN/CREATININE RATIO 12.7 (10-20); CALCIUM 8.9 mg/dl (8.5-10.1); CREATININE 0.7 mg/dl (0.60-1.20); POTASSIUM 3.7 mmol/L (3.5-5.1)
--- NOTE | 2016-08-30 09:57 | DIAGNOSTIC IMAGING REPORT ---
PA CHEST RADIOGRAPH AND UPRIGHT AND SUPINE AP RADIOGRAPHS OF THE ABDOMEN CLINICAL HISTORY: Severe abdominal pain. COMPARISON STUDY: Chest radiograph and abdominal series and CT of the abdomen and pelvis August 12, 2016. FINDINGS: Lung volumes are normal. There is no consolidation. No pneumothorax or pleural effusion is present. Pulmonary vascularity is normal. Cardiac size is normal. Mediastinal contours are normal. There is no free air. There are cholecystectomy clips and post surgical findings within the lumbosacral spine. Scattered air-fluid levels are noted within small bowel and upright projections. Mild small bowel dilatation is present. IMPRESSION: 1. Mild small bowel dilatation suggestive of a small bowel obstruction. 2. No free air. 3. No acute cardiopulmonary findings. Electronically signed by: Dg Kimbrough M.D. 08/30/2016 9:56 AM Dictated Date/Time: 08/30/2016 9:53 AM
[2016-08-30 10:11] LABS: BASO % 0.1 %; BASO ABS # 0.02 K/uL (0-0.2); COMPLETE YES; IG% 0.4 %; LYMPH % 2.8 %; LYMPH ABS # 0.65 K/uL (1.2-3.4); MONO % 2.9 %; NEUT % 93.8 %
[2016-08-30] MEDS ORDERED: OPTIRAY 320 IV PRN (10:15)
--- NOTE | 2016-08-30 10:48 | DIAGNOSTIC IMAGING REPORT ---
CT OF THE ABDOMEN AND PELVIS WITH CONTRAST CLINICAL HISTORY: Abdominal pain. Small bowel obstruction. COMPARISON STUDY: CT of the abdomen and pelvis August 12, 2016. TECHNIQUE: Following IV administration of 93 mL of Optiray-320, axial images of the abdomen and pelvis were obtained from the lung bases to the proximal femurs. Images were reviewed in the axial, sagittal, and coronal planes. IV contrast was administered without complication. CT DOSE: 431.86 mGycm FINDINGS: Visualized portions of the lower chest demonstrate minimal opacity within the right middle lobe which is partially imaged. There is no pneumatosis, free air or portal venous gas. There is no biliary ductal dilatation status post cholecystectomy. The liver, spleen, adrenal glands, right kidney and pancreas are normal. There is a 2 cm cyst within the upper pole the left kidney. Postsurgical findings at the lumbosacral junction are noted. The proximal to mid small bowel is mildly dilated and fluid-filled with a transition point within the right lower quadrant shown on image 335 of 471. Distal small bowel is decompressed. Small bowel loops measure up to 3.5 cm in caliber. Similar findings were shown on CT of August 12, 2016. The appendix is not identified. A 3.2 cm right ovarian cystic lesion is noted. A small amount of ascites is noted. No suspicious skeletal lesions are identified. IMPRESSION: 1. Findings consistent with a moderate grade partial small bowel obstruction with a transition point within the right lower quadrant. Similar findings were shown on CT of August 12, 2016. Small amount of associated ascites and mesenteric infiltration. No pneumatosis, free air or portal venous gas. 2. 3.2 cm right ovarian cyst. Electronically signed by: Dg Kimbrough M.D. 08/30/2016 10:47 AM Dictated Date/Time: 08/30/2016 10:29 AM
[2016-08-30] MEDS ORDERED: METRONIDAZOLE 500MG / 100ML NSS IV STA ×2 (11:18→15:22)
[2016-08-30] MEDS ORDERED: ONDANSETRON INJ 2 MG/ML 2 ML VIAL IV PRN ×2 (11:30→15:00)
[2016-08-30] MEDS ORDERED: MoRPHine SULFATE 2 MG/ML CARP IV PRN (11:30)
[2016-08-30] MEDS ORDERED: SODIUM CHLORIDE 0.9% 1000ML 1,000 ML IV SCH (11:30)
[2016-08-30] MEDS ORDERED: MoRPHine SULFATE 4 MG/ML 1 ML CARP\\VIAL IV PRN (11:30)
--- NOTE | 2016-08-30 11:46 | History and Physical: Surg Cnt ---
History & Physical Date Aug 30, 2016. Chief Complaint Yari is a pleasant 41 year-old female who presented to emergency room with complaint of generalized abdominal pain, nausea, and vomiting. Yari was just recently admitted 2 weeks ago for partial SBO which resolved with conservative measures. This is her 3rd episode of small bowel obstruction in the past 3 months and overall 4th episode since last year. She had a her appendix removed in October of 2014 which was thought to be due to acute appendicitis however pathology showed no appendicitis and she had an adhesive band which was removed in the RLQ at that time. She has a right midline transverse laparotomy scar from that surgical procedure. She has had a colonoscopy since her May admission to rule out inflammatory bowel disease given findings of right sided colitis which was normal. At this point she would like to have surgical removal of adhesions. History of Present Illness The patient is a 41 year old female with complaints of Past Medical/Surgical History Medical Problems: (1) Depression (2) Dyslipidemia (3) GERD (gastroesophageal reflux disease) (4) LORENA (obstructive sleep apnea) (5) SBO (small bowel obstruction) (6) Small bowel obstruction Surgical Problems: (1) H/O esophagogastroduodenoscopy (2) H/O wisdom tooth extraction (3) History of appendectomy (4) History of surgical removal of ganglion cyst (5) History of tonsillectomy (6) Hx of cholecystectomy (7) S/P lumbar fusion Allergies Coded Allergies: BEE STING (Verified Allergy, Severe, ANAPHYLAXIS, 08/12/16) Amoxicillin (Verified Adverse Reaction, Mild, nausea/vomitting, 08/12/16) Erythromycin (Verified Adverse Reaction, Mild, nausea/vomitting, 08/12/16) Home Medications Scheduled Loratadine (Claritin), 10 MG PO DAILY Lubiprostone (Amitiza), 8 MCG PO DAILY Montelukast Sod (Montelukast Sodium), 10 MG PO HS Omeprazole (Prilosec), 20 MG PO DAILY Simvastatin (Zocor), 20 MG PO QPM Venlafaxine Hcl (Effexor Extended Rel), 150 MG PO DAILY Physical Examination Skin: warm/dry, no rash Eyes: sclerae normal Head: normocephalic, atraumatic Neck: trachea midline Respiratory/Chest: lungs clear, normal breath sounds, no respiratory distress Cardiovascular: regular rate, rhythm, no murmur Abdomen / GI: + pertinent finding (tenderness in the lower abdomen on palpation , no distention, no peritonitis or rigidity) Extremities: normal inspection Neurologic/Psych: alert, oriented x 3 Diagnosis PA CHEST RADIOGRAPH AND UPRIGHT AND SUPINE AP RADIOGRAPHS OF THE ABDOMEN CLINICAL HISTORY: Severe abdominal pain. COMPARISON STUDY: Chest radiograph and abdominal series and CT of the abdomen and pelvis August 12, 2016. FINDINGS: Lung volumes are normal. There is no consolidation. No pneumothorax or pleural effusion is present. Pulmonary vascularity is normal. Cardiac size is normal. Mediastinal contours are normal. There is no free air. There are cholecystectomy clips and post surgical findings within the lumbosacral spine. Scattered air-fluid levels are noted within small bowel and upright projections. Mild small bowel dilatation is present. IMPRESSION: 1. Mild small bowel dilatation suggestive of a small bowel obstruction. 2. No free air. 3. No acute cardiopulmonary findings. CT OF THE ABDOMEN AND PELVIS WITH CONTRAST CLINICAL HISTORY: Abdominal pain. Small bowel obstruction. COMPARISON STUDY: CT of the abdomen and pelvis August 12, 2016. TECHNIQUE: Following IV administration of 93 mL of Optiray-320, axial images of the abdomen and pelvis were obtained from the lung bases to the proximal femurs. Images were reviewed in the axial, sagittal, and coronal planes. IV contrast was administered without complication. CT DOSE: 431.86 mGycm FINDINGS: Visualized portions of the lower chest demonstrate minimal opacity within the right middle lobe which is partially imaged. There is no pneumatosis, free air or portal venous gas. There is no biliary ductal dilatation status post cholecystectomy. The liver, spleen, adrenal glands, right kidney and pancreas are normal. There is a 2 cm cyst within the upper pole the left kidney. Postsurgical findings at the lumbosacral junction are noted. The proximal to mid small bowel is mildly dilated and fluid-filled with a transition point within the right lower quadrant shown on image 335 of 471. Distal small bowel is decompressed. Small bowel loops measure up to 3.5 cm in caliber. Similar findings were shown on CT of August 12, 2016. The appendix is not identified. A 3.2 cm right ovarian cystic lesion is noted. A small amount of ascites is noted. No suspicious skeletal lesions are identified. IMPRESSION: 1. Findings consistent with a moderate grade partial small bowel obstruction with a transition point within the right lower quadrant. Similar findings were shown on CT of August 12, 2016. Small amount of associated ascites and mesenteric infiltration. No pneumatosis, free air or portal venous gas. 2. 3.2 cm right ovarian cyst. DIAGNOSIS Recurrent SBO - CT scan showing moderate partial small bowel obstruction with transition point in the right lower quadrant. - 4 episode in the past year. 3rd episode of SBO in the last 3 months. - Leukocytosis of 23.61 Plan of Treatment Plan to take patient back to operating room today for exploratory laparotomy, lysis of adhesions, and possible bowel resection. Patient and her was informed of procedure and risks, including bleeding , infection, injury to surrounding organs and tissues, cardiopulmonary complications, blood clots, including . Patient understood and informed consent obtained Admit to Med/Surg floor IV fluids NS @ 100 mls/hr IV Cipro/Flagyl NGT to Low intermittent suction IV morphine prn pain IV zofran NPO SCDs Dr. Figueroa has seen and examined patient, agrees with above.
[2016-08-30] MEDS: CIPROFLOXACIN 400MG / 200ML D5W IV STA ×2 (11:50→13:05)
[2016-08-30] MEDS ORDERED: CIPROFLOXACIN / D5W 400 MG in PREMIXED IN D5W 200 ML IV SCH (12:00)
--- NOTE | 2016-08-30 14:26 | EMERGENCY ROOM VISIT NOTE ---
History Report prepared by Radha: Ozzie Swan Under the Supervision of: Dr. Omar Vang D.O. First contact with patient: 08:43 Chief Complaint: ABDOMINAL PAIN Stated Complaint: ABD. PAIN Nursing Triage Summary: Triage note: pt reports abd pain nausea and vomitting since 0430 today. pt reports hx of partial bowel obstructions. History of Present Illness The patient is a 41 year old female who presents to the Emergency Room with complaints of intermittent abdominal pain beginning four hours ago. She also complains of nausea, and vomiting. She has a history of three partial small bowel obstructions and states that her current symptoms feel identical. The patient states that she woke up in the middle of the night with her pain. She describes her pain as a "squeezing" pain. Her last bowel movement was this morning. Pt denies headache, change in vision, fevers, chest pain, shortness of breath, pain with urination, and melena. This does feel exactly her previous bowel obstruction. Source of History: patient Onset: 4 hours ago Position: abdomen Quality: other ("squeezing") Timing: intermittent Associated Symptoms: + nausea, + vomiting, No fevers, No chest pain, No SOB , No urinary symptoms Review of Systems See HPI for pertinent positives & negatives. A total of 10 systems reviewed and were otherwise negative. Past Medical & Surgical Medical Problems: (1) Depression (2) Dyslipidemia (3) GERD (gastroesophageal reflux disease) (4) LORENA (obstructive sleep apnea) (5) SBO (small bowel obstruction) (6) Small bowel obstruction Surgical Problems: (1) H/O esophagogastroduodenoscopy (2) H/O wisdom tooth extraction (3) History of appendectomy (4) History of surgical removal of ganglion cyst (5) History of tonsillectomy (6) Hx of cholecystectomy (7) S/P lumbar fusion Family History FH: breast cancer SISTER Social History Smoking Status: Former Smoker Alcohol Use: none Drug Use: none Marital Status: Housing Status: lives with family Current/Historical Medications Scheduled Loratadine (Claritin), 10 MG PO DAILY Lubiprostone (Amitiza), 8 MCG PO DAILY Montelukast Sod (Montelukast Sodium), 10 MG PO HS Omeprazole (Prilosec), 20 MG PO DAILY Simvastatin (Zocor), 20 MG PO QPM Venlafaxine Hcl (Effexor Extended Rel), 150 MG PO DAILY Allergies Coded Allergies: BEE STING (Verified Allergy, Severe, ANAPHYLAXIS, 08/12/16) Amoxicillin (Verified Adverse Reaction, Mild, nausea/vomitting, 08/12/16) Erythromycin (Verified Adverse Reaction, Mild, nausea/vomitting, 08/12/16) Physical Exam Vital Signs Date Time Temp Pulse Resp B/P (MAP) Pulse Ox O2 Delivery O2 Flow Rate FiO2 08/30/16 10:55 109 18 112/74 98 Room Air 08/30/16 10:49 98 Room Air 08/30/16 08:42 36.8 119 18 108/73 99 Room Air Physical Exam GENERAL: Sitting up in bed, disheveled, non-toxic, no acute distress EYE EXAM: normal conjunctiva OROPHARYNX: no exudate, no erythema, lips, buccal mucosa, and tongue normal and mucous membranes are moist NECK: supple, no nuchal rigidity, no adenopathy, non-tender LUNGS: Clear to auscultation. Normal chest wall mechanics HEART: no murmurs, S1 normal and S2 normal ABDOMEN: Tender to palpation in the epigastric region. normo-active bowel sounds , no masses, no rebound or guarding. BACK: Back is symmetrical on inspection and there is no deformity, no midline tenderness, no CVA tenderness. SKIN: no rashes and no bruising UPPER EXTREMITIES: upper extremities are grossly normal. LOWER EXTREMITIES: No pitting edema. NEURO EXAM: Normal sensorium, cranial nerves II-XII grossly intact, normal speech, no gross weakness of arms, no gross weakness of legs. Medical Decision & Procedures ER Provider Diagnostic Interpretation: Radiology results as stated below per my review and the radiologist's interpretation: PA CHEST RADIOGRAPH AND UPRIGHT AND SUPINE AP RADIOGRAPHS OF THE ABDOMEN FINDINGS: Lung volumes are normal. There is no consolidation. No pneumothorax or pleural effusion is present. Pulmonary vascularity is normal. Cardiac size is normal. Mediastinal contours are normal. There is no free air. There are cholecystectomy clips and post surgical findings within the lumbosacral spine. Scattered air-fluid levels are noted within small bowel and upright projections. Mild small bowel dilatation is present. IMPRESSION: 1. Mild small bowel dilatation suggestive of a small bowel obstruction. 2. No free air. 3. No acute cardiopulmonary findings. Electronically signed by: Dg Kimbrough M.D. CT OF THE ABDOMEN AND PELVIS WITH CONTRAST FINDINGS: Visualized portions of the lower chest demonstrate minimal opacity within the right middle lobe which is partially imaged. There is no pneumatosis, free air or portal venous gas. There is no biliary ductal dilatation status post cholecystectomy. The liver, spleen, adrenal glands, right kidney and pancreas are normal. There is a 2 cm cyst within the upper pole the left kidney. Postsurgical findings at the lumbosacral junction are noted. The proximal to mid small bowel is mildly dilated and fluid-filled with a transition point within the right lower quadrant shown on image 335 of [id number]. Distal small bowel is decompressed. Small bowel loops measure up to 3.5 cm in caliber. Similar findings were shown on CT of August 12, 2016. The appendix is not identified. A 3.2 cm right ovarian cystic lesion is noted. A small amount of ascites is noted. No suspicious skeletal lesions are identified. IMPRESSION: 1. Findings consistent with a moderate grade partial small bowel obstruction with a transition point within the right lower quadrant. Similar findings were shown on CT of August 12, 2016. Small amount of associated ascites and mesenteric infiltration. No pneumatosis, free air or portal venous gas. 2. 3.2 cm right ovarian cyst. Electronically signed by: Dg Kimbrough M.D. Laboratory Results 08/30/16 09:10 Red Blood Count 4.68, Mean Corpuscular Volume 91.2, Mean Corpuscular Hemoglobin 28.8, Mean Corpuscular Hemoglobin Concent 31.6, Mean Platelet Volume 9.5, Neutrophils (%) (Auto) 93.8, Lymphocytes (%) (Auto) 2.8, Monocytes (%) (Auto) 2.9, Eosinophils (%) (Auto) 0.0, Basophils (%) (Auto) 0.1, Neutrophils # (Auto) 22.16, Lymphocytes # (Auto) 0.65, Monocytes # (Auto) 0.68, Eosinophils # (Auto) 0.01, Basophils # (Auto) 0.02 08/30/16 09:10 Test 08/30/16 09:00 08/30/16 09:10 Urine Color DK YELLOW Urine Appearance TURBID (CLEAR) Urine pH 5.0 (4.5-7.5) Urine Specific [place] 1.025 (1.000-1.030) Urine Protein TRACE (NEG) Urine Glucose (UA) NEG (NEG) Urine Ketones TRACE (NEG) Urine Occult Blood NEG (NEG) Urine Nitrite NEG (NEG) Urine Bilirubin NEG (NEG) Urine Urobilinogen NEG (NEG) Urine Leukocyte Esterase SMALL (NEG) Urine WBC (Auto) 10-30 /hpf (0-5) Urine RBC (Auto) 0-4 /hpf (0-4) Urine Hyaline Casts (Auto) 1-5 /lpf (0-5) Urine Epithelial Cells (Auto) >30 /lpf (0-5) Urine Bacteria (Auto) NEG (NEG) Urine Crystals CALCIUM OXALATE (NONE Urine Test NEG (NEG) White Blood Count 23.61 K/uL (4.8-10.8) Red Blood Count 4.68 M/uL (4.2-5.4) Hemoglobin 13.5 g/dL (12.0-16.0) Hematocrit 42.7 % (37-47) Mean Corpuscular Volume 91.2 fL (80-100) Mean Corpuscular Hemoglobin 28.8 pg (25-34) Mean Corpuscular Hemoglobin Concent 31.6 g/dl (32-36) Platelet Count 316 K/uL (130-400) Mean Platelet Volume 9.5 fL (7.4-10.4) Neutrophils (%) (Auto) 93.8 % Lymphocytes (%) (Auto) 2.8 % Monocytes (%) (Auto) 2.9 % Eosinophils (%) (Auto) 0.0 % Basophils (%) (Auto) 0.1 % Neutrophils # (Auto) 22.16 K/uL (1.4-6.5) Lymphocytes # (Auto) 0.65 K/uL (1.2-3.4) Monocytes # (Auto) 0.68 K/uL (0.11-0.59) Eosinophils # (Auto) 0.01 K/uL (0-0.5) Basophils # (Auto) 0.02 K/uL (0-0.2) RDW Standard Deviation 43.1 fL (36.4-46.3) RDW Coefficient of Variation 12.9 % (11.5-14.5) Immature Granulocyte % (Auto) 0.4 % Immature Granulocyte # (Auto) 0.09 K/uL (0.00-0.02) Anion Gap 9.0 mmol/L (3-11) Est Creatinine Clear Calc Drug Dose 89.5 ml/min Estimated GFR () 123.0 Estimated GFR (Non- 106.1 BUN/Creatinine Ratio 12.7 (10-20) Calcium Level 8.9 mg/dl (8.5-10.1) Total Bilirubin 0.4 mg/dl (0.2-1) Direct Bilirubin 0.1 mg/dl (0-0.2) Aspartate Amino Transf (AST/SGOT) 11 U/L (15-37) Alanine Aminotransferase (ALT/SGPT) 16 U/L (12-78) Alkaline Phosphatase 71 U/L (45-117) Total Protein 7.1 gm/dl (6.4-8.2) Albumin 3.8 gm/dl (3.4-5.0) Lipase 177 U/L (73-393) Laboratory results per my review. Medications Administered Medications (Trade) Dose Ordered Sig/Toño Route Start Time Stop Time Status Last Admin Dose Admin Sodium Chloride 1,000 ml @ 999 mls/hr Q1H1M STAT IV 08/30/16 08:50 08/30/16 09:50 DC 08/30/16 09:20 999 MLS/HR Ondansetron HCl (Zofran Inj) 4 mg NOW STAT IV 08/30/16 08:50 08/30/16 08:53 DC 08/30/16 09:20 4 MG Morphine Sulfate (MoRPHine SULFATE INJ) 6 mg NOW STAT IV 08/30/16 08:50 08/30/16 08:53 DC 08/30/16 09:19 6 MG Morphine Sulfate (MoRPHine SULFATE INJ) 6 mg NOW STAT IV 08/30/16 10:52 08/30/16 10:53 DC 08/30/16 10:57 6 MG Ciprofloxacin/ Dextrose (Cipro / D5W) 400 mg NOW STAT IV 08/30/16 11:18 08/30/16 11:19 DC 08/30/16 13:05 400 MG Metronidazole (Flagyl / Nss) 500 mg NOW STAT IV 08/30/16 11:18 08/30/16 11:19 DC 08/30/16 11:50 500 MG Sodium Chloride 1,000 ml @ 100 mls/hr Q10H IV 08/30/16 11:30 09/29/16 11:29 08/30/16 13:15 100 MLS/HR ED Course ED COURSE: Vital signs were reviewed and showed tachycardia The patients medical record was reviewed The above diagnostic studies were performed and reviewed. ED treatments and interventions as stated above. 0846: The patient was evaluated in room B10. A complete history and physical examination was performed. 0850: Ordered Morphine Sulfate 6 mg IV, Zofran Inj 4 mg IV, Sodium Chloride 1000 ml @ 999 mls/hr IV. 1052: Ordered Morphine Sulfate 6 mg IV. 1100: Upon reevaluation, the patient is resting comfortably. I discussed my findings with the patient and she understands and agrees with the treatment plan. Based on the patients age, coexisting illnesses, exam and lab findings the decision to treat as an inpatient was made. The patient remained stable while under my care. The patient will be evaluated for further management. Medical Decision Differential diagnoses includes but is not limited to gastritis, peptic ulcer disease, GERD, gallbladder disease, pancreatitis, small bowel obstruction, acute coronary syndrome, pericarditis, ischemic bowel, irritable bowel disease, irritable bowel syndrome, appendicitis, diverticulitis, malignancy, hernia, urinary tract infection, torsion, /ectopic , perforation, trauma, infectious. Patient is a 41-year-old female who presents the ER for persistent nausea vomiting which started this morning. She does have a history of small bowel obstruction secondary to a previous appendectomy/cholecystectomy causing adhesions. Obstruction series shows an obvious small bowel obstruction. White count 23,000 which I favor secondary to the pain and vomiting. Patient was given IV narcotics along with Cipro and Flagyl. General surgery was consulted and patient was taken to the OR. Consults Time Called: 954 Consulting Physician: Sulema Gotti PA-C -General Surgery Returned Call: 09 Discussed the patient's case. 1050: I reviewed the patient's case with Sulema Gotti PA-C. She will evaluate the patient for further management. Impression Primary Impression: SBO (small bowel obstruction) Scribe Attestation The scribe's documentation has been prepared under my direction and personally reviewed by me in its entirety. I confirm that the note above accurately reflects all work, treatment, procedures, and medical decision making performed by me. Departure Information Dispostion Being Evaluated By Surgeon Nelly Alcocer PA-C (PCP) Patient Instructions My [facility]
[2016-08-30] MEDS ORDERED: SCOPOLAMINE 1.5 MG TDSY TD ONE ×2 (14:49→15:00)
[2016-08-30] MEDS ORDERED: MoRPHine SULFATE 10 MG/ML CARP/VIAL IV PRN (15:00)
[2016-08-30] MEDS ORDERED: EpHEDrine SULFATE INJ 50 MG/ML AMP IV PRN (15:00)
[2016-08-30] MEDS ORDERED: FENTANYL CITRATE INJ 50 MCG/1 ML 2 ML VIAL IV PRN (15:00)
[2016-08-30] MEDS ORDERED: ATROPINE SULFATE 0.1 MG/ML 5ML SYR IV PRN (15:00)
--- NOTE | 2016-08-30 15:21 | History & Physical Bridge Note ---
H&P Re-Evaluation Bridge Note: I have examined the patient, reviewed the History & Physical and in the interval since the performance of the History & Physical I have noted the following changes of clinical significance: No changes noted
[2016-08-30] MEDS ORDERED: CIPROFLOXACIN 400MG / 200ML D5W IV STA (15:22)
[2016-08-30] MEDS ORDERED: CLINDAMYCIN 600 MG/54 ML D5W IV ONE (15:32)
[2016-08-30] MEDS ORDERED: LIDOCAINE HCL 1% 20 ML VIAL ONE (15:40)
[2016-08-30] MEDS ORDERED: BACITRACIN OINT 15 GM TUBE ONE (15:40)
[2016-08-30] MEDS ORDERED: BUPIVACAINE 0.5 % 5 MG/1 ML MPF 30ML VIAL ONE (15:40)
[2016-08-30] MEDS ORDERED: VANCOMYCIN HCL 1000MG/20ML VIAL ONE (15:40)
[2016-08-30] MEDS ORDERED: METRONIDAZOLE 500MG / NSS IV ONE (15:45)
[2016-08-30] MEDS ORDERED: CIPROFLOXACIN 400MG / D5W IV ONE (15:45)
[2016-08-30] MEDS ORDERED: MIDAZOLAM HCL 1 MG/ML 2ML VIAL ONE (15:47)
[2016-08-30] MEDS ORDERED: FENTANYL CITRATE INJ 50 MCG/1 ML 2 ML VIAL ONE ×2 (15:47→18:28)
[2016-08-30] MEDS ORDERED: HYDROmorphone INJ 2 MG/ML SYR/VIAL ONE (15:47)
[2016-08-30] MEDS ORDERED: CLINDAMYCIN 600 MG/54 ML D5W IV SCH (16:00)
[2016-08-30] MEDS ORDERED: KETAMINE HCL INJ 50 MG/ML 10 ML VIAL ONE (17:40)
[2016-08-30] MEDS ORDERED: DEXAMETHASONE SOD INJ 4 MG/ML VIAL ONE (17:40)
[2016-08-30] MEDS ORDERED: LIDOCAINE HCL 2% 2 ML VIAL (20MG/ML) ONE (17:40)
[2016-08-30] MEDS ORDERED: PROPOFOL IV EMULSION 10 MG/ML 20 ML VIAL IV ONE (17:40)
[2016-08-30] MEDS ORDERED: ONDANSETRON INJ 2 MG/ML 2 ML VIAL ONE (17:40)
[2016-08-30] MEDS ORDERED: GLYCOPYRROLATE INJ 0.2 MG/ML VIAL ONE (17:41)
[2016-08-30] MEDS ORDERED: PHENYLEPHRINE HCL INJ 10 MG/ML VIAL ONE (17:41)
[2016-08-30] MEDS ORDERED: NEOSTIGMINE METHYLSULFATE 5 MG/5 ML SYR ONE (17:41)
--- NOTE | 2016-08-30 17:54 | [facility] Post Operative Brief Note ---
Immediate Operative Summary Operative Date Aug 30, 2016. Pre-Operative Diagnosis Recurrent Small bowel obstruction Post-Operative Diagnosis Adhesions Procedure(s) Performed Exploratory Laparotomy with Lysis of Adhesions, insertion of RADHIKA drain Surgeon Dr. Noy Figueroa Account Coordinator Surgeon(s) Urvashi Bowden PA-C Estimated Blood Loss 30mL Findings adhesion, small bowel obstruction, Fluids (cc crystalloids) 1800ml Specimens Microbiology 1. Abdominal Fluid for culture and sensitivity. Left room at 1641 with Bryce Ruelas. Drains RADHIKA X 1 Anesthesia General Complication(s) None Disposition Recovery Room / PACU
[2016-08-30] MEDS ORDERED: MoRPHine SULFATE 10 MG/ML CARP/VIAL ONE (18:27)
[2016-08-30] MEDS: D5NSS + 20MEQ KCL 1,000 ML IV SCH ×2 (18:30→19:44)
--- NOTE | 2016-08-30 19:13 | Anesthesiology Progress Note ---
Anesthesia Post Op Note Date & Time Aug 30, 2016 at 19:13 Vital Signs Pain Intensity: 3 Vital Signs Past 12 Hours Date Time Temp Pulse Resp B/P (MAP) Pulse Ox O2 Delivery O2 Flow Rate FiO2 08/30/16 18:55 36.5 95 18 110/60 97 Nasal Cannula 3 08/30/16 18:45 94 18 111/62 97 Nasal Cannula 3 08/30/16 18:35 97 18 124/69 100 Mask 10 08/30/16 18:25 102 18 123/76 100 Mask 10 08/30/16 18:15 37.1 109 18 113/70 100 Mask 10 08/30/16 13:25 Room Air 08/30/16 12:50 36.9 98 18 111/74 (86) 94 Room Air 08/30/16 12:36 94 18 124/75 95 Room Air 08/30/16 11:51 99 16 112/68 96 Room Air 08/30/16 10:55 109 18 112/74 98 Room Air 08/30/16 10:49 98 Room Air 08/30/16 08:42 36.8 119 18 108/73 99 Room Air Notes Mental Status: alert / awake / arousable, participated in evaluation Pt Amnestic to Procedure: Yes Nausea / Vomiting: adequately controlled Pain: adequately controlled Airway Patency, RR, SpO2: stable & adequate BP & HR: stable & adequate Hydration State: stable & adequate Anesthetic Complications: no major complications apparent
[2016-08-30] MEDS: MoRPHine SULFATE 2 MG/ML CARP IV PRN ×2 (19:44→23:26)
[2016-08-30] MEDS: PANTOprazole INJ 40 MG in SYRINGE 0 ML IV SCH (20:42)
--- NOTE | 2016-08-30 22:05 | Surgery Progress Note ---
Surgery Progress Note Date of Service Aug 30, 2016. Subjective + feeling well F/U S/P exp lap, lysis of adhesion, pt is doing fine, no C/O, RADHIKA 250 clear, Objective Vital Signs: Date Time Temp Pulse Resp B/P (MAP) Pulse Ox O2 Delivery O2 Flow Rate FiO2 08/30/16 21:10 37.0 85 20 97/65 (76) 98 Nasal Cannula 3.0 08/30/16 20:15 36.6 92 16 93/51 (65) 97 Nasal Cannula 3.0 08/30/16 19:49 36.9 89 20 100/64 (76) 98 Nasal Cannula 2.0 08/30/16 19:22 98 Nasal Cannula 3.0 08/30/16 19:10 Nasal Cannula 3.0 08/30/16 19:08 36.9 106 20 107/68 (81) 98 Nasal Cannula 3.0 08/30/16 18:55 36.5 95 18 110/60 97 Nasal Cannula 3 08/30/16 18:45 94 18 111/62 97 Nasal Cannula 3 08/30/16 18:35 97 18 124/69 100 Mask 10 08/30/16 18:25 102 18 123/76 100 Mask 10 08/30/16 18:15 37.1 109 18 113/70 100 Mask 10 08/30/16 13:25 Room Air 08/30/16 12:50 36.9 98 18 111/74 (86) 94 Room Air 08/30/16 12:36 94 18 124/75 95 Room Air 08/30/16 11:51 99 16 112/68 96 Room Air 08/30/16 10:55 109 18 112/74 98 Room Air 08/30/16 10:49 98 Room Air 08/30/16 08:42 36.8 119 18 108/73 99 Room Air General Appearance: WD/WN Head: normocephalic Neck: supple Respiratory/Chest: chest non-tender, lungs clear Cardiovascular: regular rate, rhythm, no edema, no gallop, no JVD Abdomen: normal bowel sounds, non distended, soft, + tenderness Incision(s): intact Extremities: normal range of motion Laboratory Results: Results Past 24 Hours Test 08/30/16 09:00 08/30/16 09:10 Range/Units Urine Color DK YELLOW Urine Appearance TURBID CLEAR Urine pH 5.0 4.5-7.5 Urine Specific [place] 1.025 1.000-1.030 Urine Protein TRACE NEG Urine Glucose (UA) NEG NEG Urine Ketones TRACE NEG Urine Occult Blood NEG NEG Urine Nitrite NEG NEG Urine Bilirubin NEG NEG Urine Urobilinogen NEG NEG Urine Leukocyte Esterase SMALL NEG Urine WBC (Auto) 10-30 0-5 /hpf Urine RBC (Auto) 0-4 0-4 /hpf Urine Hyaline Casts (Auto) 1-5 0-5 /lpf Urine Epithelial Cells (Auto) >30 0-5 /lpf Urine Bacteria (Auto) NEG NEG Urine Crystals CALCIUM OXALATE NONE PRSENT Urine Test NEG NEG White Blood Count 23.61 4.8-10.8 K/uL Red Blood Count 4.68 4.2-5.4 M/uL Hemoglobin 13.5 12.0-16.0 g/dL Hematocrit 42.7 37-47 % Mean Corpuscular Volume 91.2 80-100 fL Mean Corpuscular Hemoglobin 28.8 25-34 pg Mean Corpuscular Hemoglobin Concent 31.6 32-36 g/dl Platelet Count 316 130-400 K/uL Mean Platelet Volume 9.5 7.4-10.4 fL Neutrophils (%) (Auto) 93.8 % Lymphocytes (%) (Auto) 2.8 % Monocytes (%) (Auto) 2.9 % Eosinophils (%) (Auto) 0.0 % Basophils (%) (Auto) 0.1 % Neutrophils # (Auto) 22.16 1.4-6.5 K/uL Lymphocytes # (Auto) 0.65 1.2-3.4 K/uL Monocytes # (Auto) 0.68 0.11-0.59 K/uL Eosinophils # (Auto) 0.01 0-0.5 K/uL Basophils # (Auto) 0.02 0-0.2 K/uL RDW Standard Deviation 43.1 36.4-46.3 fL RDW Coefficient of Variation 12.9 11.5-14.5 % Immature Granulocyte % (Auto) 0.4 % Immature Granulocyte # (Auto) 0.09 0.00-0.02 K/uL Sodium Level 140 136-145 mmol/L Potassium Level 3.7 3.5-5.1 mmol/L Chloride Level 107 98-107 mmol/L Carbon Dioxide Level 24 21-32 mmol/L Anion Gap 9.0 3-11 mmol/L Blood Urea Nitrogen 9 7-18 mg/dl Creatinine 0.70 0.60-1.20 mg/dl Est Creatinine Clear Calc Drug Dose 89.5 ml/min Estimated GFR () 123.0 Estimated GFR (Non- 106.1 BUN/Creatinine Ratio 12.7 10-20 Random Glucose 137 70-99 mg/dl Calcium Level 8.9 8.5-10.1 mg/dl Total Bilirubin 0.4 0.2-1 mg/dl Direct Bilirubin 0.1 0-0.2 mg/dl Aspartate Amino Transf (AST/SGOT) 11 15-37 U/L Alanine Aminotransferase (ALT/SGPT) 16 12-78 U/L Alkaline Phosphatase 71 45-117 U/L Total Protein 7.1 6.4-8.2 gm/dl Albumin 3.8 3.4-5.0 gm/dl Lipase 177 73-393 U/L Microbiology Results 08/30/16 Urine Culture, Received Pending 08/30/16 Gram Stain - Final, Resulted 08/30/16 Bacterial Culture, Resulted Pending Assessment & Plan I update information about OR finding and the procedure pt had, pt understood, I answered all questions, repeat labs in am, will F/U
[2016-08-30] MEDS: CIPROFLOXACIN / D5W 400 MG in PREMIXED IN D5W 200 ML IV SCH (22:59)
[2016-08-30] MEDS: METRONIDAZOLE / NSS 500 MG in PREMIXED NSS 100 ML IV SCH (23:24)
[2016-08-31] VITALS (8 sets, daily range): BP systolic 100–118; BP diastolic 62–78; PULSE 68–84; TEMP 36.9–37.5; O2SAT 94–98
[2016-08-31] MEDS: MoRPHine SULFATE 2 MG/ML CARP IV PRN ×6 (02:37→19:55)
--- NOTE | 2016-08-31 04:13 | OPERATIVE REPORT ---
DATE OF OPERATION: 08/30/2016 PREOPERATIVE DIAGNOSIS: Small bowel obstruction, adhesions causing small bowel obstruction. POSTOPERATIVE DIAGNOSIS: Same. OPERATION: Exploratory laparotomy and lysis of adhesions. SURGEON: Noy Figueroa MD. ADVERTISING REP: GENIE Roger. ANESTHESIA: General. ESTIMATED BLOOD LOSS: 30 mL. INTRAVENOUS FLUIDS: 1800 mL. FINDINGS: Small-bowel obstruction caused by adhesion. COMPLICATIONS: None. INDICATIONS FOR THE PROCEDURE: This is a 41-year-old female who presented with small bowel obstruction 3 times in the past couple of months, and the patient had appendectomy about a couple years ago. Since then, patient had 3 times small-bowel obstruction, the last time small bowel obstruction admission to hospital was about 1 week ago, and today, the patient came back to hospital ER again, developed abdominal pain, nausea, vomiting. At this time, after I evaluated the patient, I decided to take the patient to the OR for exploratory laparotomy and possible bowel resection. I did talk to the patient about the benefit, risk, and alternate procedure. I indicated the risks may include but not limited to such as infection, bleeding, abscess, incisional hernia, may need more procedure in need of bowel resection, DVT, even and injury to bowel. The patient understands. She signed informed consent, and I answered all questions. DETAILS OF PROCEDURE: We brought the patient to the OR, put the patient in the supine position. The patient received SCD on bilateral legs to prevent DVT. Also, the patient received 600 mg of clindamycin IV for prophylactic antibiotic. The patient received general anesthesia without difficulty. The abdomen was prepped and draped in routine sterile fashion. After time out, I made a small midline incision and opened the fascia, opened peritoneum under direct vision. Once we gained entry into the abdomen, there is some ascites. We did send a culture of ascites. We suctioned all the ascites and then we found the patient had small bowel obstruction, caused by adhesion, so we took down all of the scar, adhesion, and the small bowel from 4th portion of duodenum to down connected to cecum. Once we took down all the adhesions and the colon that had air coming in and hemostasis obtained, then I put one RADHIKA drainage, 10 mm RADHIKA drainage, and fixed the RADHIKA on the skin using 3-0 nylon and closed the abdomen using #1 PDS continuous running and closed the fascia first and closed subcutaneous layer by using 2-0 Vicryl continuous running and closed skin by using staple, put the dressing on. The patient tolerated the procedure well. All the instrument, needle and sponge count correct x2 at the end of case. The patient was transferred to recovery room in stable condition. I attest to the content of the Intraoperative Record and any orders documented therein. Any exceptions are noted below. MTDD
[2016-08-31] MEDS: D5NSS + 20MEQ KCL 1,000 ML IV SCH ×3 (04:23→23:34)
[2016-08-31] MEDS: METRONIDAZOLE / NSS 500 MG in PREMIXED NSS 100 ML IV SCH ×3 (07:49→23:34)
[2016-08-31 08:39] LABS: BASO % 0.1 %; BASO ABS # 0.01 K/uL (0-0.2); COMPLETE YES; HEMATOCRIT 35.8 % (37-47); IG% 0.2 %; LYMPH % 7.1 %; LYMPH ABS # 0.87 K/uL (1.2-3.4); MEAN CELL VOLUME 94.7 fL (80-100); MEAN CORPUSCULAR HEMOGLOBIN 29.1 pg (25-34); MEAN CORPUSCULAR HGB CONC 30.7 g/dl (32-36); MEAN PLATELET VOLUME 9.6 fL (7.4-10.4); NEUT % 87.6 %; PLATELET COUNT 282 K/uL (130-400); RED BLOOD COUNT 3.78 M/uL (4.2-5.4); WHITE BLOOD COUNT 12.31 K/uL (4.8-10.8)
[2016-08-31] MEDS: PANTOprazole INJ 40 MG in SYRINGE 0 ML IV SCH ×2 (09:23→20:13)
[2016-08-31 09:30] LABS: BUN/CREATININE RATIO 6.8 (10-20); CALCIUM 7.8 mg/dl (8.5-10.1); CREATININE 0.61 mg/dl (0.60-1.20)
[2016-08-31] MEDS: CIPROFLOXACIN / D5W 400 MG in PREMIXED IN D5W 200 ML IV SCH ×2 (10:37→22:19)
--- NOTE | 2016-08-31 11:59 | Surgery Progress Note ---
Surgery Progress Note Date of Service Aug 31, 2016. Subjective Post OP Day: 1 + feeling well pt is doing better, no abdominal no nausea, no vomiting, RADHIKA clear fluid, Objective Vital Signs: Date Time Temp Pulse Resp B/P (MAP) Pulse Ox O2 Delivery O2 Flow Rate FiO2 08/31/16 11:52 37.5 77 16 110/68 (82) 96 Room Air 08/31/16 10:08 95 Room Air 08/31/16 08:11 37.1 68 17 118/78 (91) 95 Room Air 08/31/16 07:45 Room Air 08/31/16 04:30 94 Room Air 08/31/16 03:15 36.9 77 16 100/62 (75) 98 Nasal Cannula 2.0 08/30/16 23:21 96/60 (72) 08/30/16 23:21 Nasal Cannula 2.0 08/30/16 22:51 36.9 92 16 101/60 (74) 98 Nasal Cannula 2.0 08/30/16 22:10 37.1 98 16 96/61 (73) 97 Nasal Cannula 3.0 08/30/16 21:10 37.0 85 20 97/65 (76) 98 Nasal Cannula 3.0 08/30/16 20:15 36.6 92 16 93/51 (65) 97 Nasal Cannula 3.0 08/30/16 19:49 36.9 89 20 100/64 (76) 98 Nasal Cannula 2.0 08/30/16 19:22 98 Nasal Cannula 3.0 08/30/16 19:10 Nasal Cannula 3.0 08/30/16 19:08 36.9 106 20 107/68 (81) 98 Nasal Cannula 3.0 08/30/16 18:55 36.5 95 18 110/60 97 Nasal Cannula 3 08/30/16 18:45 94 18 111/62 97 Nasal Cannula 3 08/30/16 18:35 97 18 124/69 100 Mask 10 08/30/16 18:25 102 18 123/76 100 Mask 10 08/30/16 18:15 37.1 109 18 113/70 100 Mask 10 08/30/16 13:25 Room Air 08/30/16 12:50 36.9 98 18 111/74 (86) 94 Room Air 08/30/16 12:36 94 18 124/75 95 Room Air General Appearance: WD/WN, no apparent distress Head: normocephalic Neck: supple, no JVD Respiratory/Chest: chest non-tender, lungs clear Cardiovascular: regular rate, rhythm, no edema, no gallop, no JVD Abdomen: normal bowel sounds, non tender, non distended, soft Incision(s): clean, dry, intact, no erythema Extremities: normal range of motion, non-tender, normal inspection Laboratory Results: Results Past 24 Hours Test 08/31/16 07:46 Range/Units White Blood Count 12.31 4.8-10.8 K/uL Red Blood Count 3.78 4.2-5.4 M/uL Hemoglobin 11.0 12.0-16.0 g/dL Hematocrit 35.8 37-47 % Mean Corpuscular Volume 94.7 80-100 fL Mean Corpuscular Hemoglobin 29.1 25-34 pg Mean Corpuscular Hemoglobin Concent 30.7 32-36 g/dl Platelet Count 282 130-400 K/uL Mean Platelet Volume 9.6 7.4-10.4 fL Neutrophils (%) (Auto) 87.6 % Lymphocytes (%) (Auto) 7.1 % Monocytes (%) (Auto) 5.0 % Eosinophils (%) (Auto) 0.0 % Basophils (%) (Auto) 0.1 % Neutrophils # (Auto) 10.79 1.4-6.5 K/uL Lymphocytes # (Auto) 0.87 1.2-3.4 K/uL Monocytes # (Auto) 0.61 0.11-0.59 K/uL Eosinophils # (Auto) 0.00 0-0.5 K/uL Basophils # (Auto) 0.01 0-0.2 K/uL RDW Standard Deviation 45.7 36.4-46.3 fL RDW Coefficient of Variation 13.1 11.5-14.5 % Immature Granulocyte % (Auto) 0.2 % Immature Granulocyte # (Auto) 0.03 0.00-0.02 K/uL Sodium Level 144 136-145 mmol/L Potassium Level 4.0 3.5-5.1 mmol/L Chloride Level 108 98-107 mmol/L Carbon Dioxide Level 30 21-32 mmol/L Anion Gap 6.0 3-11 mmol/L Blood Urea Nitrogen 4 7-18 mg/dl Creatinine 0.61 0.60-1.20 mg/dl Est Creatinine Clear Calc Drug Dose 102.8 ml/min Estimated GFR () 128.7 Estimated GFR (Non- 111.0 BUN/Creatinine Ratio 6.8 10-20 Random Glucose 127 70-99 mg/dl Calcium Level 7.8 8.5-10.1 mg/dl Total Bilirubin 0.5 0.2-1 mg/dl Aspartate Amino Transf (AST/SGOT) 12 15-37 U/L Alanine Aminotransferase (ALT/SGPT) 15 12-78 U/L Alkaline Phosphatase 58 45-117 U/L Total Protein 5.4 6.4-8.2 gm/dl Albumin 2.7 3.4-5.0 gm/dl Globulin 2.7 2.5-4.0 gm/dl Albumin/Globulin Ratio 1.0 0.9-2 Assessment & Plan I update information about OR finding and the procedure pt had, pt understood, I answered all questions, repeat labs in am, will F/U 08/31/2016 pt is doing better, continue treatment, F/U, I update information about OR finding and the procedure pt had, pt understood, I answered all questions, repeat labs in am, will F/U
[2016-09-01] MEDS: MoRPHine SULFATE 2 MG/ML CARP IV PRN ×2 (01:37→07:32)
[2016-09-01 07:10] VITALS: BP 110/69; PULSE 98; TEMP 37.3; O2SAT 95
[2016-09-01] MEDS: METRONIDAZOLE / NSS 500 MG in PREMIXED NSS 100 ML IV SCH (07:31)
[2016-09-01] MEDS: PANTOprazole INJ 40 MG in SYRINGE 0 ML IV SCH ×2 (08:53→19:57)
--- NOTE | 2016-09-01 10:49 | Surgery Progress Note ---
Surgery Progress Note Date of Service Sep 01, 2016. Subjective Post OP Day: 3 + feeling well pt is doing better, no nausea, no vomiting, RADHIKA 50 ml, NG 200, not pass gas yet, Objective Vital Signs: Date Time Temp Pulse Resp B/P (MAP) Pulse Ox O2 Delivery O2 Flow Rate FiO2 09/01/16 07:45 Room Air 09/01/16 07:10 37.3 98 18 110/69 (83) 95 Room Air 08/31/16 23:25 Room Air 08/31/16 22:47 37.0 80 16 109/64 (79) 97 Room Air 08/31/16 15:19 37.5 84 16 104/68 (80) 97 Room Air 08/31/16 15:10 Room Air 08/31/16 12:04 37.0 08/31/16 11:52 37.5 77 16 110/68 (82) 96 Room Air General Appearance: WD/WN Head: normocephalic Neck: supple, no JVD Respiratory/Chest: chest non-tender, lungs clear Cardiovascular: regular rate, rhythm, no edema, no gallop, no JVD Abdomen: normal bowel sounds, non tender, non distended, soft Incision(s): clean, dry, intact Extremities: normal range of motion, non-tender, normal inspection Assessment & Plan I update information about OR finding and the procedure pt had, pt understood, I answered all questions, repeat labs in am, will F/U 08/31/2016 pt is doing better, continue treatment, F/U, 09/01/2016 doing fine, D/C NG tube OOB will F/U I update information about OR finding and the procedure pt had, pt understood, I answered all questions, repeat labs in am, will F/U 08/31/2016 pt is doing better, continue treatment, F/U,
[2016-09-01] MEDS: CIPROFLOXACIN / D5W 400 MG in PREMIXED IN D5W 200 ML IV SCH (11:00)
[2016-09-01] MEDS: D5NSS + 20MEQ KCL 1,000 ML IV SCH ×2 (11:07→19:56)
[2016-09-01 15:12] VITALS: BP 108/69; PULSE 86; TEMP 37.1; O2SAT 98
[2016-09-01 23:01] VITALS: BP 101/67; PULSE 83; TEMP 36.9; O2SAT 96
[2016-09-02] MEDS: D5NSS + 20MEQ KCL 1,000 ML IV SCH ×2 (05:48→15:38)
[2016-09-02 07:25] VITALS: BP 102/68; PULSE 96; TEMP 37.3; O2SAT 97
--- NOTE | 2016-09-02 07:52 | Anesthesiology Progress Note ---
Anesthesia Post Op Note Date & Time Sep 02, 2016 at 07:52 Vital Signs Vital Signs Past 12 Hours Date Time Temp Pulse Resp B/P (MAP) Pulse Ox O2 Delivery O2 Flow Rate FiO2 09/02/16 07:25 37.3 96 18 102/68 (79) 97 Room Air 09/01/16 23:15 Room Air 09/01/16 23:01 36.9 83 16 101/67 (78) 96 Room Air Notes Mental Status: alert / awake / arousable, participated in evaluation Pt Amnestic to Procedure: Yes Nausea / Vomiting: adequately controlled Pain: adequately controlled Airway Patency, RR, SpO2: stable & adequate BP & HR: stable & adequate Hydration State: stable & adequate Anesthetic Complications: no major complications apparent
[2016-09-02] MEDS: PANTOprazole INJ 40 MG in SYRINGE 0 ML IV SCH ×2 (08:35→20:36)
[2016-09-02] MEDS: MoRPHine SULFATE 2 MG/ML CARP IV PRN ×4 (10:41→21:16)
--- NOTE | 2016-09-02 10:42 | Surgery Progress Note ---
Surgery Progress Note Date of Service Sep 02, 2016. Subjective Post OP Day: 3 + feeling well pt is doing fine, no nausea, no vomiting, not pass gas yet, Objective Vital Signs: Date Time Temp Pulse Resp B/P (MAP) Pulse Ox O2 Delivery O2 Flow Rate FiO2 09/02/16 08:01 Room Air 09/02/16 07:25 37.3 96 18 102/68 (79) 97 Room Air 09/01/16 23:15 Room Air 09/01/16 23:01 36.9 83 16 101/67 (78) 96 Room Air 09/01/16 15:15 Room Air 09/01/16 15:12 37.1 86 16 108/69 (82) 98 Room Air General Appearance: WD/WN, no apparent distress Head: normocephalic Neck: supple, no adenopathy, no JVD Respiratory/Chest: chest non-tender, lungs clear Cardiovascular: regular rate, rhythm, no edema, no gallop, no JVD Abdomen: normal bowel sounds, non tender, non distended, soft Incision(s): clean, dry, intact Extremities: normal range of motion, non-tender, normal inspection Laboratory Results: Results Past 24 Hours Test 09/02/16 09:54 Range/Units Assessment & Plan I update information about OR finding and the procedure pt had, pt understood, I answered all questions, repeat labs in am, will F/U 08/31/2016 pt is doing better, continue treatment, F/U, 09/01/2016 doing fine, D/C NG tube OOB will F/U 09/02/2016 pt is doing fine, clear diet dulcolax 10 mg po x1 labs today, will F/u, clear liquids I update information about OR finding and the procedure pt had, pt understood, I answered all questions, repeat labs in am, will F/U 08/31/2016 pt is doing better, continue treatment, F/U, 09/01/2016 doing fine, D/C NG tube OOB will F/U
[2016-09-02] MEDS ORDERED: BISACODYL 5 MG TABEC PO ONE (10:45)
[2016-09-02 10:47] LABS: BASO % 0.1 %; BASO ABS # 0.01 K/uL (0-0.2); COMPLETE YES; EOS % 2.6 %; HEMATOCRIT 36.8 % (37-47); IG% 0.2 %; LYMPH % 14.6 %; LYMPH ABS # 1.18 K/uL (1.2-3.4); MEAN CELL VOLUME 93.6 fL (80-100); MEAN CORPUSCULAR HEMOGLOBIN 29.3 pg (25-34); MEAN CORPUSCULAR HGB CONC 31.3 g/dl (32-36); MEAN PLATELET VOLUME 9.3 fL (7.4-10.4); MONO % 5.7 %; NEUT % 76.8 %; PLATELET COUNT 243 K/uL (130-400); RED BLOOD COUNT 3.93 M/uL (4.2-5.4); WHITE BLOOD COUNT 8.07 K/uL (4.8-10.8)
[2016-09-02 11:15] LABS: CREATININE 0.63 mg/dl (0.60-1.20); POTASSIUM 3.8 mmol/L (3.5-5.1)
[2016-09-02 11:17] LABS: ALB/GLOB RATIO 0.9 (0.9-2); CALCIUM 8.5 mg/dl (8.5-10.1)
[2016-09-02 16:22] VITALS: BP 101/67; PULSE 80; TEMP 37.3; O2SAT 99
[2016-09-02 19:55] VITALS: BP 104/68; PULSE 72; TEMP 36.7; O2SAT 99
[2016-09-02 22:53] VITALS: BP 94/61; PULSE 84; TEMP 36.8; O2SAT 96
[2016-09-03] MEDS: D5NSS + 20MEQ KCL 1,000 ML IV SCH ×2 (01:48→11:51)
[2016-09-03 08:14] VITALS: BP 108/72; PULSE 90; TEMP 37.1; O2SAT 98
[2016-09-03 08:17] VITALS: O2SAT 98
[2016-09-03] MEDS: PANTOprazole INJ 40 MG in SYRINGE 0 ML IV SCH (09:08)
[2016-09-03] MEDS ORDERED: OXYC-57 PO (12:43)
--- NOTE | 2016-09-03 12:49 | Discharge Instructions ---
Discharge Instructions Date of Service Sep 03, 2016. Admission Reason for Admission: Small Bowel Obstruction Discharge Discharge Diagnosis / Problem: Small bowel resection Discharge Goals Goal(s): Decrease discomfort, Improve function Activity Recommendations Activity Limitations: as noted below No heavy lifting over 10 pounds for 6 weeks No strenuous activity until cleared to do so Walking and light activity is encouraged No driving while taking narcotic pain medication Instructions / Follow-Up Instructions / Follow-Up You may shower in 2 days, sponge bath in meantime No submerging incision underwater for 2 weeks You may remove dressings in 2 days and then shower Follow-up with Dr. Figueroa in 1 week , please call office at [phone] to make an appointment You will have your sean removed in the office. Current Hospital Diet Patient's current hospital diet: Full Liquid Diet Discharge Diet Recommended Diet: Full Liquid Diet (advance diet as tolerated) Procedures Procedures Performed: Exploratory Laparotomy with Lysis of Adhesions, insertion of RADHIKA drain Pending Studies Studies pending at discharge: no Medical Emergencies . Who to Call and When: Medical Emergencies: If at any time you feel your situation is an emergency, please call 911 immediately. . Non-Emergent Contact Non-Emergency issues call your: Primary Care Provider, Surgeon Call Non-Emergent contact if: you have a fever, temperature is above 101.5, your pain is not controlled, your pain is worsening, wound has increased drainage, wound has increased redness, wound has increased pain . "Provider Documentation" section prepared by Sulema Gotti. . VTE Core Measure Inpt VTE Proph given/why not?: SCD's [place] Drug Monitoring Program Search Results: patient reviewed within database, no issues identified
--- NOTE | 2016-09-03 13:01 | Surgery Progress Note ---
Surgery Progress Note Date of Service Sep 03, 2016. Subjective Post OP Day: 4 (s/p exploratory laparotomy, lysis of adhesions) + feeling well, + ambulating, + bowel movement, + flatus, + pain controlled, + diet (tolerated clear liquids), No complaints, No nausea, No vomiting Objective Vital Signs: Date Time Temp Pulse Resp B/P (MAP) Pulse Ox O2 Delivery O2 Flow Rate FiO2 09/03/16 08:17 98 Room Air 09/03/16 08:14 37.1 90 18 108/72 (84) 98 Room Air 09/03/16 07:15 Room Air 09/02/16 23:59 Room Air 09/02/16 22:53 36.8 84 18 94/61 (72) 96 Room Air 09/02/16 20:35 Room Air 09/02/16 19:55 36.7 72 16 104/68 (80) 99 Room Air 09/02/16 16:22 37.3 80 18 101/67 (78) 99 Room Air Physical Exam: JOAQUÍN drainage (serous) General Appearance: WD/WN, no apparent distress Head: normocephalic, atraumatic Neck: trachea midline Respiratory/Chest: no respiratory distress, no accessory muscle use Abdomen: non tender, non distended, soft, + pertinent finding (sean intact) Incision(s): clean, dry, intact, no erythema Assessment & Plan POD # 4 s/p exploratory laparotomy and lysis of adhesions - vitals stable - +bowel function - tolerating clear liquids - minimal pain - ambulating and urinating Plan: Discharge home today will advance to full liquids and d/c joaquín drain prior to discharge continue pain management prn Will follow-up with Dr. Figueroa 1 week Discharge instructions given Dr. Figueroa has seen and examined patient, agrees with assessment and plan.
[2016-09-03 13:54] VITALS: BP 108/72; PULSE 90; TEMP 37.1; O2SAT 98
--- NOTE | 2016-09-03 16:35 | Discharge Summary ---
Discharge Summary Dates Admission Date / Time: Aug 30, 2016 at 11:35 Discharge Date: Sep 03, 2016 Dispostion / Condition Discharge Disposition: Home Condition at Discharge: Good Principal Diagnosis (1) Small bowel obstruction Consultations / Procedures Consultations: None Procedures: Exploratory laparotomy, lysis of adhesions, and placement of RADHIKA drain Pending Studies / Follow-Up None Medication Reconciliation New Medications: Oxycodone/Acetaminophen 5MG/325MG (Percocet 5MG/325MG) Tab 1-2 TABLETS PO Q6H PRN for Pain, #24 TAB Continued Medications: Loratadine (Claritin) 10 Mg Tab 10 MG PO DAILY Lubiprostone (Amitiza) 8 Mcg Cap 8 MCG PO DAILY, CAP Montelukast Sod (Montelukast Sodium) 10 Mg Tab 10 MG PO HS Omeprazole (Prilosec) 20 Mg Capcr 20 MG PO DAILY Simvastatin (Zocor) 20 Mg Tab 20 MG PO QPM, TAB Venlafaxine Hcl (Effexor Extended Rel) 150 Mg Cap 150 MG PO DAILY, CAP Admission HPI Per the Admitting provider: Yari is a pleasant 41 year-old female who presented to emergency room on 08/30/2016 with complaint of generalized abdominal pain, nausea, and vomiting. Yari was just recently admitted 2 weeks ago for partial SBO which resolved with conservative measures. This is her 3rd episode of small bowel obstruction in the past 3 months and overall 4th episode since last year. She had a her appendix removed in October of 2014 which was thought to be due to acute appendicitis however pathology showed no appendicitis and she had an adhesive band which was removed in the RLQ at that time. She has a right midline transverse laparotomy scar from that surgical procedure. She has had a colonoscopy since her May admission to rule out inflammatory bowel disease given findings of right sided colitis which was normal. At this point she would like to have surgical removal of adhesions. Hospital Course (1) Small bowel obstruction Patient was taken to operating room for exploratory laparotomy, lysis of adhesions, and possible bowel resection. She tolerated procedure well and was transferred to PACU and then Med/Surg floor in stable condition. IV fluids, IV Morphine, IV Zofran and Protonix were ordered. She was kept NPO and NGT to low intermittent suction. POD # 1 she was feeling better, pain controlled however no bowel function. RADHIKA drain had 250 cc from prior shift. POD # 2 continued to improve, RADHIKA drain 50 cc from last shift, 200 from NGT, and patient still did not have return of bowel function. The NGT was removed and recommended out of bed to chair and ambulation. POD # 3 patient was started on clear liquids and dulcolax suppository one time. POD # 4 patient was passing flatus and had numerous bowel movements. Patient was stable and wanted to go home. She was discharged on POD # 4 in stable condition and the RADHIKA drain was removed prior to leaving hospital . Overall hospital course was uneventful. Discharge Instructions as given to patient Copies To Primary Care Provider: Nelly Davis PA-C.
[2017-01-13] MEDS ORDERED: CIPR1TAB10 PO (15:15)
[2017-01-13] MEDS ORDERED: LACTCHW3 PO (15:15)
[2017-01-13] MEDS ORDERED: METR-163 PO (15:15)
== END 2016-09-03 14:26 | disposition home or self-care (01) | DRG 336 ==
LOC: C.EDB 08:41 → C.MSN 11:35 → ENRESERV 12:08
PROVIDERS: ADMIT Surgery; ATTEND Surgery
PROC: 0DN80ZZ Release Small Intestine, Open Approach (ICD-10-PCS; principal; 2016-08-30 12:30)
PROC: 0D9W0ZX Drainage of Peritoneum, Open Approach, Diagnostic (ICD-10-PCS; principal; 2016-08-30 12:30)
DX: K56.60 Unspecified intestinal obstruction (principal); R18.8 Other ascites; F32.9 Major depressive disorder, single episode, unspecified; E78.5 Hyperlipidemia, unspecified; K21.9 Gastro-esophageal reflux disease without esophagitis; G47.33 Obstructive sleep apnea (adult) (pediatric); Z98.1 Arthrodesis status; Z87.891 Personal history of nicotine dependence; Z98.890 Other specified postprocedural states

== ENCOUNTER 2017-01-10 17:09 | Inpatient (IN) | payer BC ==
[~2017-01-10] VITALS: Ht 162.6 cm; Wt 68.0 kg
[~2017-01-10 17:09] MED LIST changes: +OXYC-57 PO
[2017-01-10] MEDS ORDERED: PANT40TA PO (17:24)
[2017-01-10] MEDS ORDERED: ONDANSETRON INJ 2 MG/ML 2 ML VIAL IV STA (17:46)
[2017-01-10] MEDS ORDERED: HYDROmorphone INJ 1 MG/ML SYR IV STA (17:46)
[2017-01-10] MEDS ORDERED: SODIUM CHLORIDE 0.9% 1000ML 1,000 ML IV STA (17:46)
[2017-01-10] MEDS ORDERED: OPTIRAY 320 IV PRN (18:00)
--- NOTE | 2017-01-10 18:05 | EMERGENCY ROOM VISIT NOTE ---
History Report prepared by Radha: Tonya Villalobos Under the Supervision of: Dr. Stu Valdez M.D. First contact with patient: 17:20 Chief Complaint: ABDOMINAL PAIN Stated Complaint: ABDOMINAL PAIN History of Present Illness The patient is a 41 year old female who presents to the Emergency Room with complaints of persistent left lower quadrant abdominal pain that began several hours ago. She currently rates her discomfort as an 8/10 in severity. The patient states that she has a history of bowel obstructions and notes a surgery for abdominal adhesions in August. She states that she started with a sharp left lower quadrant abdominal pain today and then reports diffuse abdominal cramping. The patient states that movement worsens her pain. She states that her pain began thirty minutes after eating. The patient states that her last normal menstrual was at the end of November. She states that she had similar symptoms last weekend. The patient states that she took Percocet today that provided minimal relief. She denies any fever, nausea, or vomiting. Source of History: patient Onset: several hours ago Position: abdomen (LLQ) Symptom Intensity: 8/10 Quality: sharp, cramping Timing: other (persistent) Modifying Factors (Relieving): other (Percocet) Associated Symptoms: No fevers, No nausea, No vomiting Review of Systems See HPI for pertinent positives & negatives. A total of 10 systems reviewed and were otherwise negative. Past Medical & Surgical Medical Problems: (1) Depression (2) Dyslipidemia (3) GERD (gastroesophageal reflux disease) (4) LORENA (obstructive sleep apnea) (5) SBO (small bowel obstruction) (6) Small bowel obstruction Surgical Problems: (1) H/O esophagogastroduodenoscopy (2) H/O wisdom tooth extraction (3) History of appendectomy (4) History of surgical removal of ganglion cyst (5) History of tonsillectomy (6) Hx of cholecystectomy (7) S/P lumbar fusion Family History FH: breast cancer SISTER Social History Smoking Status: Never Smoker Alcohol Use: none Drug Use: none Marital Status: Housing Status: lives with family Current/Historical Medications Scheduled Loratadine (Claritin), 10 MG PO DAILY Lubiprostone (Amitiza), 16 MCG PO QPM Montelukast Sod (Montelukast Sodium), 10 MG PO HS Pantoprazole (Protonix), 40 MG PO HS Simvastatin (Zocor), 20 MG PO QPM Venlafaxine Hcl (Effexor Extended Rel), 225 MG PO DAILY Scheduled PRN Oxycodone/Acetaminophen 5MG/325MG (Percocet 5MG/325MG), 1-2 TABLETS PO Q6H PRN for Pain Allergies Coded Allergies: BEE STING (Verified Allergy, Severe, ANAPHYLAXIS, 01/10/17) Amoxicillin (Verified Adverse Reaction, Mild, nausea/vomitting, 01/10/17) Erythromycin (Verified Adverse Reaction, Mild, nausea/vomitting, 01/10/17) Physical Exam Vital Signs Date Time Temp Pulse Resp B/P (MAP) Pulse Ox O2 Delivery O2 Flow Rate FiO2 01/10/17 18:54 93 18 119/81 98 Room Air 01/10/17 17:33 99 18 127/73 97 Room Air 01/10/17 17:16 37.1 120 18 111/81 100 Room Air Physical Exam GENERAL: Patient is very uncomfortable appearing and in moderate distress. HEENT: No acute trauma, normocephalic atraumatic, mucous membranes moist, no nasal congestion, no scleral icterus. NECK: No stridor, no adenopathy, no meningismus, trachea is midline. LUNGS: No dyspnea. Clear to auscultation and equal bilaterally. No wheeze, no rhonchi. HEART: Regular rate and rhythm. No murmurs, rubs, gallops appreciated. ABDOMEN: Soft, hyperactive bowel sounds in the upper abdomen, left lower quadrant tenderness to palpation, no masses appreciated, no peritonitis. BACK: No midline tenderness, no CVA tenderness EXTREMITIES: Normal motion all extremities, no cyanosis, no edema. NEUROLOGIC: Alert and oriented, no acute motor or sensory deficits, no focal weakness, cranial nerves grossly intact. SKIN: No rash, no jaundice, no diaphoresis. Medical Decision & Procedures Laboratory Results 01/10/17 18:30 Red Blood Count 4.48, Mean Corpuscular Volume 87.9, Mean Corpuscular Hemoglobin 28.6, Mean Corpuscular Hemoglobin Concent 32.5, Mean Platelet Volume 9.6, Neutrophils (%) (Auto) 85.1, Lymphocytes (%) (Auto) 9.2, Monocytes (%) (Auto) 5.1, Eosinophils (%) (Auto) 0.1, Basophils (%) (Auto) 0.2, Neutrophils # (Auto) 11.94, Lymphocytes # (Auto) 1.29, Monocytes # (Auto) 0.72, Eosinophils # (Auto) 0.01, Basophils # (Auto) 0.03 01/10/17 18:30 Test 01/10/17 18:30 01/10/17 18:44 01/10/17 18:50 White Blood Count 14.03 K/uL (4.8-10.8) Red Blood Count 4.48 M/uL (4.2-5.4) Hemoglobin 12.8 g/dL (12.0-16.0) Hematocrit 39.4 % (37-47) Mean Corpuscular Volume 87.9 fL (80-100) Mean Corpuscular Hemoglobin 28.6 pg (25-34) Mean Corpuscular Hemoglobin Concent 32.5 g/dl (32-36) Platelet Count 254 K/uL (130-400) Mean Platelet Volume 9.6 fL (7.4-10.4) Neutrophils (%) (Auto) 85.1 % Lymphocytes (%) (Auto) 9.2 % Monocytes (%) (Auto) 5.1 % Eosinophils (%) (Auto) 0.1 % Basophils (%) (Auto) 0.2 % Neutrophils # (Auto) 11.94 K/uL (1.4-6.5) Lymphocytes # (Auto) 1.29 K/uL (1.2-3.4) Monocytes # (Auto) 0.72 K/uL (0.11-0.59) Eosinophils # (Auto) 0.01 K/uL (0-0.5) Basophils # (Auto) 0.03 K/uL (0-0.2) RDW Standard Deviation 43.2 fL (36.4-46.3) RDW Coefficient of Variation 13.4 % (11.5-14.5) Immature Granulocyte % (Auto) 0.3 % Immature Granulocyte # (Auto) 0.04 K/uL (0.00-0.02) Est Creatinine Clear Calc Drug Dose 95.5 ml/min Estimated GFR () 118.9 Estimated GFR (Non- 102.6 BUN/Creatinine Ratio 9.1 (10-20) Calcium Level 8.5 mg/dl (8.5-10.1) Total Bilirubin 0.3 mg/dl (0.2-1) Direct Bilirubin < 0.1 mg/dl (0-0.2) Aspartate Amino Transf (AST/SGOT) 16 U/L (15-37) Alanine Aminotransferase (ALT/SGPT) 17 U/L (12-78) Alkaline Phosphatase 81 U/L (45-117) Total Protein 6.6 gm/dl (6.4-8.2) Albumin 3.4 gm/dl (3.4-5.0) Lipase 150 U/L (73-393) Human Chorionic Gonadotropin, Qual NEG (NEG) Bedside Hemoglobin 12.6 g/dl (12.0-16.0) Bedside Hematocrit 37 % (37-47) Bedside Sodium 139 mEq/L (135-144) Bedside Potassium 3.9 mEq/L (3.3-5.0) Bedside Chloride 104 mEq/L (101-112) Bedside Total CO2 22 mEq/l (24-31) Anion Gap 18.0 mmol/L (16-25) Bedside Blood Urea Nitrogen 5 mg/dl (7-18) Bedside Creatinine 0.7 mg/dl (0.6-1.3) Bedside Glucose (other) 118 mg/dl (70-99) Bedside Ionized Calcium (Larry) 1.03 mmol/l (1.12-1.32) Urine Color DK YELLOW Urine Appearance CLEAR (CLEAR) Urine pH 5.0 (4.5-7.5) Urine Specific [place] 1.024 (1.000-1.030) Urine Protein NEG (NEG) Urine Glucose (UA) NEG (NEG) Urine Ketones TRACE (NEG) Urine Occult Blood TRACE (NEG) Urine Nitrite NEG (NEG) Urine Bilirubin NEG (NEG) Urine Urobilinogen NEG (NEG) Urine Leukocyte Esterase TRACE (NEG) Urine WBC (Auto) 10-30 /hpf (0-5) Urine RBC (Auto) 5-10 /hpf (0-4) Urine Hyaline Casts (Auto) 1-5 /lpf (0-5) Urine Epithelial Cells (Auto) >30 /lpf (0-5) Urine Bacteria (Auto) NEG (NEG) Urine Test NEG (NEG) Laboratory results as reviewed by me. Medications Administered Medications (Trade) Dose Ordered Sig/Toño Route Start Time Stop Time Status Last Admin Dose Admin Sodium Chloride 1,000 ml @ 999 mls/hr Q1H1M STAT IV 01/10/17 17:46 01/10/17 18:46 DC 01/10/17 18:51 999 MLS/HR Hydromorphone HCl (Dilaudid Inj) 1 mg NOW STAT IV 01/10/17 17:46 01/10/17 17:53 DC 01/10/17 18:52 1 MG Ondansetron HCl (Zofran Inj) 4 mg NOW STAT IV 01/10/17 17:46 01/10/17 17:53 DC 01/10/17 18:51 4 MG Lorazepam (Ativan Inj) 1 mg NOW STAT IV 01/10/17 19:38 01/10/17 19:39 DC 01/10/17 19:45 1 MG ED Course 1723: The patient was evaluated in room B7. A complete history and physical exam was performed by Dr. Swan, [employer]. 1746: Ordered Zofran Inj 4 mg IV, Dilaudid Inj 1 mg IV, Sodium Chloride 1000 ml @ 999 mls/hr IV. 1748: The patient was evaluated in room B7. A complete history and physical exam was performed. Medical Decision Differential: SBO, Appendicitis, Diverticulitis, UTI, Pyelonephritis, Renal Colic, amongst other pathologies entertained. 41 yr old female with long history of SBO issues s/p back surgery. She is well appearing other than hyperactive bowel sounds and uncomfortable. No peritonitis with abdominal exam and with single dose pain/nausea meds she is vastly improved. With previous issues and now SBO went ahead with NGTube. Reviewed with surgeon who will see in consult with hospitalist bringing her in. WBC mildly elevated which is unremarkable for her and likely secondary to acute pain she was having. She is not septic and feeling much improved with above. Medication Reconcilliation Current Medication List: was personally reviewed by me Impression Primary Impression: Small bowel obstruction Scribe Attestation The scribe's documentation has been prepared under my direction and personally reviewed by me in its entirety. I confirm that the note above accurately reflects all work, treatment, procedures, and medical decision making performed by me. Departure Information Referrals No Doctor, Assigned (PCP) Patient Instructions [facility]
--- NOTE | 2017-01-10 18:45 | EMERGENCY ROOM VISIT NOTE ---
History First contact with patient: 17:21 Chief Complaint: ABDOMINAL PAIN Stated Complaint: ABDOMINAL PAIN Nursing Triage Summary: Pt states she has a hx of abd blockages, today felt a sharp pain left lower abd , c/o she is having waves of pain, decreased appetite, positive nausea. Pt a/ox3, lungs CTA, pt states abd bloated, positive heatrburnsoft, poitive BS, old abd mid line scar noted from abd surgery this past August, positive BS. History of Present Illness The patient is a 41 year old female who presents to the Emergency Room with complaints of abdominal pain -Pt has a PMHx of bowel obstruction. Pt states 7 episodes since 2014. -Pt relates past obstructions to adhesions suffered from 2 back surgeries in 2007 -Pt describes pain beginning this morning as sharp LLQ progressing throughout the day to diffused colicky pain 9/10 intensity. -Pt describes decreased appetite, and colicky pain 30 minutes after attempting to eat breakfast. -Pt says that over the past few days, she has had normal bowel movements, although she does report loose bowel movements at baseline. -Pt denies blood in her stool. -Pt denies fever. -Pt says that her LMP was at the end of November. Review of Systems Negative except for above Past Medical/Surgical History Medical Problems: (1) Depression (2) Dyslipidemia (3) GERD (gastroesophageal reflux disease) (4) LORENA (obstructive sleep apnea) (5) SBO (small bowel obstruction) (6) Small bowel obstruction Surgical Problems: (1) H/O esophagogastroduodenoscopy (2) H/O wisdom tooth extraction (3) History of appendectomy (4) History of surgical removal of ganglion cyst (5) History of tonsillectomy (6) Hx of cholecystectomy (7) S/P lumbar fusion Family History FH: breast cancer SISTER Social History Smoking Status: Never Smoker Alcohol Use: none Drug Use: none Marital Status: Housing Status: lives with family Current/Historical Medications Scheduled Loratadine (Claritin), 10 MG PO DAILY Lubiprostone (Amitiza), 16 MCG PO QPM Montelukast Sod (Montelukast Sodium), 10 MG PO HS Pantoprazole (Protonix), 40 MG PO HS Simvastatin (Zocor), 20 MG PO QPM Venlafaxine Hcl (Effexor Extended Rel), 225 MG PO DAILY Scheduled PRN Oxycodone/Acetaminophen 5MG/325MG (Percocet 5MG/325MG), 1-2 TABLETS PO Q6H PRN for Pain Allergies Coded Allergies: BEE STING (Verified Allergy, Severe, ANAPHYLAXIS, 01/10/17) Amoxicillin (Verified Adverse Reaction, Mild, nausea/vomitting, 01/10/17) Erythromycin (Verified Adverse Reaction, Mild, nausea/vomitting, 01/10/17) Physical Exam Vital Signs Date Time Temp Pulse Resp B/P (MAP) Pulse Ox O2 Delivery O2 Flow Rate FiO2 01/10/17 20:32 Room Air 01/10/17 18:54 93 18 119/81 98 Room Air 01/10/17 17:33 99 18 127/73 97 Room Air 01/10/17 17:16 37.1 120 18 111/81 100 Room Air Physical Exam Cardio--nl S1 S2, no m/r/g, no peripheral edema Resp--CTAB, no accessory muscle use, no wheeze/rhonchi/rales GI--Diffused tenderness to light and deep palpation. No palpable mass. Surgical scars appreciated. Medical Decision & Procedures Laboratory Results 01/10/17 18:30 Red Blood Count 4.48, Mean Corpuscular Volume 87.9, Mean Corpuscular Hemoglobin 28.6, Mean Corpuscular Hemoglobin Concent 32.5, Mean Platelet Volume 9.6, Neutrophils (%) (Auto) 85.1, Lymphocytes (%) (Auto) 9.2, Monocytes (%) (Auto) 5.1, Eosinophils (%) (Auto) 0.1, Basophils (%) (Auto) 0.2, Neutrophils # (Auto) 11.94, Lymphocytes # (Auto) 1.29, Monocytes # (Auto) 0.72, Eosinophils # (Auto) 0.01, Basophils # (Auto) 0.03 01/10/17 18:30 Test 01/10/17 18:30 01/10/17 18:44 01/10/17 18:50 White Blood Count 14.03 K/uL (4.8-10.8) Red Blood Count 4.48 M/uL (4.2-5.4) Hemoglobin 12.8 g/dL (12.0-16.0) Hematocrit 39.4 % (37-47) Mean Corpuscular Volume 87.9 fL (80-100) Mean Corpuscular Hemoglobin 28.6 pg (25-34) Mean Corpuscular Hemoglobin Concent 32.5 g/dl (32-36) Platelet Count 254 K/uL (130-400) Mean Platelet Volume 9.6 fL (7.4-10.4) Neutrophils (%) (Auto) 85.1 % Lymphocytes (%) (Auto) 9.2 % Monocytes (%) (Auto) 5.1 % Eosinophils (%) (Auto) 0.1 % Basophils (%) (Auto) 0.2 % Neutrophils # (Auto) 11.94 K/uL (1.4-6.5) Lymphocytes # (Auto) 1.29 K/uL (1.2-3.4) Monocytes # (Auto) 0.72 K/uL (0.11-0.59) Eosinophils # (Auto) 0.01 K/uL (0-0.5) Basophils # (Auto) 0.03 K/uL (0-0.2) RDW Standard Deviation 43.2 fL (36.4-46.3) RDW Coefficient of Variation 13.4 % (11.5-14.5) Immature Granulocyte % (Auto) 0.3 % Immature Granulocyte # (Auto) 0.04 K/uL (0.00-0.02) Est Creatinine Clear Calc Drug Dose 95.5 ml/min Estimated GFR () 118.9 Estimated GFR (Non- 102.6 BUN/Creatinine Ratio 9.1 (10-20) Calcium Level 8.5 mg/dl (8.5-10.1) Total Bilirubin 0.3 mg/dl (0.2-1) Direct Bilirubin < 0.1 mg/dl (0-0.2) Aspartate Amino Transf (AST/SGOT) 16 U/L (15-37) Alanine Aminotransferase (ALT/SGPT) 17 U/L (12-78) Alkaline Phosphatase 81 U/L (45-117) Total Protein 6.6 gm/dl (6.4-8.2) Albumin 3.4 gm/dl (3.4-5.0) Lipase 150 U/L (73-393) Human Chorionic Gonadotropin, Qual NEG (NEG) Bedside Hemoglobin 12.6 g/dl (12.0-16.0) Bedside Hematocrit 37 % (37-47) Bedside Sodium 139 mEq/L (135-144) Bedside Potassium 3.9 mEq/L (3.3-5.0) Bedside Chloride 104 mEq/L (101-112) Bedside Total CO2 22 mEq/l (24-31) Anion Gap 18.0 mmol/L (16-25) Bedside Blood Urea Nitrogen 5 mg/dl (7-18) Bedside Creatinine 0.7 mg/dl (0.6-1.3) Bedside Glucose (other) 118 mg/dl (70-99) Bedside Ionized Calcium (Larry) 1.03 mmol/l (1.12-1.32) Urine Color DK YELLOW Urine Appearance CLEAR (CLEAR) Urine pH 5.0 (4.5-7.5) Urine Specific [place] 1.024 (1.000-1.030) Urine Protein NEG (NEG) Urine Glucose (UA) NEG (NEG) Urine Ketones TRACE (NEG) Urine Occult Blood TRACE (NEG) Urine Nitrite NEG (NEG) Urine Bilirubin NEG (NEG) Urine Urobilinogen NEG (NEG) Urine Leukocyte Esterase TRACE (NEG) Urine WBC (Auto) 10-30 /hpf (0-5) Urine RBC (Auto) 5-10 /hpf (0-4) Urine Hyaline Casts (Auto) 1-5 /lpf (0-5) Urine Epithelial Cells (Auto) >30 /lpf (0-5) Urine Bacteria (Auto) NEG (NEG) Urine Test NEG (NEG) Medications Administered Medications (Trade) Dose Ordered Sig/Toño Route Start Time Stop Time Status Last Admin Dose Admin Sodium Chloride 1,000 ml @ 999 mls/hr Q1H1M STAT IV 01/10/17 17:46 01/10/17 18:46 DC 01/10/17 18:51 999 MLS/HR Hydromorphone HCl (Dilaudid Inj) 1 mg NOW STAT IV 01/10/17 17:46 01/10/17 17:53 DC 01/10/17 18:52 1 MG Ondansetron HCl (Zofran Inj) 4 mg NOW STAT IV 01/10/17 17:46 01/10/17 17:53 DC 01/10/17 18:51 4 MG Lorazepam (Ativan Inj) 1 mg NOW STAT IV 01/10/17 19:38 01/10/17 19:39 DC 01/10/17 19:45 1 MG ED Course 1730 History and physical exam performed 1744 ordered labs/imaging/meds [address] came back with evidence of bowel obstruction 1941 Ordered NG tube Medical Decision 41 yo female comes into today with abdominal pain -Pt says that her presentation is similar to past bowel obstructions. Ordered abdominal/pelvis IV contrast to access if this is bowel obstruction. Nonetheless , considering the following differential: cholelithiasis, cholecystitis, pancreatitis, gastritis, ulcer, GERD, IBD, diverticulitis, gastroenteritis. Pt also reports have diarrheal illness last weekend. -CT showed signs of bowl obstruction Impression Primary Impression: Bowel obstruction Departure Information Dispostion Admitted as an inpatient Condition FAIR Referrals No Doctor, Assigned (PCP) Patient Instructions [facility]
[2017-01-10 18:55] LABS: BASO % 0.2 %; BASO ABS # 0.03 K/uL (0-0.2); COMPLETE YES; EOS % 0.1 %; HEMATOCRIT 39.4 % (37-47); IG% 0.3 %; LYMPH % 9.2 %; LYMPH ABS # 1.29 K/uL (1.2-3.4); MEAN CELL VOLUME 87.9 fL (80-100); MEAN CORPUSCULAR HEMOGLOBIN 28.6 pg (25-34); MEAN CORPUSCULAR HGB CONC 32.5 g/dl (32-36); MEAN PLATELET VOLUME 9.6 fL (7.4-10.4); MONO % 5.1 %; NEUT % 85.1 %; PLATELET COUNT 254 K/uL (130-400); RED BLOOD COUNT 4.48 M/uL (4.2-5.4); WHITE BLOOD COUNT 14.03 K/uL (4.8-10.8)
[2017-01-10 18:56] LABS: ISTAT CREATININE 0.7 mg/dl (0.6-1.3); ISTAT HEMOGLOBIN 12.6 g/dl (12.0-16.0); ISTAT IONIZED CALCIUM 1.03 mmol/l (1.12-1.32)
[2017-01-10 19:18] LABS: BLOOD UREA NITROGEN 7 mg/dl (7-18); BUN/CREATININE RATIO 9.1 (10-20); CALCIUM 8.5 mg/dl (8.5-10.1); CARBON DIOXIDE 25 mmol/L (21-32); CHLORIDE 107 mmol/L (98-107); CREATININE 0.72 mg/dl (0.60-1.20); GLUCOSE 113 mg/dl (70-99); SODIUM 140 mmol/L (136-145)
[2017-01-10 19:20] LABS: PREG INTERNAL NEGATIVE QC NEG CLEAR BACKGROUND; PREG INTERNAL POSITIVE QC POS CONTROL LINE
[2017-01-10 19:23] LABS: URINE APPEARANCE CLEAR (CLEAR); URINE BILIRUBIN NEG (NEG); URINE COLOR DK YELLOW; URINE EPITHELIAL CELL AUTO >30 /lpf (0-5); URINE NITRITE NEG (NEG); URINE SPECIFIC GRAVITY 1.024 (1.000-1.030); UROBILINOGEN NEG (NEG); ZZUR CULT IF INDIC CLEAN CATCH YES
[2017-01-10 19:24] LABS: MANUAL MICROSCOPIC REQUIRED? NO; REVIEW REQ? NO
[2017-01-10 19:24] LABS: ALKALINE PHOSPHATASE 81 U/L (45-117); ALT/SGPT 17 U/L (12-78); AST/SGOT 16 U/L (15-37)
[2017-01-10] MEDS ORDERED: LORAZEPAM 2 MG/ML 1 ML VIAL IV STA (19:38)
--- NOTE | 2017-01-10 19:42 | DIAGNOSTIC IMAGING REPORT ---
CT SCAN OF THE ABDOMEN AND PELVIS WITH IV CONTRAST CLINICAL HISTORY: Generalized abdominal pain. COMPARISON STUDY: Abdominal CT dated 08/30/2016. TECHNIQUE: Following the IV administration of 100 cc of Optiray 320, CT scan of the abdomen and pelvis is performed from the lung bases to the proximal femora. Images are reviewed in the axial, sagittal, and coronal planes. IV contrast was administered without complication. A dose lowering technique was utilized adhering to the principles of ALARA. CT DOSE: 313.30 mGy.cm FINDINGS: Lung bases: The heart is normal in size and without pericardial effusion. The lung bases are clear. Liver: The contrast-enhanced liver is normal in size, contour, and attenuation. There is minimal central intrahepatic biliary ductal dilatation. The hepatic veins and portal veins are patent. Gallbladder: Surgically absent noting clips in the gallbladder fossa. Spleen: Normal in size and attenuation. Pancreas: Unremarkable. Adrenal glands: Unremarkable. Kidneys: The contrast enhanced kidneys are normal in size and without hydronephrosis. The kidneys enhance symmetrically. A 2.0 cm cyst is present in the upper pole of the left kidney. Abdominal vasculature: The abdominal aorta is normal in course and caliber. Bowel: There is a long segment of thick-walled, edematous, and slightly hyperemic ileum identified in the right lower quadrant. This is best seen on axial image #291. The upstream small bowel is distended and fluid-filled measuring up to 3.7 cm in diameter, and a transition point is identified on axial image #333. The appearance is consistent with small bowel obstruction. There is interloop fluid. No pneumatosis intestinalis or portal venous gas is seen. The proximal small bowel is relatively decompressed, as is the colon. The appendix is not identified and reported surgically absent. Peritoneum: There is no intraperitoneal free air or abdominal ascites. There is a small fat-containing umbilical hernia as well as a fat-containing supraumbilical hernia. Lymphadenopathy: None. Pelvic viscera: The bladder is decompressed and not well evaluated. The uterus and adnexa are normal as visualized. There are bilateral ovarian follicles. A small volume of free fluid is seen in the cul-de-sac. Pelvic phleboliths are observed. Skeletal structures: No lytic or blastic lesions are seen. There are changes from anterior spinal fusion at L5-S1. IMPRESSION: 1. Findings are consistent with a small bowel obstruction with a transition point identified in the right lower quadrant. There is associated interloop fluid. 2. There is a long segment of thick-walled, edematous, and slightly hyperemic ileum which is distal to the small bowel obstruction and consistent with a nonspecific ileitis. This is likely on an infectious or inflammatory basis. 3. The small bowel obstruction could be on the basis of adhesions, or could be related to edema from the inflamed distal small bowel. 4. There are fat-containing umbilical and supraumbilical hernias. 5. A small volume of free fluid in the cul-de-sac may be on a reactive basis or could be within physiologic limits. Electronically signed by: Landry Wilkins M.D. 01/10/2017 7:40 PM Dictated Date/Time: 01/10/2017 7:29 PM
[2017-01-10] MEDS ORDERED: ONDANSETRON INJ 2 MG/ML 2 ML VIAL IV PRN (20:30)
[2017-01-10] MEDS ORDERED: ACETAMINOPHEN 325 MG TAB PO PRN (20:30)
[2017-01-10 20:32] VITALS: Ht 162.6 cm; Wt 68.0 kg
--- NOTE | 2017-01-10 20:38 | History and Physical ---
History & Physical Date & Time of Service: Jan 10, 2017 at 20:38 Chief Complaint: Abdominal Pain Primary Care Physician: No Doctor, Assigned History of Present Illness Source: patient Patient is a 41 yr female with PMH of multiple SBO, Depression, IBS, GERD, Migraine, sleep apnea and other problems presents with history of worsening abdominal pain since yesterday. she states she had multiple SBO since 2014. She was recently discharged from [facility] after being treated for SBO after undergoing laparotomy, lysis of adhesions. Patient had abdominal surgeries including appendectomy, cholecystectomy, laparotomy, back surgeries. She states abdominal pain is LLQ, colicky, 8/10, radiates across the abdomen, worsens with food intake and denies any relieving factors. She took pepto-bismol without much help. Last BM was this morning which was normal per patient. She had colonoscopy which was normal per patient. She feels bloated, decreased appetite and nauseous but denies vomiting. Denies any history of fever, chills, Chest pain, SOB, dizziness, headache, diarrhea, blood in stools, change in weight, cough, wheezing. CT abdomen is suggestive of SBO and nonspecific Ileitis. Past Medical/Surgical History Medical Problems: (1) Depression Status: Chronic (2) Dyslipidemia Status: Chronic (3) GERD (gastroesophageal reflux disease) Status: Chronic (4) LORENA (obstructive sleep apnea) Status: Chronic (5) SBO (small bowel obstruction) Permanent Comment: 11 days post op from appendectomy Status: Chronic (6) Small bowel obstruction Status: Resolved Surgical Problems: (1) H/O esophagogastroduodenoscopy Status: Resolved (2) H/O wisdom tooth extraction Status: Chronic (3) History of appendectomy Permanent Comment: appendix was adhered to pelvis causing SBO - patient has appendectomy and lysis of adhesions Status: Chronic (4) History of surgical removal of ganglion cyst Status: Chronic (5) History of tonsillectomy Status: Chronic (6) Hx of cholecystectomy Status: Chronic (7) S/P lumbar fusion Status: Chronic Family History FH: breast cancer SISTER Reviewed, Not contributory Social History Smoking Status: Former Smoker (Quit in 2012) Alcohol Use: none Drug Use: none Marital Status: Immunizations History of Influenza Vaccine: Yes Influenza Vaccine Date: Apr 11, 2016 History of Tetanus Vaccine?: Yes Tetanus Immunization Date: Dec 11, 2012 History of Pneumococcal: Yes Pneumococcal Date: Dec 22, 2008 History of Hepatitis B Vaccine: Yes Hepatitis Immunization Date: Jan 03, 2004 Allergies Coded Allergies: BEE STING (Verified Allergy, Severe, ANAPHYLAXIS, 01/10/17) Amoxicillin (Verified Adverse Reaction, Mild, nausea/vomitting, 01/10/17) Erythromycin (Verified Adverse Reaction, Mild, nausea/vomitting, 01/10/17) Home Medications Scheduled Loratadine (Claritin), 10 MG PO DAILY Lubiprostone (Amitiza), 16 MCG PO QPM Montelukast Sod (Montelukast Sodium), 10 MG PO HS Pantoprazole (Protonix), 40 MG PO HS Simvastatin (Zocor), 20 MG PO QPM Venlafaxine Hcl (Effexor Extended Rel), 225 MG PO DAILY Scheduled PRN Oxycodone/Acetaminophen 5MG/325MG (Percocet 5MG/325MG), 1-2 TABLETS PO Q6H PRN for Pain Review of Systems See HPI for pertinent positives & negatives. A total of 10 systems reviewed and were otherwise negative. Physical Exam Vital Signs Date Time Temp Pulse Resp B/P (MAP) Pulse Ox O2 Delivery O2 Flow Rate FiO2 01/10/17 18:54 93 18 119/81 98 Room Air 01/10/17 17:33 99 18 127/73 97 Room Air 01/10/17 17:16 37.1 120 18 111/81 100 Room Air General Appearance: WD/WN, no apparent distress Head: normocephalic, atraumatic Eyes: normal inspection, PERRL, EOMI, sclerae normal ENT: normal ENT inspection, hearing grossly normal Neck: supple, no JVD, trachea midline Respiratory/Chest: chest non-tender, lungs clear, normal breath sounds, no respiratory distress, no accessory muscle use Cardiovascular: regular rate, rhythm, no edema, no murmur, + tachycardia Abdomen/GI: soft, no organomegaly, + tenderness (LLQ), + pertinent finding ( Decreased bowel sounds) Back: normal inspection Extremities/Musculoskelatal: normal inspection, no pedal edema Neurologic/Psych: 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 II-XII nml as tested, no motor/sensory deficits, alert, normal mood/affect, oriented x 3 Skin: normal color, warm/dry, + pertinent finding (Multiple well healed post surgical scars on abdomen ) Diagnostics Laboratory Results Results Past 24 Hours Test 01/10/17 18:30 01/10/17 18:44 01/10/17 18:50 Range/Units White Blood Count 14.03 4.8-10.8 K/uL Red Blood Count 4.48 4.2-5.4 M/uL Hemoglobin 12.8 12.0-16.0 g/dL Hematocrit 39.4 37-47 % Mean Corpuscular Volume 87.9 80-100 fL Mean Corpuscular Hemoglobin 28.6 25-34 pg Mean Corpuscular Hemoglobin Concent 32.5 32-36 g/dl Platelet Count 254 130-400 K/uL Mean Platelet Volume 9.6 7.4-10.4 fL Neutrophils (%) (Auto) 85.1 % Lymphocytes (%) (Auto) 9.2 % Monocytes (%) (Auto) 5.1 % Eosinophils (%) (Auto) 0.1 % Basophils (%) (Auto) 0.2 % Neutrophils # (Auto) 11.94 1.4-6.5 K/uL Lymphocytes # (Auto) 1.29 1.2-3.4 K/uL Monocytes # (Auto) 0.72 0.11-0.59 K/uL Eosinophils # (Auto) 0.01 0-0.5 K/uL Basophils # (Auto) 0.03 0-0.2 K/uL RDW Standard Deviation 43.2 36.4-46.3 fL RDW Coefficient of Variation 13.4 11.5-14.5 % Immature Granulocyte % (Auto) 0.3 % Immature Granulocyte # (Auto) 0.04 0.00-0.02 K/uL Sodium Level 140 136-145 mmol/L Potassium Level 4.0 3.5-5.1 mmol/L Chloride Level 107 98-107 mmol/L Carbon Dioxide Level 25 21-32 mmol/L Anion Gap 8.0 18.0 16-25 mmol/L Blood Urea Nitrogen 7 7-18 mg/dl Creatinine 0.72 0.60-1.20 mg/dl Est Creatinine Clear Calc Drug Dose 95.5 ml/min Estimated GFR () 118.9 Estimated GFR (Non- 102.6 BUN/Creatinine Ratio 9.1 10-20 Random Glucose 113 70-99 mg/dl Calcium Level 8.5 8.5-10.1 mg/dl Total Bilirubin 0.3 0.2-1 mg/dl Direct Bilirubin < 0.1 0-0.2 mg/dl Aspartate Amino Transf (AST/SGOT) 16 15-37 U/L Alanine Aminotransferase (ALT/SGPT) 17 12-78 U/L Alkaline Phosphatase 81 45-117 U/L Total Protein 6.6 6.4-8.2 gm/dl Albumin 3.4 3.4-5.0 gm/dl Lipase 150 73-393 U/L Human Chorionic Gonadotropin, Qual NEG NEG Bedside Hemoglobin 12.6 12.0-16.0 g/dl Bedside Hematocrit 37 37-47 % Bedside Sodium 139 135-144 mEq/L Bedside Potassium 3.9 3.3-5.0 mEq/L Bedside Chloride 104 101-112 mEq/L Bedside Total CO2 22 24-31 mEq/l Bedside Blood Urea Nitrogen 5 7-18 mg/dl Bedside Creatinine 0.7 0.6-1.3 mg/dl Bedside Glucose (other) 118 70-99 mg/dl Bedside Ionized Calcium (Larry) 1.03 1.12-1.32 mmol/l Urine Color DK YELLOW Urine Appearance CLEAR CLEAR Urine pH 5.0 4.5-7.5 Urine Specific [place] 1.024 1.000-1.030 Urine Protein NEG NEG Urine Glucose (UA) NEG NEG Urine Ketones TRACE NEG Urine Occult Blood TRACE NEG Urine Nitrite NEG NEG Urine Bilirubin NEG NEG Urine Urobilinogen NEG NEG Urine Leukocyte Esterase TRACE NEG Urine WBC (Auto) 10-30 0-5 /hpf Urine RBC (Auto) 5-10 0-4 /hpf Urine Hyaline Casts (Auto) 1-5 0-5 /lpf Urine Epithelial Cells (Auto) >30 0-5 /lpf Urine Bacteria (Auto) NEG NEG Urine Test NEG NEG Microbiology Results 01/10/17 Blood Culture, Ordered Pending 01/10/17 Blood Culture, Ordered Pending 01/10/17 Urine Culture, Received Pending Diagnostic Radiology CT ABD: 1. Findings are consistent with a small bowel obstruction with a transition point identified in the right lower quadrant. There is associated interloop fluid. 2. There is a long segment of thick-walled, edematous, and slightly hyperemic ileum which is distal to the small bowel obstruction and consistent with a nonspecific ileitis. This is likely on an infectious or inflammatory basis. 3. The small bowel obstruction could be on the basis of adhesions, or could be related to edema from the inflamed distal small bowel. 4. There are fat-containing umbilical and supraumbilical hernias. 5. A small volume of free fluid in the cul-de-sac may be on a reactive basis or could be within physiologic limits. Impression Assessment and Plan SBO: H/O multiple SBO since 2014 H/O abdominal surgeries including appendectomy, cholecystectomy, laparotomy, back surgeries. NPO for now Pain control NG tube, IV fluids Surgery consulted Empiric antibiotics for nonspecific Ileitis on CT abdomen Hold Amitiza Follow blood cultures Depression; Continue home meds IBS: hold Amitiza for now GERD: continue PPI Migraine: Stable sleep apnea: Not using CPAP as recommended Seasonal Allergies; continue home meds DVT Px: Heparin SQ Code Status: Full Code VTE Prophylaxis VTE Risk Assessment Done? Y/N: Yes Risk Level: Low
[2017-01-10] MEDS ORDERED: MoRPHine SULFATE 2 MG/ML CARP IV PRN (20:45)
[2017-01-10] MEDS: MONTELUKAST SOD 10 MG TAB PO SCH (21:00)
[2017-01-10] MEDS: PANTOprazole SOD 40 MG TAB PO SCH (21:00)
[2017-01-10 21:55] LABS: INR 0.9 (0.9-1.1); PROTHROMBIN TIME (PATIENT) 9.8 SECONDS (9.0-12.0)
[2017-01-10] MEDS: SODIUM CHLORIDE 0.9% 1000ML 1,000 ML IV SCH (22:16)
[2017-01-10] MEDS: METRONIDAZOLE / NSS 500 MG in PREMIXED NSS 100 ML IV SCH (22:31)
[2017-01-10 23:04] VITALS: BP 122/69; PULSE 103; TEMP 36.7; O2SAT 97
--- NOTE | 2017-01-10 23:34 | SURGICAL CONSULTATION ---
DATE OF ADMISSION: 01/10/2017 REASON FOR CONSULTATION: Small-bowel obstruction. HISTORY OF PRESENT ILLNESS: The patient is a 41-year-old female who began experiencing some left lower abdominal pain today with nausea and bloating. She has a history of small-bowel obstruction with operation in August of this year by Dr. Figueroa for small-bowel obstruction with laparotomy and lysis of adhesions. She underwent a CAT scan which showed distended fluid-filled small-bowel with some mild ileal thickening distally consistent with ileitis. OTHER PAST HISTORY: Includes small-bowel obstruction, depression, dyslipidemia, history of appendectomy, cholecystectomy, lumbar fusion. FAMILY AND SOCIAL HISTORY: Essentially noncontributory. ALLERGIES: SHE HAS AN ALLERGY TO AMOXICILLIN AND ERYTHROMYCIN. REVIEW OF SYSTEMS: Please see HPI. Other systems reviewed are negative. PHYSICAL EXAMINATION: GENERAL: She is well developed, well nourished. She is awake and alert. She is in no distress. HEENT: Her head is atraumatic. NECK: Supple. LUNGS: No respiratory distress. HEART: Regular rate and rhythm. ABDOMEN: Soft. She does have bowel sounds. She has some mild tenderness to deep palpation. SKIN: No rashes. I did review her CAT scan. ASSESSMENT AND PLAN: A 41-year-old female with evidence of at least partial small-bowel obstruction. We will try NG decompression and nonoperative management. She does seem to be stable at the present time.
[2017-01-11] MEDS: CIPROFLOXACIN / D5W 400 MG in PREMIXED IN D5W 200 ML IV SCH ×2 (00:54→12:25)
[2017-01-11] MEDS: METRONIDAZOLE / NSS 500 MG in PREMIXED NSS 100 ML IV SCH ×3 (06:13→22:05)
[2017-01-11] MEDS: SODIUM CHLORIDE 0.9% 1000ML 1,000 ML IV SCH ×3 (06:13→22:05)
--- NOTE | 2017-01-11 06:20 | Surgery Progress Note ---
Surgery Progress Note Date of Service Jan 11, 2017. Subjective No bowel movement, No flatus, No nausea, No vomiting NG- min normal gastric fluid less pain Objective Vital Signs: Date Time Temp Pulse Resp B/P (MAP) Pulse Ox O2 Delivery O2 Flow Rate FiO2 01/11/17 00:30 Room Air 01/10/17 23:04 36.7 103 16 122/69 (86) 97 Room Air 01/10/17 21:25 92 20 120/79 95 01/10/17 21:00 92 20 120/79 95 Room Air 01/10/17 20:32 Room Air 01/10/17 18:54 93 18 119/81 98 Room Air 01/10/17 17:33 99 18 127/73 97 Room Air 01/10/17 17:16 37.1 120 18 111/81 100 Room Air General Appearance: no apparent distress Respiratory/Chest: no respiratory distress Abdomen: soft (some bowel sounds) Laboratory Results: Results Past 24 Hours Test 01/10/17 18:30 01/10/17 18:44 01/10/17 18:50 01/10/17 21:25 Range/Units White Blood Count 14.03 4.8-10.8 K/uL Red Blood Count 4.48 4.2-5.4 M/uL Hemoglobin 12.8 12.0-16.0 g/dL Hematocrit 39.4 37-47 % Mean Corpuscular Volume 87.9 80-100 fL Mean Corpuscular Hemoglobin 28.6 25-34 pg Mean Corpuscular Hemoglobin Concent 32.5 32-36 g/dl Platelet Count 254 130-400 K/uL Mean Platelet Volume 9.6 7.4-10.4 fL Neutrophils (%) (Auto) 85.1 % Lymphocytes (%) (Auto) 9.2 % Monocytes (%) (Auto) 5.1 % Eosinophils (%) (Auto) 0.1 % Basophils (%) (Auto) 0.2 % Neutrophils # (Auto) 11.94 1.4-6.5 K/uL Lymphocytes # (Auto) 1.29 1.2-3.4 K/uL Monocytes # (Auto) 0.72 0.11-0.59 K/uL Eosinophils # (Auto) 0.01 0-0.5 K/uL Basophils # (Auto) 0.03 0-0.2 K/uL RDW Standard Deviation 43.2 36.4-46.3 fL RDW Coefficient of Variation 13.4 11.5-14.5 % Immature Granulocyte % (Auto) 0.3 % Immature Granulocyte # (Auto) 0.04 0.00-0.02 K/uL Sodium Level 140 136-145 mmol/L Potassium Level 4.0 3.5-5.1 mmol/L Chloride Level 107 98-107 mmol/L Carbon Dioxide Level 25 21-32 mmol/L Anion Gap 8.0 18.0 16-25 mmol/L Blood Urea Nitrogen 7 7-18 mg/dl Creatinine 0.72 0.60-1.20 mg/dl Est Creatinine Clear Calc Drug Dose 95.5 ml/min Estimated GFR () 118.9 Estimated GFR (Non- 102.6 BUN/Creatinine Ratio 9.1 10-20 Random Glucose 113 70-99 mg/dl Calcium Level 8.5 8.5-10.1 mg/dl Total Bilirubin 0.3 0.2-1 mg/dl Direct Bilirubin < 0.1 0-0.2 mg/dl Aspartate Amino Transf (AST/SGOT) 16 15-37 U/L Alanine Aminotransferase (ALT/SGPT) 17 12-78 U/L Alkaline Phosphatase 81 45-117 U/L Total Protein 6.6 6.4-8.2 gm/dl Albumin 3.4 3.4-5.0 gm/dl Lipase 150 73-393 U/L Human Chorionic Gonadotropin, Qual NEG NEG Bedside Hemoglobin 12.6 12.0-16.0 g/dl Bedside Hematocrit 37 37-47 % Bedside Sodium 139 135-144 mEq/L Bedside Potassium 3.9 3.3-5.0 mEq/L Bedside Chloride 104 101-112 mEq/L Bedside Total CO2 22 24-31 mEq/l Bedside Blood Urea Nitrogen 5 7-18 mg/dl Bedside Creatinine 0.7 0.6-1.3 mg/dl Bedside Glucose (other) 118 70-99 mg/dl Bedside Ionized Calcium (Larry) 1.03 1.12-1.32 mmol/l Urine Color DK YELLOW Urine Appearance CLEAR CLEAR Urine pH 5.0 4.5-7.5 Urine Specific [place] 1.024 1.000-1.030 Urine Protein NEG NEG Urine Glucose (UA) NEG NEG Urine Ketones TRACE NEG Urine Occult Blood TRACE NEG Urine Nitrite NEG NEG Urine Bilirubin NEG NEG Urine Urobilinogen NEG NEG Urine Leukocyte Esterase TRACE NEG Urine WBC (Auto) 10-30 0-5 /hpf Urine RBC (Auto) 5-10 0-4 /hpf Urine Hyaline Casts (Auto) 1-5 0-5 /lpf Urine Epithelial Cells (Auto) >30 0-5 /lpf Urine Bacteria (Auto) NEG NEG Urine Test NEG NEG Prothrombin Time 9.8 9.0-12.0 SECONDS Prothromb Time International Ratio 0.9 0.9-1.1 Activated Partial Thromboplast Time 25.0 21.0-31.0 SECONDS Partial Thromboplastin Ratio 1.0 Test 01/11/17 04:44 Range/Units Microbiology Results 01/10/17 Blood Culture, Received Pending 01/10/17 Blood Culture, Received Pending 01/10/17 Urine Culture, Received Pending Assessment & Plan 01/11/17- adm with recurrent sbo- recent operation for the same- lysis of adhesions- ice only, ambulate check labs
[2017-01-11] MEDS: HEPARIN SOD 5000 UNIT/0.5 ML CARP SQ SCH ×3 (06:26→22:06)
[2017-01-11 07:00] VITALS: BP 115/78; PULSE 86; TEMP 36.7; O2SAT 95
[2017-01-11 07:18] LABS: BASO % 0.3 %; BASO ABS # 0.02 K/uL (0-0.2); COMPLETE YES; EOS % 1.3 %; HEMATOCRIT 35.1 % (37-47); IG% 0.3 %; LYMPH % 22.7 %; LYMPH ABS # 1.54 K/uL (1.2-3.4); MEAN CELL VOLUME 90.7 fL (80-100); MEAN CORPUSCULAR HEMOGLOBIN 28.7 pg (25-34); MEAN CORPUSCULAR HGB CONC 31.6 g/dl (32-36); MEAN PLATELET VOLUME 9.2 fL (7.4-10.4); MONO % 7.7 %; NEUT % 67.7 %; PLATELET COUNT 207 K/uL (130-400); RED BLOOD COUNT 3.87 M/uL (4.2-5.4); WHITE BLOOD COUNT 6.77 K/uL (4.8-10.8)
[2017-01-11 07:45] VITALS: O2SAT 95
[2017-01-11 07:49] LABS: BUN/CREATININE RATIO 10.1 (10-20); CALCIUM 7.9 mg/dl (8.5-10.1); CREATININE 0.67 mg/dl (0.60-1.20); MAGNESIUM 2.2 mg/dl (1.8-2.4); POTASSIUM 3.7 mmol/L (3.5-5.1)
[2017-01-11] MEDS: VENLAFAXINE HCL XR 75 MG CAPXR PO SCH (09:30)
[2017-01-11] MEDS: LORATADINE 10 MG TAB PO SCH (09:30)
[2017-01-11 14:59] VITALS: BP 110/74; PULSE 93; TEMP 36.9; O2SAT 96
--- NOTE | 2017-01-11 17:48 | Progress Note ---
Medicine Progress Note Date & Time of Visit: Jan 11, 2017 at 17:42. Subjective Patient denies any complaints; still has some abdominal pain but states it is better. No overnight events noted. Passing flatus. No other complaints at this time. Was advanced to ice chips only today. Objective Last 8 Hrs Date Time Temp Pulse Resp B/P (MAP) Pulse Ox O2 Delivery O2 Flow Rate FiO2 01/11/17 15:40 Room Air 01/11/17 14:59 36.9 93 20 110/74 (86) 96 Room Air Physical Exam: GENERAL: Patient is in no acute distress. HEENT: No acute trauma, normocephalic atraumatic, mucous membranes moist, no nasal congestion, no scleral icterus. NECK: No stridor, trachea is midline. LUNGS: Clear to auscultation bilaterally, no wheeze, no rhonchi, breath sounds equal. HEART: Without murmurs gallops or rubs, regular rate and rhythm. ABDOMEN: Soft, tender to palpation sathish-umbilically, bowel sounds positive, nondistended EXTREMITIES: No cyanosis or edema, full range of motion of all the joints without pain or difficulty, no signs for acute trauma. NEUROLOGIC: Oriented x 3, no acute motor or sensory deficits, no focal weakness. SKIN: No rash, no jaundice, no diaphoresis. Laboratory Results: Last 24 Hours Test 01/10/17 18:30 01/10/17 18:44 01/10/17 18:50 01/10/17 21:25 White Blood Count 14.03 K/uL Red Blood Count 4.48 M/uL Hemoglobin 12.8 g/dL Hematocrit 39.4 % Mean Corpuscular Volume 87.9 fL Mean Corpuscular Hemoglobin 28.6 pg Mean Corpuscular Hemoglobin Concent 32.5 g/dl Platelet Count 254 K/uL Mean Platelet Volume 9.6 fL Neutrophils (%) (Auto) 85.1 % Lymphocytes (%) (Auto) 9.2 % Monocytes (%) (Auto) 5.1 % Eosinophils (%) (Auto) 0.1 % Basophils (%) (Auto) 0.2 % Neutrophils # (Auto) 11.94 K/uL Lymphocytes # (Auto) 1.29 K/uL Monocytes # (Auto) 0.72 K/uL Eosinophils # (Auto) 0.01 K/uL Basophils # (Auto) 0.03 K/uL RDW Standard Deviation 43.2 fL RDW Coefficient of Variation 13.4 % Immature Granulocyte % (Auto) 0.3 % Immature Granulocyte # (Auto) 0.04 K/uL Sodium Level 140 mmol/L Potassium Level 4.0 mmol/L Chloride Level 107 mmol/L Carbon Dioxide Level 25 mmol/L Anion Gap 8.0 mmol/L 18.0 mmol/L Blood Urea Nitrogen 7 mg/dl Creatinine 0.72 mg/dl Est Creatinine Clear Calc Drug Dose 95.5 ml/min Estimated GFR () 118.9 Estimated GFR (Non- 102.6 BUN/Creatinine Ratio 9.1 Random Glucose 113 mg/dl Calcium Level 8.5 mg/dl Total Bilirubin 0.3 mg/dl Direct Bilirubin < 0.1 mg/dl Aspartate Amino Transf (AST/SGOT) 16 U/L Alanine Aminotransferase (ALT/SGPT) 17 U/L Alkaline Phosphatase 81 U/L Total Protein 6.6 gm/dl Albumin 3.4 gm/dl Lipase 150 U/L Human Chorionic Gonadotropin, Qual NEG Bedside Hemoglobin 12.6 g/dl Bedside Hematocrit 37 % Bedside Sodium 139 mEq/L Bedside Potassium 3.9 mEq/L Bedside Chloride 104 mEq/L Bedside Total CO2 22 mEq/l Bedside Blood Urea Nitrogen 5 mg/dl Bedside Creatinine 0.7 mg/dl Bedside Glucose (other) 118 mg/dl Bedside Ionized Calcium (Larry) 1.03 mmol/l Urine Color DK YELLOW Urine Appearance CLEAR Urine pH 5.0 Urine Specific [place] 1.024 Urine Protein NEG Urine Glucose (UA) NEG Urine Ketones TRACE Urine Occult Blood TRACE Urine Nitrite NEG Urine Bilirubin NEG Urine Urobilinogen NEG Urine Leukocyte Esterase TRACE Urine WBC (Auto) 10-30 /hpf Urine RBC (Auto) 5-10 /hpf Urine Hyaline Casts (Auto) 1-5 /lpf Urine Epithelial Cells (Auto) >30 /lpf Urine Bacteria (Auto) NEG Urine Test NEG Prothrombin Time 9.8 SECONDS Prothromb Time International Ratio 0.9 Activated Partial Thromboplast Time 25.0 SECONDS Partial Thromboplastin Ratio 1.0 Test 01/11/17 07:01 White Blood Count 6.77 K/uL Red Blood Count 3.87 M/uL Hemoglobin 11.1 g/dL Hematocrit 35.1 % Mean Corpuscular Volume 90.7 fL Mean Corpuscular Hemoglobin 28.7 pg Mean Corpuscular Hemoglobin Concent 31.6 g/dl Platelet Count 207 K/uL Mean Platelet Volume 9.2 fL Neutrophils (%) (Auto) 67.7 % Lymphocytes (%) (Auto) 22.7 % Monocytes (%) (Auto) 7.7 % Eosinophils (%) (Auto) 1.3 % Basophils (%) (Auto) 0.3 % Neutrophils # (Auto) 4.58 K/uL Lymphocytes # (Auto) 1.54 K/uL Monocytes # (Auto) 0.52 K/uL Eosinophils # (Auto) 0.09 K/uL Basophils # (Auto) 0.02 K/uL RDW Standard Deviation 45.1 fL RDW Coefficient of Variation 13.7 % Immature Granulocyte % (Auto) 0.3 % Immature Granulocyte # (Auto) 0.02 K/uL Sodium Level 142 mmol/L Potassium Level 3.7 mmol/L Chloride Level 109 mmol/L Carbon Dioxide Level 26 mmol/L Anion Gap 7.0 mmol/L Blood Urea Nitrogen 7 mg/dl Creatinine 0.67 mg/dl Est Creatinine Clear Calc Drug Dose 102.6 ml/min Estimated GFR () 124.8 Estimated GFR (Non- 107.7 BUN/Creatinine Ratio 10.1 Random Glucose 95 mg/dl Calcium Level 7.9 mg/dl Magnesium Level 2.2 mg/dl Date/Time Source Procedure Growth Status 01/10/17 21:16 Blood Blood Culture Pending Received 01/10/17 21:13 Blood Blood Culture Pending Received 01/10/17 18:50 Urine , Clean Catch Urine Culture - Preliminary NO GROWTH - LESS THAN 1,000 COLONIES/... Resulted Assessment & Plan SBO: -has had multiple SBO since 2014 (patient states this is her 7th) -multiple abdominal surgeries including appendectomy, cholecystectomy, laparotomy with CARITO, and back surgeries -NPO -NG tube remains to suction -pain control -continue IV fluids -Surgery consulted, appreciate recommendations -empiric antibiotics for nonspecific Ileitis on CT abdomen -hold Amitiza -follow cultures DEPRESSION: -continue home meds IBS: -hold Amitiza for now GERD: -continue PPI MIGRAINE: -no symptoms at this time LORENA: -not compliant with CPAP ALLERGIC RHINITIS: -continue home meds Current Inpatient Medications: Current Inpatient Medications Medications (Trade) Dose Ordered Sig/Toño Route Start Time Stop Time Status Last Admin Dose Admin Ioversol (Optiray 320) 100 ml UD PRN IV 01/10/17 18:00 01/14/17 17:59 Heparin Sodium (Porcine) (Heparin Sq 5000 Unit/0.5ml) 5,000 unit Q8H SQ 01/11/17 06:00 02/10/17 05:59 01/11/17 14:29 5,000 UNIT Acetaminophen (Tylenol Tab) 650 mg Q4H PRN PO 01/10/17 20:30 02/09/17 20:29 Ondansetron HCl (Zofran Inj) 4 mg Q6H PRN IV 01/10/17 20:30 02/09/17 20:29 Sodium Chloride 1,000 ml @ 125 mls/hr Q8H IV 01/10/17 22:00 02/09/17 21:59 01/11/17 14:00 125 MLS/HR Morphine Sulfate (MoRPHine SULFATE INJ) 2 mg Q3H PRN IV 01/10/17 20:45 01/24/17 20:44 Ciprofloxacin/ Dextrose 400 mg/ Prmx 200 ml @ 100 mls/hr Q12H IV 01/11/17 00:00 01/21/17 00:00 01/11/17 12:25 100 MLS/HR Metronidazole 500 mg/Prmx 100 ml @ 100 mls/hr Q8H IV 01/10/17 22:00 01/20/17 21:59 01/11/17 14:26 100 MLS/HR Loratadine (Claritin Tab) 10 mg DAILY PO 01/11/17 09:00 02/10/17 08:59 01/11/17 09:30 10 MG Montelukast Sodium (Singulair Tab) 10 mg HS PO 01/10/17 21:00 02/09/17 20:59 Pantoprazole Sodium (Protonix Tab) 40 mg HS PO 01/10/17 21:00 02/09/17 20:59 Venlafaxine HCl (effeXOR EXTENDED REL CAP) 225 mg DAILY PO 01/11/17 09:00 02/10/17 08:59 01/11/17 09:30 225 MG
[2017-01-11] MEDS: PANTOprazole SOD 40 MG TAB PO SCH (20:41)
[2017-01-11] MEDS: MONTELUKAST SOD 10 MG TAB PO SCH (20:41)
[2017-01-11 22:59] VITALS: BP 108/67; PULSE 93; TEMP 36.8; O2SAT 96
[2017-01-12] MEDS: CIPROFLOXACIN / D5W 400 MG in PREMIXED IN D5W 200 ML IV SCH ×2 (00:26→12:05)
[2017-01-12] MEDS: HEPARIN SOD 5000 UNIT/0.5 ML CARP SQ SCH ×3 (05:35→22:02)
[2017-01-12] MEDS: SODIUM CHLORIDE 0.9% 1000ML 1,000 ML IV SCH ×3 (05:35→22:01)
[2017-01-12] MEDS: METRONIDAZOLE / NSS 500 MG in PREMIXED NSS 100 ML IV SCH ×3 (05:35→21:59)
[2017-01-12] MEDS ORDERED: MINERAL OIL 30 ML UDC PO ONE (06:15)
--- NOTE | 2017-01-12 06:16 | Surgery Progress Note ---
Surgery Progress Note Date of Service Jan 12, 2017. Subjective had some addnl bilious NG outpt but some bowel function/ flatus Objective Vital Signs: Date Time Temp Pulse Resp B/P (MAP) Pulse Ox O2 Delivery O2 Flow Rate FiO2 01/12/17 00:15 Room Air 01/11/17 22:59 36.8 93 16 108/67 (81) 96 Room Air 01/11/17 15:40 Room Air 01/11/17 14:59 36.9 93 20 110/74 (86) 96 Room Air 01/11/17 07:45 95 Room Air 01/11/17 07:00 36.7 86 20 115/78 (90) 95 Room Air General Appearance: no apparent distress Respiratory/Chest: no respiratory distress Abdomen: soft (positive bowel sounds) Laboratory Results: Results Past 24 Hours Test 01/11/17 07:01 01/12/17 04:44 Range/Units White Blood Count 6.77 4.8-10.8 K/uL Red Blood Count 3.87 4.2-5.4 M/uL Hemoglobin 11.1 12.0-16.0 g/dL Hematocrit 35.1 37-47 % Mean Corpuscular Volume 90.7 80-100 fL Mean Corpuscular Hemoglobin 28.7 25-34 pg Mean Corpuscular Hemoglobin Concent 31.6 32-36 g/dl Platelet Count 207 130-400 K/uL Mean Platelet Volume 9.2 7.4-10.4 fL Neutrophils (%) (Auto) 67.7 % Lymphocytes (%) (Auto) 22.7 % Monocytes (%) (Auto) 7.7 % Eosinophils (%) (Auto) 1.3 % Basophils (%) (Auto) 0.3 % Neutrophils # (Auto) 4.58 1.4-6.5 K/uL Lymphocytes # (Auto) 1.54 1.2-3.4 K/uL Monocytes # (Auto) 0.52 0.11-0.59 K/uL Eosinophils # (Auto) 0.09 0-0.5 K/uL Basophils # (Auto) 0.02 0-0.2 K/uL RDW Standard Deviation 45.1 36.4-46.3 fL RDW Coefficient of Variation 13.7 11.5-14.5 % Immature Granulocyte % (Auto) 0.3 % Immature Granulocyte # (Auto) 0.02 0.00-0.02 K/uL Sodium Level 142 136-145 mmol/L Potassium Level 3.7 3.5-5.1 mmol/L Chloride Level 109 98-107 mmol/L Carbon Dioxide Level 26 21-32 mmol/L Anion Gap 7.0 3-11 mmol/L Blood Urea Nitrogen 7 7-18 mg/dl Creatinine 0.67 0.60-1.20 mg/dl Est Creatinine Clear Calc Drug Dose 102.6 ml/min Estimated GFR () 124.8 Estimated GFR (Non- 107.7 BUN/Creatinine Ratio 10.1 10- Random Glucose 95 70-99 mg/dl Calcium Level 7.9 8.5-10.1 mg/dl Magnesium Level 2.2 1.8-2.4 mg/dl Assessment & Plan 01/12/17- discussed with pt- will try clamping NG- give dose of mineral oil and senna syrup 01/11/17- adm with recurrent sbo- recent operation for the same- lysis of adhesions- ice only, ambulate check labs 01/11/17- adm with recurrent sbo- recent operation for the same- lysis of adhesions- ice only, ambulate check labs
[2017-01-12 06:58] LABS: BASO % 0.4 %; BASO ABS # 0.03 K/uL (0-0.2); COMPLETE YES; EOS % 0.4 %; HEMATOCRIT 33.2 % (37-47); IG% 0.4 %; LYMPH % 17.4 %; LYMPH ABS # 1.39 K/uL (1.2-3.4); MEAN CELL VOLUME 89.2 fL (80-100); MEAN CORPUSCULAR HEMOGLOBIN 28.5 pg (25-34); MEAN CORPUSCULAR HGB CONC 31.9 g/dl (32-36); MEAN PLATELET VOLUME 9.4 fL (7.4-10.4); MONO % 4.9 %; NEUT % 76.5 %; PLATELET COUNT 193 K/uL (130-400); RED BLOOD COUNT 3.72 M/uL (4.2-5.4); WHITE BLOOD COUNT 8.01 K/uL (4.8-10.8)
[2017-01-12 07:34] LABS: BUN/CREATININE RATIO 11.2 (10-20); CALCIUM 7.6 mg/dl (8.5-10.1); CREATININE 0.51 mg/dl (0.60-1.20); MAGNESIUM 2.1 mg/dl (1.8-2.4); PHOSPHORUS 2.2 mg/dl (2.5-4.9); POTASSIUM 3.5 mmol/L (3.5-5.1)
[2017-01-12 08:05] VITALS: BP 112/70; PULSE 90; TEMP 36.9; O2SAT 94
[2017-01-12] MEDS: LORATADINE 10 MG TAB PO SCH (08:29)
[2017-01-12] MEDS: VENLAFAXINE HCL XR 75 MG CAPXR PO SCH (08:29)
[2017-01-12] MEDS: SENNA 8.8 MG/5 ML UDP PO SCH ×2 (08:31→21:59)
[2017-01-12 15:02] VITALS: BP 116/76; PULSE 87; TEMP 36.7; O2SAT 96
--- NOTE | 2017-01-12 17:47 | Progress Note ---
Medicine Progress Note Date & Time of Visit: Jan 12, 2017 at 17:47. Objective Last 8 Hrs Date Time Temp Pulse Resp B/P (MAP) Pulse Ox O2 Delivery O2 Flow Rate FiO2 01/12/17 15:40 Room Air 01/12/17 15:02 36.7 87 18 116/76 (89) 96 Room Air Physical Exam: GENERAL: Patient is in no acute distress. HEENT: No acute trauma, normocephalic atraumatic, mucous membranes moist, no nasal congestion, no scleral icterus. NECK: No stridor, trachea is midline. LUNGS: Clear to auscultation bilaterally, no wheeze, no rhonchi, breath sounds equal. HEART: Without murmurs gallops or rubs, regular rate and rhythm. ABDOMEN: Soft, tender to palpation sathish-umbilically, bowel sounds positive, nondistended EXTREMITIES: No cyanosis or edema, full range of motion of all the joints without pain or difficulty, no signs for acute trauma. NEUROLOGIC: Oriented x 3, no acute motor or sensory deficits, no focal weakness. SKIN: No rash, no jaundice, no diaphoresis. Laboratory Results: Last 24 Hours Test 01/12/17 06:27 White Blood Count 8.01 K/uL Red Blood Count 3.72 M/uL Hemoglobin 10.6 g/dL Hematocrit 33.2 % Mean Corpuscular Volume 89.2 fL Mean Corpuscular Hemoglobin 28.5 pg Mean Corpuscular Hemoglobin Concent 31.9 g/dl Platelet Count 193 K/uL Mean Platelet Volume 9.4 fL Neutrophils (%) (Auto) 76.5 % Lymphocytes (%) (Auto) 17.4 % Monocytes (%) (Auto) 4.9 % Eosinophils (%) (Auto) 0.4 % Basophils (%) (Auto) 0.4 % Neutrophils # (Auto) 6.14 K/uL Lymphocytes # (Auto) 1.39 K/uL Monocytes # (Auto) 0.39 K/uL Eosinophils # (Auto) 0.03 K/uL Basophils # (Auto) 0.03 K/uL RDW Standard Deviation 42.7 fL RDW Coefficient of Variation 13.2 % Immature Granulocyte % (Auto) 0.4 % Immature Granulocyte # (Auto) 0.03 K/uL Sodium Level 142 mmol/L Potassium Level 3.5 mmol/L Chloride Level 110 mmol/L Carbon Dioxide Level 25 mmol/L Anion Gap 7.0 mmol/L Blood Urea Nitrogen 6 mg/dl Creatinine 0.51 mg/dl Est Creatinine Clear Calc Drug Dose 134.8 ml/min Estimated GFR () 136.5 Estimated GFR (Non- 117.8 BUN/Creatinine Ratio 11.2 Random Glucose 93 mg/dl Calcium Level 7.6 mg/dl Phosphorus Level 2.2 mg/dl Magnesium Level 2.1 mg/dl Assessment & Plan SBO: -has had multiple SBO since 2014 (patient states this is her 7th) -multiple abdominal surgeries including appendectomy, cholecystectomy, laparotomy with CARITO, and back surgeries -NPO -NG tube remains to suction -pain control -continue IV fluids -Surgery consulted, appreciate recommendations -empiric antibiotics for nonspecific Ileitis on CT abdomen -hold Amitiza -follow cultures DEPRESSION: -continue home meds IBS: -hold Amitiza for now GERD: -continue PPI MIGRAINE: -no symptoms at this time LORENA: -not compliant with CPAP ALLERGIC RHINITIS: -continue home meds Current Inpatient Medications: Current Inpatient Medications Medications (Trade) Dose Ordered Sig/Toño Route Start Time Stop Time Status Last Admin Dose Admin Ioversol (Optiray 320) 100 ml UD PRN IV 01/10/17 18:00 01/14/17 17:59 Heparin Sodium (Porcine) (Heparin Sq 5000 Unit/0.5ml) 5,000 unit Q8H SQ 01/11/17 06:00 02/10/17 05:59 01/12/17 13:49 5,000 UNIT Acetaminophen (Tylenol Tab) 650 mg Q4H PRN PO 01/10/17 20:30 02/09/17 20:29 Ondansetron HCl (Zofran Inj) 4 mg Q6H PRN IV 01/10/17 20:30 02/09/17 20:29 Sodium Chloride 1,000 ml @ 125 mls/hr Q8H IV 01/10/17 22:00 02/09/17 21:59 01/12/17 13:56 125 MLS/HR Morphine Sulfate (MoRPHine SULFATE INJ) 2 mg Q3H PRN IV 01/10/17 20:45 01/24/17 20:44 Ciprofloxacin/ Dextrose 400 mg/ Prmx 200 ml @ 100 mls/hr Q12H IV 01/11/17 00:00 01/21/17 00:00 01/12/17 12:05 100 MLS/HR Metronidazole 500 mg/Prmx 100 ml @ 100 mls/hr Q8H IV 01/10/17 22:00 01/20/17 21:59 01/12/17 13:56 100 MLS/HR Loratadine (Claritin Tab) 10 mg DAILY PO 01/11/17 09:00 02/10/17 08:59 01/12/17 08:29 10 MG Montelukast Sodium (Singulair Tab) 10 mg HS PO 01/10/17 21:00 02/09/17 20:59 Pantoprazole Sodium (Protonix Tab) 40 mg HS PO 01/10/17 21:00 02/09/17 20:59 Venlafaxine HCl (effeXOR EXTENDED REL CAP) 225 mg DAILY PO 01/11/17 09:00 02/10/17 08:59 01/12/17 08:29 225 MG Senna (Senokot Syrup) 8.8 mg BID PO 01/12/17 09:00 02/11/17 08:59 01/12/17 08:31 8.8 MG
[2017-01-12] MEDS: MONTELUKAST SOD 10 MG TAB PO SCH (21:58)
[2017-01-12] MEDS: PANTOprazole SOD 40 MG TAB PO SCH (21:59)
[2017-01-12 23:26] VITALS: BP 108/72; PULSE 91; TEMP 36.9; O2SAT 97
[2017-01-13] MEDS: CIPROFLOXACIN / D5W 400 MG in PREMIXED IN D5W 200 ML IV SCH ×2 (00:17→11:56)
[2017-01-13] MEDS: METRONIDAZOLE / NSS 500 MG in PREMIXED NSS 100 ML IV SCH ×2 (05:58→13:52)
[2017-01-13] MEDS: SODIUM CHLORIDE 0.9% 1000ML 1,000 ML IV SCH ×2 (05:58→13:52)
[2017-01-13] MEDS: HEPARIN SOD 5000 UNIT/0.5 ML CARP SQ SCH ×2 (06:01→13:44)
[2017-01-13 06:58] VITALS: BP 120/76; PULSE 93; TEMP 37.1; O2SAT 99
[2017-01-13 07:48] LABS: BUN/CREATININE RATIO 9.4 (10-20); CALCIUM 7.9 mg/dl (8.5-10.1); CREATININE 0.49 mg/dl (0.60-1.20); MAGNESIUM 2.1 mg/dl (1.8-2.4); POTASSIUM 3.5 mmol/L (3.5-5.1)
[2017-01-13] MEDS: VENLAFAXINE HCL XR 75 MG CAPXR PO SCH (08:53)
[2017-01-13] MEDS: LORATADINE 10 MG TAB PO SCH (08:54)
[2017-01-13] MEDS: SENNA 8.8 MG/5 ML UDP PO SCH ×2 (08:54→08:55)
--- NOTE | 2017-01-13 12:21 | Surgery Progress Note ---
Surgery Progress Note Date of Service Jan 13, 2017. Subjective Post OP Day: HD # 3 + feeling well, + bowel movement, + flatus, No complaints, No nausea, No vomiting Objective Vital Signs: Date Time Temp Pulse Resp B/P (MAP) Pulse Ox O2 Delivery O2 Flow Rate FiO2 01/13/17 07:10 Room Air 01/13/17 06:58 37.1 93 18 120/76 (91) 99 Room Air 01/13/17 00:15 Room Air 01/12/17 23:26 36.9 91 16 108/72 (84) 97 Room Air 01/12/17 15:40 Room Air 01/12/17 15:02 36.7 87 18 116/76 (89) 96 Room Air Physical Exam: nasogastric drainage (bilious in the canister, clear bilious in the tube) General Appearance: WD/WN, + mild distress Head: normocephalic, atraumatic Neck: trachea midline Respiratory/Chest: no respiratory distress, no accessory muscle use Abdomen: normal bowel sounds, non tender, non distended, soft, no organomegaly , no pulsatile mass, + pertinent finding (midline laparotomy scar, and right mid transverse scar present) Laboratory Results: Results Past 24 Hours Test 01/13/17 06:50 Range/Units Sodium Level 143 136-145 mmol/L Potassium Level 3.5 3.5-5.1 mmol/L Chloride Level 109 98-107 mmol/L Carbon Dioxide Level 23 21-32 mmol/L Anion Gap 11.0 3-11 mmol/L Blood Urea Nitrogen 5 7-18 mg/dl Creatinine 0.49 0.60-1.20 mg/dl Est Creatinine Clear Calc Drug Dose 140.3 ml/min Estimated GFR () 138.3 Estimated GFR (Non- 119.3 BUN/Creatinine Ratio 9.4 10-20 Random Glucose 79 70-99 mg/dl Calcium Level 7.9 8.5-10.1 mg/dl Magnesium Level 2.1 1.8-2.4 mg/dl Assessment & Plan Partial SBO-resolved - vitals stable, afebrile - + bowel function ( multiple bowel movements and flatus) - minimal NGT output since clamp trial, clamp trial for 6 hours no nausea or vomiting or abdominal pain - no abdominal pain, abdomen soft with normal bowel sounds Plan: Discontinue NGT Start clear liquids and advance as tolerated Continue current medical management Given findings of Ileitis on CT scan patient should follow-up with metals analyst for further work-up (r/o inflammatory bowel disease). She states she had a colonoscopy in the last 2 years with Lianna which was normal Surgical services signing off, call with any questions or concerns Dr. Figueroa has seen and examined patient, agrees with above
[2017-01-13 14:57] VITALS: BP 117/72; PULSE 88; TEMP 37.1; O2SAT 100
[2017-01-13] MEDS ORDERED: LACTCHW3 PO (15:15)
[2017-01-13] MEDS ORDERED: CIPR1TAB10 PO (15:15)
[2017-01-13] MEDS ORDERED: METR-163 PO (15:15)
--- NOTE | 2017-01-13 15:22 | Discharge Instructions ---
Discharge Instructions Date of Service Jan 13, 2017. Admission Reason for Admission: Small Bowel Obstruction Discharge Discharge Diagnosis / Problem: Ileitis, Small bowel obstruction Discharge Goals Goal(s): Therapeutic intervention Activity Recommendations Activity Limitations: resume your previous activity . Instructions / Follow-Up Instructions / Follow-Up Please follow up at [facility] with your Primary Provider on , January 16 at 11AM for hospital follow up Please follow up with Surgery Dr. Figueroa in 2 weeks as recommended [facility] to call Sonia Ibarra for appointments: [phone] Current Hospital Diet Patient's current hospital diet: Clear Liquid Diet Discharge Diet Recommended Diet: Clear Liquid Diet (slowly advance diet as tolerated to full liquids, and eventually to solids tomorrow or Fri.) Pending Studies Studies pending at discharge: no Medical Emergencies . Who to Call and When: Medical Emergencies: If at any time you feel your situation is an emergency, please call 911 immediately. . Non-Emergent Contact Non-Emergency issues call your: Primary Care Provider . . "Provider Documentation" section prepared by Jyotsna Way. . VTE Core Measure Inpt VTE Proph given/why not?: SCD's
[2017-01-13 15:30] VITALS: BP 117/72; PULSE 88; TEMP 37.1; O2SAT 100
== END 2017-01-13 16:01 | disposition home or self-care (01) | DRG 390 ==
LOC: C.EDB 17:10 → C.MSN 20:32 → ENRESERV 20:53
PROVIDERS: ADMIT Internal Medicine; ATTEND Internal Medicine
DX: K56.699 Other intestinal obstruction unspecified as to partial versus complete obstruction (principal); K58.9 Irritable bowel syndrome, unspecified; F32.9 Major depressive disorder, single episode, unspecified; E78.5 Hyperlipidemia, unspecified; J30.9 Allergic rhinitis, unspecified; K21.9 Gastro-esophageal reflux disease without esophagitis; G47.33 Obstructive sleep apnea (adult) (pediatric); G43.909 Migraine, unspecified, not intractable, without status migrainosus; Z90.49 Acquired absence of other specified parts of digestive tract; Z80.3 Family history of malignant neoplasm of breast

== ENCOUNTER 2022-03-17 22:18 | Inpatient (IN) ==
[2022-03-17] MEDS ORDERED: MoRPHine SULFATE 2 MG/ML CARP IV STA (23:07)
[2022-03-17] MEDS ORDERED: ONDANSETRON INJ 2 MG/ML 2 ML VIAL IV STA (23:07)
--- NOTE | 2022-03-17 23:11 | Emergency Department Note ---
History of Present Illness General Chief complaint: Abdominal Pain Stated complaint: CHRONES, SEVERE ABDOMINAL PAIN, BACK PAIN Time Seen by Provider: 03/17/22 22:55 History of Present Illness Maximum Pain Intensity: 8 This is a 47-year-old female that presents to the emergency department via private vehicle accompanied by male with complaints of "Crohn's, severe abdominal pain, back pain". Patient has a history of Crohn's, IBS, gastroparesis, abdominal surgeries. Patient notes that her most recent abdominal surgery was this past July in [facility] where she had some mesh placed in the abdomen. She is on Stelara for Crohn's. She states that she was doing well up until today around 1 PM she developed upper abdominal discomfort. She notes persistence of this. No fevers, chills, nausea, vomiting, chest pain or shortness of breath. No blood in the stool. Patient does note that she is currently on antibiotics for a sinus infection. She follows locally with david for GI. Current pain 11/07. Home Medications Medication Instructions Recorded Confirmed Type cholecalciferol (vitamin D3) 250 250 mcg PO DAILY 02/20/22 03/17/22 History mcg (10,000 unit) capsule collagen (bovine) 100 % topical 1 applic topical DAILY 02/20/22 03/17/22 History powder epinephrine 0.3 mg/0.3 mL 0.3 mg (0.3 mL) IM Q4H PRN 02/20/22 03/17/22 Rx injection, auto-injector anaphylaxis #2 ea fluticasone propionate 50 1 spray intranasal DAILY #16 grams 02/20/22 03/17/22 Rx mcg/actuation nasal spray,suspension (Flonase Allergy Relief) montelukast 10 mg tablet 10 mg PO DAILY 02/20/22 03/17/22 History (Singulair) ondansetron HCl 4 mg tablet 4 mg PO Q8H PRN as directed 02/20/22 03/17/22 History pantoprazole 40 mg tablet,delayed 40 mg PO DAILY 02/20/22 03/17/22 History release pseudoephedrine HCl 120 mg 120 mg PO Q12H 02/20/22 03/17/22 History tablet,extended release (Sudafed 12 Hour) sertraline 100 mg tablet 150 mg PO DAILY 02/20/22 03/17/22 History trazodone 50 mg tablet 50 mg PO HS 02/20/22 03/17/22 History ustekinumab 90 mg/mL subcutaneous 90 mg subcut .EVERY 8 WEEKS 02/20/22 03/17/22 History syringe (Stelara) cefdinir 300 mg capsule 300 mg PO AMHS 03/17/22 03/17/22 History dicyclomine 10 mg capsule 10 mg PO QID PRN as directed 03/17/22 03/17/22 History zinc gluconate 50 mg tablet 50 mg PO DAILY 03/17/22 03/17/22 History Allergies Allergy/AdvReac Type Severity Reaction Status Date / Time bee venom protein (honey bee) Allergy Severe ANAPHYLAXIS Verified 03/17/22 22:46 amoxicillin AdvReac Mild nausea/vomi Verified 03/17/22 22:46 tting erythromycin base AdvReac Mild nausea/vomi Verified 03/17/22 22:46 tting Past Med/Surg History Medical History Allergic rhinitis Annual physical exam Anxiety with depression Bee sting allergy Crohn disease Dysplastic nevi Encounter for mammogram to establish baseline mammogram Subclinical hypothyroidism Ventral hernia Surgical History History of bowel resection 2016 History of cryosurgery Cryocautery of cervix History of excision of lesion Lap;excision of lesions lyse adhesions, small bowel resection; suspicious for Crohn's; stricturoplasty History of incisional hernia repair 08/13/21 Repair recurrent incisional hernia repair twice recurrent incisional hernia History of tonsillectomy and adenoidectomy 1999 Hx laparoscopic cholecystectomy 04/18/03 Hx of colonoscopy 03/02/21 Colonoscopy, diagnostic (rectum) (N/A) superficial ulcers terminal ileum c/w small bowel Crohns/recall 2 years/COLONOSCOPY FLEXIBLE PROXIMAL DIAGNOSTIC performed by Redd Lang MD at [facility] Family History Mother Cancer Neurological disorder Anxiety Depression Father Cancer bladder cancer FH: prostate cancer Kidney stones Anxiety Depression Melanoma Sister Cancer Breast cancer Stroke Heart disease Thyroid disorder Anxiety Depression Grandmother (Maternal) Heart disease Mental disorder Hyperlipidemia Grandmother (Maternal) Heart disease Mental disorder Brother Anxiety Depression Social History Smoking Status: Former smoker Hx Alcohol Use: No Hx Substance Use: No Preferred Language: Greenlandic Communication Ability: Effective Beliefs That Will Affect Care: None marital status: Current Living Situation: Family current occupational status: unemployed current occupation: homemaker How many Children do You have: 1 Feels Safe at Home: Yes Dental Care, Regularly: Yes Review of Systems A total of 10 systems reviewed and were otherwise negative Physical Exam Vital Signs Vital Signs - 24 hr 03/17/22 22:21 03/18/22 00:01 03/18/22 00:30 Temperature 37 C Temperature Source Temporal Artery Scan Pulse Rate 112 H 101 H 97 H Pulse Rate from SpO2 Sensor 101 H 96 H Pulse Rhythm Regular Pulse Strength Normal Respiratory Rate 18 20 26 H Respiratory Effort / Characteristics Non-Labored Spontaneous Respiratory Depth Normal Respiratory Pattern Regular Blood Pressure 118/82 133/87 139/84 Blood Pressure Mean 94 102 102 Blood Pressure Position Sitting Pulse Oximetry 95 97 95 Oxygen Delivery Method Room Air Room Air Room Air Sepsis Recent Fever Within 48 Hours No Sepsis New/Unexplained Change in Mental Status N/A Sepsis Action Taken by Nursing No Action Required 03/18/22 01:00 Temperature Temperature Source Pulse Rate 103 H Pulse Rate from SpO2 Sensor 102 H Pulse Rhythm Pulse Strength Respiratory Rate 18 Respiratory Effort / Characteristics Respiratory Depth Respiratory Pattern Blood Pressure 124/84 Blood Pressure Mean 97 Blood Pressure Position Pulse Oximetry 92 Oxygen Delivery Method Room Air Sepsis Recent Fever Within 48 Hours Sepsis New/Unexplained Change in Mental Status Sepsis Action Taken by Nursing VITAL SIGNS - Vital signs and nursing notes were reviewed. Stable and afebrile. GENERAL - 47-year-old female appearing her stated age who is in no acute distress. Communicates well with provider and answers questions appropriately. SKIN - Without rashes. No meningeal or petechial rash. HEAD - NC/AT. EYES - PERRL with EOMI bilaterally. Sclera anicteric. EARS - No deformities of external structures noted on gross examination bilaterally. NOSE - Midline and without cyanosis. No epistaxis or purulent drainage noted. MOUTH/OROPHARYNX - Without perioral cyanosis. NECK - Neck with FROM. No nuchal rigidity. LUNGS - Chest wall symmetric without accessory muscle use, intercostals retractions, or central cyanosis. Normal vesicular breath sounds CTA B/L. No wheezes, rales, or rhonchi appreciated. CARDIAC - RRR with S1/S2. No murmur, rubs, or gallops appreciated. ABDOMEN - Abdominal contour normal without pulsations or visible masses. BS normoactive all four quadrants. There is upper abdominal tenderness to palpation. No guarding or rigidity. No palpable masses, hepatosplenomegaly, or ascites noted. EXTREMITIES - No clubbing or peripheral cyanosis. +5/5 strength noted in UE/LE bilaterally. NEUROLOGIC - Cranial nerves II through XII grossly intact. PSYCH - A&Ox3 and cooperates fully with examiner. Pt is very pleasant and interacts well with examiner. Course Administered Medications Potassium Chloride (K Ander / Wtr) 10 meq in 100 mls @ 100 mls/hr IV Q1H CASEY; Protocol Stop: 03/18/22 03:29 Last Admin: 03/18/22 02:51 Dose: 100 mls/hr Documented By: Infusion: 03/18/22 02:49 Dose: 0 mls/hr Documented By: Admin: 03/18/22 01:46 Dose: 100 mls/hr Documented By: CONNIE Discontinued Medications Magnesium Sulfate/Dextrose (Magnesium Sulfate / D5w) 1 gm in 100 mls @ 200 mls/hr IV Q30M CASEY Stop: 03/18/22 02:16 Last Admin: 03/18/22 02:50 Dose: 200 mls/hr Documented By: Infusion: 03/18/22 02:49 Dose: 0 mls/hr Documented By: Admin: 03/18/22 01:46 Dose: 200 mls/hr Documented By: CONNIE Ioversol (Optiray 350 100ml) 100 ml IV ONCE ONE Stop: 03/18/22 01:40 Last Admin: 03/18/22 01:39 Dose: 84 ml Documented By: VIVEK Morphine Sulfate (Morphine Sulfate 2 Mg/Ml Carp) 2 mg IV NOW STA Stop: 03/17/22 23:08 Last Admin: 03/17/22 23:59 Dose: 2 mg Documented By: CONNIE Morphine Sulfate (Morphine Sulfate 2 Mg/Ml Carp) 2 mg IV NOW STA Stop: 03/18/22 01:17 Last Admin: 03/18/22 01:45 Dose: 2 mg Documented By: CONNIE Ondansetron HCl (Ondansetron Inj 2 Mg/Ml 2 Ml Vial) 4 mg IV NOW STA Stop: 03/17/22 23:08 Last Admin: 03/17/22 23:59 Dose: 4 mg Documented By: CONNIE Medical Decision Making Laboratory Data Result diagrams: 03/17/22 23:30 03/17/22 23:30 Lab Results 03/17/22 03/17/22 03/17/22 Range/Units 23:25 23:25 23:30 WBC 8.46 (4.8-10.8) K/ul RBC 3.90 L (3.93-5.22) M/uL Hgb 11.2 L (12.0-16.0) g/dl Hct 34.3 (34.1-44.9) % MCV 87.9 (80.0-100.0) fL MCH 28.7 (25.0-34.0) pg MCHC 32.7 (32.0-36.0) g/dL RDW Std Deviation 43.8 (36.4-46.3) fL RDW Coeff of Oc 13.8 (11.5-14.5) % Plt Count 240 (130-400) K/uL MPV 8.8 L (9.4-12.3) fL Immature Gran % (Auto) 0.2 % Neut % (Auto) 65.4 % Lymph % (Auto) 24.9 % [place] % (Auto) 8.9 % Eos % (Auto) 0.4 % Baso % (Auto) 0.2 % Neut # (Auto) 5.53 (1.4-6.5) K/uL Lymph # (Auto) 2.11 (1.2-3.4) K/uL [place] # (Auto) 0.75 (0.24-0.82) K/uL Eos # (Auto) 0.03 (0-0.50) K/uL Baso # (Auto) 0.02 (0-0.2) K/uL Immature Gran # (Auto) 0.02 (0.00-0.02) K/uL Sodium (136-145) mmol/L Potassium (3.5-5.1) mmol/L Chloride (98-107) mmol/L Carbon Dioxide (21-32) mmol/L Anion Gap (3-11) BUN (6-23) mg/dl Creatinine (0.6-1.2) mg/dl Est Cr Clr Drug Dosing ml/min Est GFR ( Amer) ml/min Est GFR (Non-Af Amer) ml/min BUN/Creatinine Ratio (10-20) Glucose (70-99(Fasting)) mg/dl Calcium (8.5-10.1) mg/dl Magnesium (1.7-2.4) mg/dl Total Bilirubin (0.2-1.0) mg/dl AST (13-39) U/L ALT (7-52) U/L Alkaline Phosphatase (34-104) U/L Troponin I High Sens (0-14) pg/ml Total Protein (6.0-8.3) gm/dl Albumin (3.4-5.0) gm/dl Globulin (2.5-4.0) gm/dl Albumin/Globulin Ratio (0.9-2) Lipase (11-82) U/L Urine Color Yellow Urine Appearance Clear (Clear) Urine pH 6.0 (4.5-7.5) Ur Specific [place] 1.022 (1.000-1.030) Urine Protein Trace H (Negative) Urine Glucose (UA) Negative (Negative) Urine Ketones Trace H (Negative) Urine Blood Negative (Negative) Urine Nitrite Negative (Negative) Urine Bilirubin Negative (Negative) Urine Urobilinogen Negative (Negative) Ur Leukocyte Esterase Negative (Negative) Urine WBC (Auto) 1-5 (0-5) /hpf Urine RBC (Auto) 0-4 (0-4) /hpf U Hyaline Cast (Auto) 5-10 H (0-5) /lpf U Epithel Cells (Auto) >30 H (0-5) /lpf Urine Bacteria (Auto) Negative (Negative) Urine Test Negative (Negative) SARS-CoV-2 (PCR) (Negative) Influenza Type A (PCR) (Neg) Influenza Type B (PCR) (Neg) RSV (RT-PCR) (Neg) 03/17/22 03/17/22 Range/Units 23:30 23:32 WBC (4.8-10.8) K/ul RBC (3.93-5.22) M/uL Hgb (12.0-16.0) g/dl Hct (34.1-44.9) % MCV (80.0-100.0) fL MCH (25.0-34.0) pg MCHC (32.0-36.0) g/dL RDW Std Deviation (36.4-46.3) fL RDW Coeff of Oc (11.5-14.5) % Plt Count (130-400) K/uL MPV (9.4-12.3) fL Immature Gran % (Auto) % Neut % (Auto) % Lymph % (Auto) % [place] % (Auto) % Eos % (Auto) % Baso % (Auto) % Neut # (Auto) (1.4-6.5) K/uL Lymph # (Auto) (1.2-3.4) K/uL [place] # (Auto) (0.24-0.82) K/uL Eos # (Auto) (0-0.50) K/uL Baso # (Auto) (0-0.2) K/uL Immature Gran # (Auto) (0.00-0.02) K/uL Sodium 142 (136-145) mmol/L Potassium 2.6 L (3.5-5.1) mmol/L Chloride 103 (98-107) mmol/L Carbon Dioxide 32 (21-32) mmol/L Anion Gap 7 (3-11) BUN 10 (6-23) mg/dl Creatinine 0.65 (0.6-1.2) mg/dl Est Cr Clr Drug Dosing 100.6 ml/min Est GFR ( Amer) 120.8 ml/min Est GFR (Non-Af Amer) 104.3 ml/min BUN/Creatinine Ratio 15.4 (10-20) Glucose 101 H (70-99(Fasting)) mg/dl Calcium 7.9 L (8.5-10.1) mg/dl Magnesium 1.5 L (1.7-2.4) mg/dl Total Bilirubin 0.4 (0.2-1.0) mg/dl AST 12 L (13-39) U/L ALT 9 (7-52) U/L Alkaline Phosphatase 72 (34-104) U/L Troponin I High Sens 5.0 (0-14) pg/ml Total Protein 5.7 L (6.0-8.3) gm/dl Albumin 3.2 L (3.4-5.0) gm/dl Globulin 2.5 (2.5-4.0) gm/dl Albumin/Globulin Ratio 1.3 (0.9-2) Lipase 29 (11-82) U/L Urine Color Urine Appearance (Clear) Urine pH (4.5-7.5) Ur Specific [place] (1.000-1.030) Urine Protein (Negative) Urine Glucose (UA) (Negative) Urine Ketones (Negative) Urine Blood (Negative) Urine Nitrite (Negative) Urine Bilirubin (Negative) Urine Urobilinogen (Negative) Ur Leukocyte Esterase (Negative) Urine WBC (Auto) (0-5) /hpf Urine RBC (Auto) (0-4) /hpf U Hyaline Cast (Auto) (0-5) /lpf U Epithel Cells (Auto) (0-5) /lpf Urine Bacteria (Auto) (Negative) Urine Test (Negative) SARS-CoV-2 (PCR) NEGATIVE (Negative) Influenza Type A (PCR) Negative (Neg) Influenza Type B (PCR) Negative (Neg) RSV (RT-PCR) Negative (Neg) Imaging Data Radiologist's Impression: CT ABDOMEN & PELVIS With Contrast: Comparison is made to a prior study dated 09/05/17. There is long segment wall thickening and perienteric inflammatory change involving an approximately 30 cm segment of small bowel (image 22 series 300). Centrally, there is an area of narrowing measuring up to 2.2 cm in length (image 23 series 300). There is no associated obstruction. There are some adjacent loops of small bowel which appear inflamed, likely reactive. There is a small volume of fluid in the right paracolic gutter, likely reactive. The patient is status post cholecystectomy. There is a nonobstructing right lower pole adrenal calculus. There are postsurgical changes of anterior fusion at L5-S1. Radiologist: Paddy Zaidi MD Study ready at 01:53 and initial results transmitted at 01:57 MDM Narrative Patient was seen and evaluated as above in room C04. Review was performed of nursing notes and vital signs. I did review pertinent previous visits and patient history. After obtaining a thorough history and physical examination the above work up was performed. Patient presents to us today with abdominal pain. She clinically appears well and nontoxic. Vital signs stable. Options of care were discussed with the patient. IV access was established. Labs were drawn. No leukocytosis. Minor anemia noted with hemoglobin of 11.2. Hypokalemia 2.6. Hypocalcemia 7.9. Hypomagnesemia 1.5. Troponin within normal range. Lipase normal. Urinalysis does not suggest infection. UPT negative. COVID, flu and RSV testing negative. EKG reveals normal sinus rhythm at a rate of 93 bpm. QTc 479. QRS 70[address] CT scan results as above. No evidence of surgical abdomen at this time. With the patient having ongoing abdominal discomfort in the setting of hypokalemia and hypomagnesemia I do believe that further evaluation and management in the inpatient setting is warranted. Repletion of the electrolytes were ordered here in the ED. Case discussed with the hospitalist service. Please refer to further documentation regarding her stay. Patient amenable to plan of care. During her time here in the ED she had received IV analgesics and IV antiemetics. Case was discussed with the attending physician. GCS: 15 In the evaluation and treatment of this patient the following differential diagnoses were entertained: Acute abdomen, bowel obstruction, UTI, pyelonephritis, [place], PE, dissection, pericarditis, pancreatitis, among others. Impression & Plan Acute upper abdominal pain, Acute hypokalemia, Hypomagnesemia Discharge Plan Visit Data Chief Complaint: Abdominal Pain Stated Complaint: CHRONES, SEVERE ABDOMINAL PAIN, BACK PAIN ED Provider: Stu Valdez ED Midlevel Provider: Foster Mendosa Discharge Problem: Acute upper abdominal pain, Acute hypokalemia, Hypomagnesemia Patient Disposition: Home - Self-Care Condition: Good Forms Stand Alone Forms: [facility], [facility] Emergency Department, Important Visit Information Prescriptions Prescriptions: No Action Stelara 90 mg/mL syringe 90 mg subcut .EVERY 8 WEEKS Rx Instructions: Inject under the skin 90 mg every 8 weeks montelukast [Singulair] 10 mg tablet 10 mg PO DAILY pantoprazole 40 mg tablet,delayed release (DR/EC) 40 mg PO DAILY trazodone 50 mg tablet 50 mg PO HS pseudoephedrine HCl [Sudafed 12 Hour] 120 mg tablet extended release 120 mg PO Q12H cholecalciferol (vitamin D3) 250 mcg (10,000 unit) capsule 250 mcg PO DAILY epinephrine 0.3 mg/0.3 mL auto-injector 0.3 mg IM Q4H PRN (Reason: anaphylaxis) Qty: 2 0RF fluticasone propionate [Flonase Allergy Relief] 50 mcg/actuation spray,suspension 1 spray intranasal DAILY Qty: 16 2RF Rx Instructions: administer into each nostril ondansetron HCl 4 mg tablet 4 mg PO Q8H PRN (Reason: as directed) collagen (bovine) 100 % powder 1 applic topical DAILY Rx Instructions: apply a 1/4 inches inch thick layer, do not pack tightly; cover using a non- adherent dressing sertraline 100 mg tablet 150 mg PO DAILY cefdinir 300 mg capsule 300 mg PO AMHS Rx Instructions: ordered 03/15/22 for 10 days zinc gluconate 50 mg Tablet 50 mg PO DAILY dicyclomine 10 mg capsule 10 mg PO QID PRN (Reason: as directed) Referrals Referrals: Landry Menon MD [Primary Care Provider] -
[2022-03-17 23:53] LABS: Basophils # (auto) 0.02 K/uL (0-0.2); Basophils % (auto) 0.2 %; Eosinophils # (auto) 0.03 K/uL (0-0.50); Eosinophils % (auto) 0.4 %; Hematocrit (blood only) 34.3 % (34.1-44.9); Hemoglobin 11.2 g/dl (12.0-16.0); Immature Granulocytes # (auto) 0.02 K/uL (0.00-0.02); Immature Granulocytes % (auto) 0.2 %; Lymphocytes # (auto) 2.11 K/uL (1.2-3.4); Lymphocytes % (auto) 24.9 %; Mean Corpuscular Hemoglobin 28.7 pg (25.0-34.0); Mean Corpuscular Hgb Conc 32.7 g/dL (32.0-36.0); Mean Corpuscular Volume 87.9 fL (80.0-100.0); Mean Platelet Volume 8.8 fL (9.4-12.3); Monocytes # (auto) 0.75 K/uL (0.24-0.82); Monocytes % (auto) 8.9 %; Neutrophils # (auto) 5.53 K/uL (1.4-6.5); Neutrophils % (auto) 65.4 %; Platelet Count 240 K/uL (130-400); RDW Coefficient of Variation 13.8 % (11.5-14.5); RDW Standard Deviation 43.8 fL (36.4-46.3); White Blood Count 8.46 K/ul (4.8-10.8)
[2022-03-17 23:57] LABS: Appearance Urine Clear (Clear); Bacteria Urine Automated Negative (Negative); Bilirubin Urine Negative (Negative); Blood Urine Negative (Negative); Color Urine Yellow; Epithelial Cell Urine Auto >30 /lpf (0-5); Glucose Urine UA Negative (Negative); Ketones Urine Trace (Negative); Leukocyte Esterase Urine Negative (Negative); Nitrite Urine Negative (Negative); Pregnancy Test, Urine Negative (Negative); Protein Urine Trace (Negative); RBC Urine Automated 0-4 /hpf (0-4); Specific Gravity Urine 1.022 (1.000-1.030); Urobilinogen Urine Negative (Negative)
[2022-03-18 00:26] LABS: Albumin Globulin Ratio 1.3 (0.9-2); Albumin Level 3.2 gm/dl (3.4-5.0); BUN Creatinine Ratio 15.4 (10-20); Bilirubin,Total 0.4 mg/dl (0.2-1.0); Calcium 7.9 mg/dl (8.5-10.1); Creatinine Clr Calc Pharmacy 100.6 ml/min; Est GFR (African American) 120.8 ml/min; Est GFR (Non-African American) 104.3 ml/min; Globulin 2.5 gm/dl (2.5-4.0); Magnesium 1.5 mg/dl (1.7-2.4); Potassium 2.6 mmol/L (3.5-5.1); Total Protein 5.7 gm/dl (6.0-8.3)
[2022-03-18 00:33] LABS: Influenza A virus by PCR Negative (Neg); Influenza B virus by PCR Negative (Neg); RSV by PCR Negative (Neg); SARS CoV2 RNA(COVID-19) Ceph NEGATIVE (Negative)
[2022-03-18] MEDS ORDERED: MoRPHine SULFATE 2 MG/ML CARP IV STA (01:16)
[2022-03-18] MEDS ORDERED: OPTIRAY 350 100ml IV ONE (01:39)
[2022-03-18] MEDS: POTASSIUM CHLORIDE / WTR 10 MEQ/100 ML PLCT IV SCH ×6 (01:46→11:37)
[2022-03-18] MEDS: MAGNESIUM SULFATE / D5W 1 GM/100 ML BAG IV SCH ×2 (01:46→02:50)
--- NOTE | 2022-03-18 03:52 | History & Physical Report ---
Date of Service March 18, 2022 Assessment & Plan (1) Acute upper abdominal pain: Plan: Yari Newberry is a 47-year-old female with past medical history of Crohn's on ustekinumab who presented due to upper abdominal pain. Acute abdominal pain/Crohn's disease Patient on ustekinumab for Crohn's Follows with [facility] plans for visit to [facility] for second opinion in March Currently no significant stool changes or bloody stools, does have chronic diarrhea Symptoms at this time seem relatively mild, no obvious role for steroids Will consult GI for further guidance Stool PCR panel and C. difficile ordered to r/o infection Antiemetics and analgesics as needed Dicyclomine 4 times daily as needed Holding cefdinir Clear liquid diet for now, dietary consult Electrolyte abnormalities Potassium 2.6 and magnesium 1.5 on arrival In ED received and 2 KCl riders and 2 g mag sulfate Ordered additional KCl 40 mEq Recheck potassium and magnesium levels with a.m. labs Bacterial rhinosinusitis Started cefdinir 300 mg twice daily on Friday evening Antibiotics could potentially be contributing to her abdominal symptoms Hold at this time until further guidance from GI GERD Continue home pantoprazole Anxiety/depression Continue home sertraline daily and trazodone at bedtime DVT prophylaxis: SCDs Diet: Clear liquids, dietary consult, LR at 80 cc/h x 1 bag Dispo: MedSurg CODE STATUS: Full (2) Acute hypokalemia: (3) Hypomagnesemia: (4) Crohn disease: (5) GERD (gastroesophageal reflux disease): (6) Anxiety with depression: History of Present Illness Primary Care Provider: Landry Menon MD Yari Newberry is a 47-year-old female with past medical history of Crohn's on ustekinumab who presented due to abdominal pain starting yesterday early in the afternoon. She reports mainly upper abdominal pain, mild nausea, but no vomiting. She notes that she does have chronic diarrhea, which has been stable for her no recent changes, no bloody stools. Of note, the patient started taking cefdinir for a bacterial rhinosinusitis on Friday evening. She thinks there may be a correlation between the antibiotics and the onset of her symptoms. She has no fever, chills, chest pain, palpitations, shortness of breath, headache, dizziness, weakness, numbness, myalgias, arthralgias. In the ED, had CT A/P showing: "long segment wall thickening and perienteric inflammatory change involving an approximately 30 cm segment of small bowel. Centrally there is an area of narrowing measuring up to 2.2 cm in length. There is no associated obstruction. There are some adjacent loops of small bowel which appear inflamed, likely reactive. There is a small volume of fluid in the right paracolic gutter, likely reactive. Patient is status postcholecystectomy. There is a nonobstructing right lower pole of renal calculus. There are postsurgical changes of anterior fusion at L5-S1." Lab work showed hypokalemia of 2.6 and hypomagnesemia of 1.5. Calcium was mildly decreased at 7.9. Hemoglobin of 11.2, which is stable for the patient. Allergies Allergy/AdvReac Type Severity Reaction Status Date / Time bee venom protein (honey bee) Allergy Severe ANAPHYLAXIS Verified 03/17/22 22:46 amoxicillin AdvReac Mild nausea/vomi Verified 03/17/22 22:46 tting erythromycin base AdvReac Mild nausea/vomi Verified 03/17/22 22:46 tting Home Medications Medication Instructions Recorded Confirmed Type cholecalciferol (vitamin D3) 250 250 mcg PO DAILY 02/20/22 03/17/22 History mcg (10,000 unit) capsule collagen (bovine) 100 % topical 1 applic topical DAILY 02/20/22 03/17/22 History powder epinephrine 0.3 mg/0.3 mL 0.3 mg (0.3 mL) IM Q4H PRN 02/20/22 03/17/22 Rx injection, auto-injector anaphylaxis #2 ea fluticasone propionate 50 1 spray intranasal DAILY #16 grams 02/20/22 03/17/22 Rx mcg/actuation nasal spray,suspension (Flonase Allergy Relief) montelukast 10 mg tablet 10 mg PO DAILY 02/20/22 03/17/22 History (Singulair) ondansetron HCl 4 mg tablet 4 mg PO Q8H PRN as directed 02/20/22 03/17/22 History pantoprazole 40 mg tablet,delayed 40 mg PO DAILY 02/20/22 03/17/22 History release pseudoephedrine HCl 120 mg 120 mg PO Q12H 02/20/22 03/17/22 History tablet,extended release (Sudafed 12 Hour) sertraline 100 mg tablet 150 mg PO DAILY 02/20/22 03/17/22 History trazodone 50 mg tablet 50 mg PO HS 02/20/22 03/17/22 History ustekinumab 90 mg/mL subcutaneous 90 mg subcut .EVERY 8 WEEKS 02/20/22 03/17/22 History syringe (Stelara) cefdinir 300 mg capsule 300 mg PO AMHS 03/17/22 03/17/22 History dicyclomine 10 mg capsule 10 mg PO QID PRN as directed 03/17/22 03/17/22 History zinc gluconate 50 mg tablet 50 mg PO DAILY 03/17/22 03/17/22 History Past Med/Surg History Medical History Allergic rhinitis Annual physical exam Anxiety with depression Bee sting allergy Crohn disease Dysplastic nevi Encounter for mammogram to establish baseline mammogram Subclinical hypothyroidism Ventral hernia Surgical History History of bowel resection 2016 History of cryosurgery Cryocautery of cervix History of excision of lesion Lap;excision of lesions lyse adhesions, small bowel resection; suspicious for Crohn's; stricturoplasty History of incisional hernia repair 08/13/21 Repair recurrent incisional hernia repair twice recurrent incisional hernia History of tonsillectomy and adenoidectomy 1999 Hx laparoscopic cholecystectomy 04/18/03 Hx of colonoscopy 03/02/21 Colonoscopy, diagnostic (rectum) (N/A) superficial ulcers terminal ileum c/w small bowel Crohns/recall 2 years/COLONOSCOPY FLEXIBLE PROXIMAL DIAGNOSTIC performed by Redd Lang MD at [facility] Family History Mother Cancer Neurological disorder Anxiety Depression Father Cancer bladder cancer FH: prostate cancer Kidney stones Anxiety Depression Melanoma Sister Cancer Breast cancer Stroke Heart disease Thyroid disorder Anxiety Depression Grandmother (Maternal) Heart disease Mental disorder Hyperlipidemia Grandmother (Maternal) Heart disease Mental disorder Brother Anxiety Depression Social History Smoking Status: Former smoker Hx Alcohol Use: No Hx Substance Use: No Preferred Language: Ukrainian Communication Ability: Effective Painter Tumbling Barrel Required: No Beliefs That Will Affect Care: None marital status: Current Living Situation: Spouse current occupational status: unemployed current occupation: homemaker How many Children do You have: 1 Feels Safe at Home: Yes Safety Concerns: Feels Safe At This Time Dental Care, Regularly: Yes Assistive Devices: Glasses Assistive Devices Comment: reading glasses. Review of Systems Review of Systems: Per HPI Physical Exam Physical Exam: GENERAL: A&Ox3. NAD. HEENT: PERRL, EOMI. Moist mucous membranes. CHEST/LUNGS: CTAB A/P. No crackles, wheezes, rales, rhonchi. HEART: RRR. No m/g/r. No carotid bruits. ABDOMEN: Diffusely tender to palpation, more notably in the upper abdomen. Nondistended. No rebound, guarding, rigidity. Hypoactive bowel sounds. EXTREMITIES: No cyanosis, no clubbing, no edema SKIN: Warm and dry. No rashes or lesions. PSYCHIATRIC: Euthymic affect, no SI, no pressured speech, no hallucinations NEUROLOGIC: No FND. Results & Data Results & Data ([facility]) Vital Signs (Past 12 Hours) Vital Signs Temp Pulse Resp BP Pulse Ox O2 Del Method 03/18/22 03:30 101 H 19 106/75 94 Room Air 03/18/22 02:30 110 H 20 103/73 92 Room Air 03/18/22 02:00 103 H 21 120/82 90 Room Air 03/18/22 01:00 103 H 18 124/84 92 Room Air 03/18/22 00:30 97 H 26 H 139/84 95 Room Air 03/18/22 00:01 101 H 20 133/87 97 Room Air 03/17/22 22:21 37 C 112 H 18 118/82 95 Room Air Code Status & VTE Plan VTE Prophylaxis Plan VTE Prophylaxis will be ordered: Yes Supervising Physician Co-Signing Physician Notes Patient seen and examined, chart reviewed, case discussed with Dr. Carmel Diaz and I agree with the assessment and plan as above. Resident Activity Tracking Resident Involvement: Resident Care Provided Care Provided: Adult Hospital Medicine
[2022-03-18] MEDS ORDERED: EPINEPHrine ADULT AUTO-INJECT 0.3 MG SYR IM PRN (05:07)
[2022-03-18] MEDS ORDERED: ONDANSETRON INJ 2 MG/ML 2 ML VIAL IV PRN (05:07)
[2022-03-18] MEDS ORDERED: LACTATED RINGER'S 1,000 ML IV SCH (05:07)
[2022-03-18] MEDS: ACETAMINOPHEN 325 MG TAB PO PRN ×2 (05:48→15:23)
--- NOTE | 2022-03-18 07:05 | Billing Data ---
Date of Service March 18, 2022 Coding Level of Care Code 45241 Initial Inpt Care Lvl 3
[2022-03-18] MEDS: FLUTICASONE PROPIONATE NA SPR 16 GM BTL SCH (08:49)
[2022-03-18] MEDS: SERTRALINE HCL 50 MG TABLET PO SCH (08:49)
[2022-03-18] MEDS: MONTELUKAST SODIUM 10 MG TABLET PO SCH (08:50)
[2022-03-18] MEDS: PANTOprazole 40 MG TAB PO SCH (08:50)
[2022-03-18] MEDS: DICYCLOMINE HCL 10 MG CAP PO PRN (08:50)
[2022-03-18] MEDS: CHOLECALCIFEROL 5,000 UNITS 125 MCG TAB PO SCH (08:50)
[2022-03-18] MEDS ORDERED: NON-FORMULARY MEDICATION (Zinc Gluconate 50 mg Tablet) PO SCH (09:00)
--- NOTE | 2022-03-18 09:26 | CT Scan Report ---
CT SCAN OF THE ABDOMEN AND PELVIS WITH IV CONTRAST CLINICAL HISTORY: Upper abdominal pain. Crohn's disease. COMPARISON STUDY: Abdominal CT dated 09/05/2017. TECHNIQUE: Following the IV administration of 84 cc of Optiray 350, CT scan of the abdomen and pelvi s is performed from the lung bases to the proximal femora. Images are reviewed in the axial, sagittal , and coronal planes. IV contrast was administered without complication. Oral contrast was utilized. A dose lowering technique was utilized adhering to the principles of ALARA. CT DOSE: 356.20 mGy.cm FINDINGS: Lung bases: The heart is normal in size and without pericardial effusion. There are trace pleural eff usions with dependent atelectasis. A small hiatal hernia is noted. Liver: The contrast-enhanced liver is enlarged, measuring 19 cm in length. The liver demonstrates dif fusely diminished attenuation indicating steatosis. There is no intrahepatic biliary ductal dilatatio n. The hepatic veins and portal veins are patent. Gallbladder: Surgically absent noting clips in the gallbladder fossa. Spleen: Normal in size and attenuation. Pancreas: Unremarkable. Adrenal glands: Unremarkable. Kidneys: The contrast enhanced kidneys are normal in size and without hydronephrosis. The kidneys enh ance symmetrically. A 2.9 cm cyst is noted in the left upper pole. There is a 5 mm nonobstructing cruzito culus seen on the right and a 3 mm calculus is noted on the left. Abdominal vasculature: The abdominal aorta is normal in course and caliber. Bowel: There is evidence of previous small bowel resections. Focal dilatation abdomen the anastomotic sites in the left midabdomen is likely related to denervation. Submucosal fat deposition throughout the small bowel suggests chronic inflammation. There is a long segment of wall thickening and mucosal hyperemia seen involving the distal/terminal ileum with surrounding inflammation and fluid. The appe arance is consistent with a nonspecific enteritis. The upstream small bowel loops are mildly distende d and fluid-filled measuring up to 2.8 cm. This suggests ileus. No transition point is seen and there is no high-grade obstruction. Enteric contrast reaches the distal small bowel. There is no clear CT evidence of stricture or abscess. Mild fecal retention is seen throughout the colon. The appendix is not identified and reported surgically absent. Peritoneum: No intraperitoneal free air is seen. There is a small volume of interloop fluid/ascites. A midline surgical scar is noted. Lymphadenopathy: There are numerous prominent mesenteric lymph nodes which measure up to 8 mm short a xis. Pelvic viscera: The bladder is distended but otherwise normal in appearance. The uterus and adnexa ar e normal as imaged. There is free fluid in the cul-de-sac. Skeletal structures: No lytic or blastic lesions are seen. Postoperative change is seen at the lumbos acral junction. IMPRESSION: 1. There is evidence of a nonspecific enteritis involving the mid to distal small bowel. Inflammatory bowel disease/active Crohn's disease is favored given the clinical history. 2. Mildly distended loops of proximal small bowel likely represent ileus. Enteric contrast reaches th e distal small bowel, and there is no transition point to suggest high-grade obstruction. 3. There is evidence of previous small bowel resections. 4. There is interloop fluid/a small volume of abdominopelvic ascites. 5. Prominent mesenteric lymph nodes are likely reactive. 6. Hepatomegaly and hepatic steatosis. 7. Trace pleural effusions. 8. Bilateral nephrolithiasis. 9. Additional findings as above. ACT 112: Negative or not required by law. Electronically signed by: Landry Wilkins M.D. 03/18/2022 9:24 AM
[2022-03-18] MEDS ORDERED: ALUMINUM/MAGNESIUM SUSP 30 ML UDC PO PRN (09:36)
--- NOTE | 2022-03-18 10:19 | Gastrointestinal Consultation ---
Date of Consultation March 18, 2022 Assessment & Plan (1) Crohn disease: (2) Diarrhea: Plan Stools for C-diff and culture. Will get Sed, CRP. Consider NG if nausea/vomiting or significant upper pain/fullness. For today would keep NPO except sips of water and ice chips. If stools negative for infection, will treat with a prednisone taper. Would hold on steroids until the stool studies are back. Supervising Physician Co-Signing Physician Notes I have seen and examined the patient and discussed the management with KOBY Person. 47 yo fm with a history of crohn's disease s/p 17 cm resection of ileum at [place], on remicade since 2016, now on stelara since 11/19, admitted with abd pain. Imaging suggestive of enteritis, ? ileus. She has chronic diarrhea since her surgery. pain is still present 5-6/10 non localized. Labs reviewed- cbc normla, low k and mg. Imaging also reviewed Labs with slight distension but soft, pe as per above Given diarrhea- chronic nature may be bile acid given prior ileal resection, would rule out acute infection with c diff and stool cultures. Consider ng if no bm and distension of her belly given ? ileus Agree with further plan of care. If no active infection, will consider steroid taper. History of Present Illness Reason for Consultation: Crohn's Attending Physician: Huan Guillory MD History of Present Illness Ms. Yari Muniz, is a 47 yr old female pt of Dr. Menon w a hx of hypothyroidism, impared glucose fasting who has had small bowel Crohn's since 2016, undergoing a ileocolonic resection w removal of 17cm of small bowel at [facility] at the time of dx. She was initially on Remicade but has been having flare symptoms (up to 7loose/liquid BMs/day) and pain since October having completed on 6wk prednisone taper w/o much effect. She was changed to Stelara, having r eceived 3 infusions, most recently 02/01, due for next on 03/28. Was having a good response to Stelara, until yesterday, when she began to experienced diffuse abd pain and distention beginning around 1PM, worsening through the evening. She presented to [facility] ED where CT w IV and oral contrast suggested Ti involvement and w few distended small bowel loops upstream. She is hemodynamically stable, still w moderate abd discomfort and mild/soft abd distention while NPO. Stool studies are ordered but not yet collected. Most recent colonoscopy Feb [address] Lang A few superficial ulcers in the terminal ileum c/w small bowel Crohn's disease. Allergies Allergy/AdvReac Type Severity Reaction Status Date / Time bee venom protein (honey bee) Allergy Severe ANAPHYLAXIS Verified 03/17/22 22:46 amoxicillin AdvReac Mild nausea/vomi Verified 03/17/22 22:46 tting erythromycin base AdvReac Mild nausea/vomi Verified 03/17/22 22:46 tting Home Medications Medication Instructions Recorded Confirmed Type cholecalciferol (vitamin D3) 250 250 mcg PO DAILY 02/20/22 03/17/22 History mcg (10,000 unit) capsule collagen (bovine) 100 % topical 1 applic topical DAILY 02/20/22 03/17/22 History powder epinephrine 0.3 mg/0.3 mL 0.3 mg (0.3 mL) IM Q4H PRN 02/20/22 03/17/22 Rx injection, auto-injector anaphylaxis #2 ea fluticasone propionate 50 1 spray intranasal DAILY #16 grams 02/20/22 03/17/22 Rx mcg/actuation nasal spray,suspension (Flonase Allergy Relief) montelukast 10 mg tablet 10 mg PO DAILY 02/20/22 03/17/22 History (Singulair) ondansetron HCl 4 mg tablet 4 mg PO Q8H PRN as directed 02/20/22 03/17/22 History pantoprazole 40 mg tablet,delayed 40 mg PO DAILY 02/20/22 03/17/22 History release pseudoephedrine HCl 120 mg 120 mg PO Q12H 02/20/22 03/17/22 History tablet,extended release (Sudafed 12 Hour) sertraline 100 mg tablet 150 mg PO DAILY 02/20/22 03/17/22 History trazodone 50 mg tablet 50 mg PO HS 02/20/22 03/17/22 History ustekinumab 90 mg/mL subcutaneous 90 mg subcut .EVERY 8 WEEKS 02/20/22 03/17/22 History syringe (Stelara) cefdinir 300 mg capsule 300 mg PO AMHS 03/17/22 03/17/22 History dicyclomine 10 mg capsule 10 mg PO QID PRN as directed 03/17/22 03/17/22 History zinc gluconate 50 mg tablet 50 mg PO DAILY 03/17/22 03/17/22 History Patient History Medical History Allergic rhinitis Annual physical exam Anxiety with depression Bee sting allergy Crohn disease Dysplastic nevi Encounter for mammogram to establish baseline mammogram Subclinical hypothyroidism Ventral hernia Surgical History History of bowel resection 2016 History of cryosurgery Cryocautery of cervix History of excision of lesion Lap;excision of lesions lyse adhesions, small bowel resection; suspicious for Crohn's; stricturoplasty History of incisional hernia repair 08/13/21 Repair recurrent incisional hernia repair twice recurrent incisional hernia History of tonsillectomy and adenoidectomy 1999 Hx laparoscopic cholecystectomy 04/18/03 Hx of colonoscopy 03/02/21 Colonoscopy, diagnostic (rectum) (N/A) superficial ulcers terminal ileum c/w small bowel Crohns/recall 2 years/COLONOSCOPY FLEXIBLE PROXIMAL DIAGNOSTIC performed by Redd Lang MD at [facility] Family History Mother Cancer Neurological disorder Anxiety Depression Father Cancer bladder cancer FH: prostate cancer Kidney stones Anxiety Depression Melanoma Sister Cancer Breast cancer Stroke Heart disease Thyroid disorder Anxiety Depression Grandmother (Maternal) Heart disease Mental disorder Hyperlipidemia Grandmother (Maternal) Heart disease Mental disorder Brother Anxiety Depression Social History Smoking Status: Former smoker Hx Alcohol Use: No Hx Substance Use: No Preferred Language: Maltese Communication Ability: Effective Calender Operator Required: No Beliefs That Will Affect Care: None marital status: Current Living Situation: Spouse current occupational status: unemployed current occupation: homemaker How many Children do You have: 1 Feels Safe at Home: Yes Safety Concerns: Feels Safe At This Time Dental Care, Regularly: Yes Assistive Devices: Glasses Assistive Devices Comment: reading glasses. Review of Systems Review of Systems: ROS: Gen: Denies weakness, fevers, weight loss Eyes: No eye redness, or pain, no recent vision changes Resp: No SOB, no cough Cardio: No palpitations/irregular beats, no chest pain GI: As per HPI, otherwise (-) : Denies pain on urination Skin: No jaundice, itching or new rashes Physical Exam Constitutional: WD/WN, vitals as above Eyes: PERRL, conjunctivae normal, anicteric sclerae Neck: trachea midline, no thyromegaly Respiratory: normal respiratory effort, lungs clear to auscultation Cardiovascular: RRR, no murmur, no edema Gastrointestinal (Abdomen): Inspection/Auscultation: + abdomen distended (mild) and normal bowel sounds Percussion/Palpation: + abdomen tender (tender across both sides of the abdomen at the level of the umbilicus) and abdomen soft Musculoskeletal: no cyanosis or clubbing, extremities motor strength 5/5 Skin: no rashes, warm and dry Neurologic: PERRL, EOMI, accommodation nl, no face palsy, no dysarthria Psychiatric: A+Ox3, euthymic affect Lymphatic: no cervical or axillary lymphadenopathy Results & Data ([facility]) Vital Signs (Past 12 Hours) Vital Signs Temp Pulse Pulse Resp BP BP Pulse Ox 03/18/22 08:47 89 18 110/68 95 03/18/22 07:43 36.8 C 100 H 18 105/70 93 03/18/22 05:08 36.7 C 90 18 110/76 94 03/18/22 04:30 100 H 17 110/76 95 03/18/22 04:00 99 H 17 115/76 92 03/18/22 03:30 101 H 19 106/75 94 03/18/22 02:30 110 H 20 103/73 92 03/18/22 02:00 103 H 21 120/82 90 03/18/22 01:00 103 H 18 124/84 92 03/18/22 00:30 97 H 26 H 139/84 95 03/18/22 00:01 101 H 20 133/87 97 03/17/22 22:21 37 C 112 H 18 118/82 95 O2 Del Method 03/18/22 08:47 Room Air 03/18/22 07:43 Room Air 03/18/22 05:08 Room Air 03/18/22 04:30 Room Air 03/18/22 04:00 Room Air 03/18/22 03:30 Room Air 03/18/22 02:30 Room Air 03/18/22 02:00 Room Air 03/18/22 01:00 Room Air 03/18/22 00:30 Room Air 03/18/22 00:01 Room Air 03/17/22 22:21 Room Air Laboratory Results WBC 8.46, Hb 11.2, Hct 34.3, Plts 240, Na 142, K 2.6, Cl 103, CO2 32, BUN 10, Cr 0.65, glucose 101 LFTS and lipase normal. Diagnostic Findings CTAP w IV/oral 03/17/22: 1. There is evidence of a nonspecific enteritis involving the mid to distal small bowel. Inflammatory bowel disease/active Crohn's disease is favored given the clinical history. 2. Mildly distended loops of proximal small bowel likely represent ileus. Enteric contrast reaches the distal small bowel, and there is no transition point to suggest high-grade obstruction. 3. There is evidence of previous small bowel resections. 4. There is interloop fluid/a small volume of abdominopelvic ascites. 5. Prominent mesenteric lymph nodes are likely reactive. 6. Hepatomegaly and hepatic steatosis. 7. Trace pleural effusions. 8. Bilateral nephrolithiasis.
[2022-03-18 10:41] LABS: BUN Creatinine Ratio 10.8 (10-20); Calcium 7.9 mg/dl (8.5-10.1); Est GFR (African American) 120.8 ml/min; Est GFR (Non-African American) 104.3 ml/min; Magnesium 2.2 mg/dl (1.7-2.4)
[2022-03-18 17:04] LABS: Adenovirus F 40/41 PCR Not Detected (NotDetected); Astrovirus PCR Not Detected (NotDetected); Campylobacter PCR Not Detected (NotDetected); Cryptosporidium PCR Not Detected (NotDetected); Cyclospora cayetanensis PCR Not Detected (NotDetected); Entamoeba histolytica PCR Not Detected (NotDetected); Enteroaggregative E.coli(EAEC) Not Detected (NotDetected); Enteropathogenic E.coli (EPEC) Not Detected (NotDetected); Enterotoxigenic E.coli (ETEC) Not Detected (NotDetected); Giardia lamblia PCR Not Detected (NotDetected); Norovirus GI/GII PCR Not Detected (NotDetected); Plesiomonas shigelloides PCR Not Detected (NotDetected); Rotavirus A PCR Not Detected (NotDetected); Salmonella PCR Not Detected (NotDetected); Sapovirus PCR Not Detected (NotDetected); Shiga-like Toxin E.coli (STEC) Not Detected (NotDetected); Shigella/Enteroinvasive E.coli Not Detected (NotDetected); Vibrio cholerae PCR Not Detected (NotDetected); Vibrio species PCR Not Detected (NotDetected); Yersinia enterocolitica PCR Not Detected (NotDetected)
--- NOTE | 2022-03-18 17:37 | History & Physical Bridge Note ---
Date of Service March 18, 2022 History & Physical Bridge Note I have examined the patient, reviewed the History & Physical and in the interval since the performance of the History & Physical : I saw [atient at 10 am and 530 pm. She was diagnosed w Crohn's disease in [address] Beauchamp. remicaid recently stopped as had joint pains. Now on Ustekinumab every 8 weeks since October and has had intermittent abd pains since then. Usually 6-8 BMS s daily - not last 2 days. denies alcohol use or smoking. Denies illicit drug se. Came with abd pain diffuse without bloody stools. K 2.6 I started a soft diet this morning which patient did well on. Continue. GI have seen he since. They recommend sips of water for now. Will ask them if can continue diet as symptoms stable- no worsening of abd pain. Continue sertraline and watching lytes.
[2022-03-18] MEDS ORDERED: POTASSIUM CHLORIDE CRTAB 20 MEQ TABCR PO STA (17:47)
[2022-03-18] MEDS: traZODone HCL 50 MG TAB PO SCH (22:17)
[2022-03-19 06:29] LABS: Basophils # (auto) 0.02 K/uL (0-0.2); Basophils % (auto) 0.3 %; Eosinophils # (auto) 0.05 K/uL (0-0.50); Eosinophils % (auto) 0.8 %; Hematocrit (blood only) 31.2 % (34.1-44.9); Hemoglobin 10.1 g/dl (12.0-16.0); Immature Granulocytes # (auto) 0.03 K/uL (0.00-0.02); Immature Granulocytes % (auto) 0.5 %; Lymphocytes # (auto) 2.13 K/uL (1.2-3.4); Lymphocytes % (auto) 36.2 %; Mean Corpuscular Hemoglobin 29.3 pg (25.0-34.0); Mean Corpuscular Hgb Conc 32.4 g/dL (32.0-36.0); Mean Corpuscular Volume 90.4 fL (80.0-100.0); Mean Platelet Volume 8.7 fL (9.4-12.3); Monocytes # (auto) 0.51 K/uL (0.24-0.82); Monocytes % (auto) 8.7 %; Neutrophils # (auto) 3.15 K/uL (1.4-6.5); Neutrophils % (auto) 53.5 %; Platelet Count 222 K/uL (130-400); RDW Coefficient of Variation 14.2 % (11.5-14.5); RDW Standard Deviation 46.5 fL (36.4-46.3); Red Blood Count 3.45 M/uL (3.93-5.22); White Blood Count 5.89 K/ul (4.8-10.8)
[2022-03-19 06:47] LABS: Albumin Globulin Ratio 1.3 (0.9-2); Albumin Level 2.9 gm/dl (3.4-5.0); BUN Creatinine Ratio 13.1 (10-20); Bilirubin,Total 0.3 mg/dl (0.2-1.0); Calcium 7.5 mg/dl (8.5-10.1); Creatinine Clr Calc Pharmacy 107.6 ml/min; Est GFR (African American) 123.4 ml/min; Est GFR (Non-African American) 106.5 ml/min; Globulin 2.3 gm/dl (2.5-4.0); Magnesium 2.3 mg/dl (1.7-2.4); Potassium 3.1 mmol/L (3.5-5.1); Total Protein 5.2 gm/dl (6.0-8.3)
[2022-03-19] MEDS: PANTOprazole 40 MG TAB PO SCH (09:05)
[2022-03-19] MEDS: CHOLECALCIFEROL 5,000 UNITS 125 MCG TAB PO SCH (09:05)
[2022-03-19] MEDS: MONTELUKAST SODIUM 10 MG TABLET PO SCH (09:05)
[2022-03-19] MEDS: FLUTICASONE PROPIONATE NA SPR 16 GM BTL SCH (09:06)
[2022-03-19] MEDS: SERTRALINE HCL 50 MG TABLET PO SCH (09:06)
[2022-03-19] MEDS: DICYCLOMINE HCL 10 MG CAP PO PRN (09:08)
[2022-03-19] MEDS: ACETAMINOPHEN 325 MG TAB PO PRN (09:09)
--- NOTE | 2022-03-19 11:07 | Gastroenterology Progress Note ---
Date of Service March 19, 2022 Assessment & Plan Admission and Anticipated Discharge Date Admission Date: March 18, 2022 Supervising Physician Co-Signing Physician Notes 47 yo fm with a history of crohn's disease s/p resection of 15 cm of her ileum in the past at [place], now on maintenance stelara since summer. Admitted with abd pain- ? ileus versus enteritis, stool studies negative. Passing gas so less likely an obstructive ileus. Will plan for IV steroids today to help with any inflammation in the small bowel that may be contributing to her symptoms, then start Prednisone taper. Ok to mt home on steroid taper. She already was planning to obtain a second opinion from [facility]. Advance diet as tolerated. Subjective Doing a bit better - still feeling a bit distended Review of Systems Review of Systems: All systems reviewed & are unremarkable except as noted in HPI & below Physical Exam Physical Exam: Happier appearing female in nad Eyes: PERRL, conjunctivae normal, anicteric sclerae Respiratory: Normal respirations, no audible wheezing Gastrointestinal (Abdomen): soft nt nd Skin: no rashes noted on her face, arms Neurologic: PERRL, EOMI, accommodation nl, no face palsy, no dysarthria Psychiatric: A+Ox3, euthymic affect Results & Data ([facility]) Vital Signs (Past 12 Hours) Vital Signs Temp Pulse Resp BP Pulse Ox O2 Del Method 03/19/22 07:25 36.8 C 87 16 119/78 95 Room Air Laboratory Results Labs showing wbc 5.89, hgb 10.1, hct 31.2, plt 222
[2022-03-19] MEDS ORDERED: POTASSIUM CHLORIDE CRTAB 20 MEQ TABCR PO STA (12:16)
[2022-03-19] MEDS: methylPREDNISolone 20 MG in SYRINGE 0 ML IV SCH ×2 (12:58→20:46)
[2022-03-19] MEDS ORDERED: MoRPHine SULFATE IR 15 MG TAB (IMMEDIATE RELEASE) PO PRN (19:59)
[2022-03-19] MEDS: traZODone HCL 50 MG TAB PO SCH (20:45)
--- NOTE | 2022-03-19 21:04 | Hospitalist Progress Note ---
Date of Service March 19, 2022 Assessment & Plan (1) Acute upper abdominal pain: Plan: Yari Newberry is a 47-year-old female with past medical history of Crohn's on ustekinumab who presented due to upper abdominal pain. Acute abdominal pain/Crohn's disease Patient on ustekinumab for Crohn's Follows with [facility] plans for visit to [facility] for second opinion in March Currently no significant stool changes or bloody stools, does have chronic diarrhea IV steroids [id number] by GI-discharged on prednisone taper in 1 or 2 days On regular diet now and doing well Stool PCR panel negative Antiemetics and analgesics as needed Hypokalemiareplacing daily Bacterial rhinosinusitis Started cefdinir 300 mg twice daily on Friday evening Antibiotics could potentially be contributing to her abdominal symptoms Hold at this time until further guidance from GI GERD Continue home pantoprazole Anxiety/depression Continue home sertraline daily and trazodone at bedtime (2) Acute hypokalemia: (3) Hypomagnesemia: (4) Crohn disease: (5) GERD (gastroesophageal reflux disease): (6) Anxiety with depression: Plan Had significant pain after I saw her today and I got a couple of messages from nursing. Stop dicyclomine. Started morphine IR 15 mg p.o. for abd pain control May not be ready for discharge tomorrow. Admission and Anticipated Discharge Date Admission Date: March 18, 2022 Subjective seen at 1315 h Complained of some soreness in her abdomen but tolerating a regular diet quite well. No exacerbation of abdominal pain after eating. Has had 6 bowel movements since yesterday, 3 today all loose. No blood Physical Exam Physical Exam: Well-looking, sitting up in bed in no acute distress calm, watching television Moist tongue Abdomen tender in the periumbilical area with some guarding [employer] grossly intact Psych normal affect, insight and judgment Results & Data Results & Data ([facility]) Vital Signs (Past 12 Hours) Vital Signs Temp Pulse Resp BP Pulse Ox O2 Del Method 03/19/22 15:14 36.7 C 87 16 120/75 95 Room Air Laboratory Results 03/19/22 03/19/22 06:07 06:07 WBC 5.89 RBC 3.45 L Hgb 10.1 L Hct 31.2 L MCV 90.4 MCH 29.3 MCHC 32.4 RDW Std Deviation 46.5 H RDW Coeff of Oc 14.2 Plt Count 222 MPV 8.7 L Immature Gran % (Auto) 0.5 Neut % (Auto) 53.5 Lymph % (Auto) 36.2 [place] % (Auto) 8.7 Eos % (Auto) 0.8 Baso % (Auto) 0.3 Neut # (Auto) 3.15 Lymph # (Auto) 2.13 [place] # (Auto) 0.51 Eos # (Auto) 0.05 Baso # (Auto) 0.02 Immature Gran # (Auto) 0.03 H Sodium 143 Potassium 3.1 L Chloride 107 Carbon Dioxide 32 Anion Gap 4 BUN 8 Creatinine 0.61 Est Cr Clr Drug Dosing 107.6 Est GFR ( Amer) 123.4 Est GFR (Non-Af Amer) 106.5 BUN/Creatinine Ratio 13.1 Glucose 96 Calcium 7.5 L Magnesium 2.3 Total Bilirubin 0.3 AST 13 ALT 9 Alkaline Phosphatase 67 Total Protein 5.2 L Albumin 2.9 L Globulin 2.3 L Albumin/Globulin Ratio 1.3 Medications Administered Home Medications Medication Instructions Recorded Confirmed Last Taken cholecalciferol (vitamin D3) 250 250 mcg PO DAILY 02/20/22 03/17/22 Unknown mcg (10,000 unit) capsule collagen (bovine) 100 % topical 1 applic topical DAILY 02/20/22 03/17/22 Unknown powder epinephrine 0.3 mg/0.3 mL 0.3 mg (0.3 mL) IM Q4H PRN 02/20/22 03/17/22 Unknown injection, auto-injector anaphylaxis #2 ea fluticasone propionate 50 1 spray intranasal DAILY #16 grams 02/20/22 03/17/22 Unknown mcg/actuation nasal spray,suspension (Flonase Allergy Relief) montelukast 10 mg tablet 10 mg PO DAILY 02/20/22 03/17/22 Unknown (Singulair) ondansetron HCl 4 mg tablet 4 mg PO Q8H PRN as directed 02/20/22 03/17/22 Unknown pantoprazole 40 mg tablet,delayed 40 mg PO DAILY 02/20/22 03/17/22 Unknown release pseudoephedrine HCl 120 mg 120 mg PO Q12H 02/20/22 03/17/22 Unknown tablet,extended release (Sudafed 12 Hour) sertraline 100 mg tablet 150 mg PO DAILY 02/20/22 03/17/22 Unknown trazodone 50 mg tablet 50 mg PO HS 02/20/22 03/17/22 Unknown ustekinumab 90 mg/mL subcutaneous 90 mg subcut .EVERY 8 WEEKS 02/20/22 03/17/22 Unknown syringe (Valeri) cefdinir 300 mg capsule 300 mg PO AMHS 03/17/22 03/17/22 Unknown dicyclomine 10 mg capsule 10 mg PO QID PRN as directed 03/17/22 03/17/22 Unknown zinc gluconate 50 mg tablet 50 mg PO DAILY 03/17/22 03/17/22 Unknown Active Medications Generic Name Dose Route Start Last Admin Trade Name Freq PRN Reason Stop Dose Admin Acetaminophen 650 mg 03/18/22 05:07 03/19/22 09:09 Acetaminophen 325 Mg Tab PO 04/17/22 05:06 650 mg Q4H PRN Administration pain/fever Al Hydrox/Mg Hydrox/Simethicone 30 ml 03/18/22 09:36 03/18/22 09:49 Aluminum/Magnesium Susp 30 Ml Udc PO 04/17/22 09:35 30 ml Q6H PRN Administration Flatulence Dicyclomine HCl 10 mg 03/18/22 05:07 03/19/22 09:08 Dicyclomine Hcl 10 Mg Cap PO 04/17/22 05:06 10 mg QID PRN Administration Gas Fluticasone Propionate 1 sprays 03/18/22 09:00 03/19/22 09:06 Fluticasone Propionate Na Spr 16 Gm Btl NA 04/17/22 08:59 1 sprays DAILY CASEY Administration Methylprednisolone 20 mg/ 0.32 mls @ 1.5 mls/min 03/19/22 14:00 03/19/22 20:46 Syringe IV 04/18/22 13:59 1.5 mls/min TID CASEY Administration Montelukast Sodium 10 mg 03/18/22 09:00 03/19/22 09:05 Montelukast Sodium 10 Mg Tablet PO 04/17/22 08:59 10 mg DAILY CASEY Administration Ondansetron HCl 4 mg 03/18/22 05:07 03/18/22 09:32 Ondansetron Inj 2 Mg/Ml 2 Ml Vial IV 04/17/22 05:06 4 mg Q6H PRN Administration Nausea Pantoprazole Sodium 40 mg 03/18/22 09:00 03/19/22 09:05 Pantoprazole 40 Mg Tab PO 04/17/22 08:59 40 mg DAILY CASEY Administration Sertraline HCl 150 mg 03/18/22 09:00 03/19/22 09:06 Sertraline Hcl 50 Mg Tablet PO 04/17/22 08:59 150 mg DAILY CASEY Administration Trazodone HCl 50 mg 03/18/22 21:00 03/19/22 20:45 Trazodone Hcl 50 Mg Tab PO 04/17/22 20:59 50 mg HS CASEY Administration Vitamin D 10,000 units 03/18/22 09:00 03/19/22 09:05 Cholecalciferol 5,000 Units 125 Mcg Tab PO 04/17/22 08:59 10,000 units DAILY CASEY Administration PG Care Time/CCT Total # of Minutes Spent Total Time Spent with Patient: Total time spent is greater than 50% in coordination of care (as documented) at patient's floor/unit and/or counseling patient: Coding Level of Care Code 62225 Subseq Hosp Care Lvl 2 Diagnoses Acute upper abdominal pain R10.10 Acute hypokalemia E87.6 Hypomagnesemia E83.42 Crohn disease K50.90 GERD (gastroesophageal reflux disease) K21.9 Anxiety with depression F41.8
--- NOTE | 2022-03-19 21:32 | Electrocardiogram Report ---
Test Reason : Blood Pressure : / mmHG Vent. Rate : 093 BPM Atrial Rate : 093 BPM P-R Int : 140 ms QRS Dur : 070 ms QT Int : 386 ms P-R-T Axes : 047 013 027 degrees QTc Int : 479 ms Normal sinus rhythm Normal ECG No previous ECGs available Confirmed by Luis E Heath ([id number]) on 03/19/2022 9:32:13 PM Referred By: REFERRED SELF Confirmed By:Luis E Heath
[2022-03-20] MEDS: ACETAMINOPHEN 325 MG TAB PO PRN (07:33)
[2022-03-20] MEDS: MONTELUKAST SODIUM 10 MG TABLET PO SCH (07:34)
[2022-03-20] MEDS: FLUTICASONE PROPIONATE NA SPR 16 GM BTL SCH (07:34)
[2022-03-20] MEDS: SERTRALINE HCL 50 MG TABLET PO SCH (07:35)
[2022-03-20] MEDS: CHOLECALCIFEROL 5,000 UNITS 125 MCG TAB PO SCH (07:35)
[2022-03-20] MEDS: PANTOprazole 40 MG TAB PO SCH (07:35)
[2022-03-20] MEDS: methylPREDNISolone 20 MG in SYRINGE 0 ML IV SCH (07:35)
[2022-03-20 08:12] LABS: White Blood Count 6.91 K/ul (4.8-10.8)
[2022-03-20 08:13] LABS: Basophils # (auto) 0.02 K/uL (0-0.2); Basophils % (auto) 0.3 %; Hemoglobin 11.8 g/dl (12.0-16.0); Immature Granulocytes # (auto) 0.02 K/uL (0.00-0.02); Immature Granulocytes % (auto) 0.3 %; Lymphocytes # (auto) 2.59 K/uL (1.2-3.4); Lymphocytes % (auto) 37.5 %; Mean Corpuscular Hemoglobin 28.8 pg (25.0-34.0); Mean Corpuscular Hgb Conc 31.9 g/dL (32.0-36.0); Mean Corpuscular Volume 90.2 fL (80.0-100.0); Mean Platelet Volume 8.7 fL (9.4-12.3); Monocytes # (auto) 0.43 K/uL (0.24-0.82); Monocytes % (auto) 6.2 %; Neutrophils # (auto) 3.85 K/uL (1.4-6.5); Neutrophils % (auto) 55.7 %; Platelet Count 315 K/uL (130-400); RDW Coefficient of Variation 14.2 % (11.5-14.5); RDW Standard Deviation 46.4 fL (36.4-46.3)
[2022-03-20 08:35] LABS: BUN Creatinine Ratio 10.8 (10-20); Calcium 8.2 mg/dl (8.5-10.1); Est GFR (African American) 120.8 ml/min; Est GFR (Non-African American) 104.3 ml/min; Potassium 3.6 mmol/L (3.5-5.1)
--- NOTE | 2022-03-20 10:00 | Gastroenterology Progress Note ---
Date of Service March 20, 2022 Assessment & Plan (1) Crohn disease: (2) Diarrhea: Plan: Neg for C-diff /stool culture. Plan OK for discharge from a GI standpoint. Low residual diet. Prednisone 40, 35, 30, 25, 20, 15, 10, 5mg each dose for one week. Will provide prescription on the OP EPIC side. Pt has eval with in mid Mar and OP [facility] follow up in one month. Pt to call in the interim if worsening symptoms. Admission and Anticipated Discharge Date Admission Date: March 18, 2022 Supervising Physician Co-Signing Physician Notes I have seen and discussed the management with KOBY Person. Feeling much better. PE as above, abdomen soft Agree with further plan of care as documented. Subjective 47 female admitted 03/[address] w mildly dilated small bowel. This morning feeling well. Tolerating soft diet. 2 BMs thus far this morning, loose. Last night had cramping abd pain considered narcotics but was able to tolerate w/o taking pain meds. Feels ready for discharge. Review of Systems Review of Systems: ROS: Gen: Denies weakness, fevers, weight loss Eyes: No eye redness, or pain, no recent vision changes Resp: No SOB, no cough Cardio: No palpitations/irregular beats, no chest pain GI: As per HPI, otherwise (-) : Denies pain on urination Skin: No jaundice, itching or new rashes Physical Exam Constitutional: WD/WN, vitals as above Eyes: PERRL, conjunctivae normal, anicteric sclerae ENMT: external ear and nose normal, oropharynx normal Neck: trachea midline, no thyromegaly Respiratory: normal respiratory effort, lungs clear to auscultation Cardiovascular: RRR, no murmur, no edema Gastrointestinal (Abdomen): Inspection/Auscultation: abdomen normal to inspection and normal bowel sounds; abdomen not distended Percussion/Palpation: + abdomen tender (mildly in the periumbilical area) and abdomen soft Skin: no rashes, warm and dry Neurologic: PERRL, EOMI, accommodation nl, no face palsy, no dysarthria Psychiatric: A+Ox3, euthymic affect Results & Data ([place]) Vital Signs (Past 12 Hours) Vital Signs Temp Pulse Resp BP Pulse Ox O2 Del Method 03/20/22 07:17 36.8 C 82 16 118/81 96 Room Air Laboratory Results WBC 6.9, Hb 11.8, Hct 27, Plts 315, Na 143, K 3.1, Cl 106, CO2 31, BUN 7, Cr 0.6, glucose 103 Diagnostic Findings CTAP w IV 03/17/22: 1. There is evidence of a nonspecific enteritis involving the mid to distal small bowel. Inflammatory bowel disease/active Crohn's disease is favored given the clinical history. 2. Mildly distended loops of proximal small bowel likely represent ileus. Enteric contrast reaches the distal small bowel, and there is no transition point to suggest high-grade obstruction. 3. There is evidence of previous small bowel resections. 4. There is interloop fluid/a small volume of abdominopelvic ascites. 5. Prominent mesenteric lymph nodes are likely reactive. 6. Hepatomegaly and hepatic steatosis. 7. Trace pleural effusions. 8. Bilateral nephrolithiasis.
--- NOTE | 2022-03-20 11:31 | Discharge Summary ---
Date of Service March 20, 2022 Admission HPI Per Admitting Provider Yari Newberry is a 47-year-old female with past medical history of Crohn's on ustekinumab who presented due to abdominal pain starting yesterday early in the afternoon. She reports mainly upper abdominal pain, mild nausea, but no vomiting. She notes that she does have chronic diarrhea, which has been stable for her no recent changes, no bloody stools. Of note, the patient started taking cefdinir for a bacterial rhinosinusitis on Friday evening. She thinks there may be a correlation between the antibiotics and the onset of her symptoms. She has no fever, chills, chest pain, palpitations, shortness of breath, headache, dizziness, weakness, numbness, myalgias, arthralgias. In the ED, had CT A/P showing: "long segment wall thickening and perienteric inflammatory change involving an approximately 30 cm segment of small bowel. Centrally there is an area of narrowing measuring up to 2.2 cm in length. There is no associated obstruction. There are some adjacent loops of small bowel which appear inflamed, likely reactive. There is a small volume of fluid in the right paracolic gutter, likely reactive. Patient is status postcholecystectomy. There is a nonobstructing right lower pole of renal calculus. There are postsurgical changes of anterior fusion at L5-S1." Lab work showed hypokalemia of 2.6 and hypomagnesemia of 1.5. Calcium was mildly decreased at 7.9. Hemoglobin of 11.2, which is stable for the patient. Principal Diagnosis Acute exacerbation Crohn's disease, hypokalemia Discharge Exam General-alert and oriented x3, no fevers, no chills HEENT-head atraumatic and normocephalic, pupils equal and reactive to light, extraocular muscles intact Neck-no lymphadenopathy or thyromegaly, trachea midline Chest-clear to auscultation percussion. No rales wheezing or rhonchi Cardiac-regular rate and rhythm, normal S1 and S2, no murmurs Abdomen-normal bowel sounds, nontender, no hepatosplenomegaly Extremities-no cyanosis, clubbing, or edema Neuro-cranial nerves II through XII intact, motor and sensory function within normal limits, strength symmetrical , no focal deficits Psych-normal affect, normal mood Discharge Data Allergies Allergy/AdvReac Type Severity Reaction Status Date / Time bee venom protein (honey bee) Allergy Severe ANAPHYLAXIS Verified 03/17/22 22:46 amoxicillin AdvReac Mild nausea/vomi Verified 03/17/22 22:46 tting erythromycin base AdvReac Mild nausea/vomi Verified 03/17/22 22:46 tting Consultations 03/18/22 02:51 ED Decision to Admit Stat 03/18/22 05:07 Consult Gastroenterology Routine Ordered Studies 03/17/22 23:08 CT abd pelvis oral and IV con Urgent Hospital Course (1) Acute upper abdominal pain: Due to exacerbation of Crohn's disease. Now resolved. She was given morphine while hospitalized which will be discontinued at discharge (2) Acute hypokalemia: Corrected with replacement therapy (3) Hypomagnesemia: Corrected with replacement therapy (4) Crohn disease: Gastroenterology consultation appreciated. Treated with intravenous steroid therapy while hospitalized. Home on an oral prednisone taper (5) GERD (gastroesophageal reflux disease): Treated with proton pump inhibitor (6) Anxiety with depression: Continue current medication therapy. Stable Plan Discharge to home today, March 20 on a prednisone taper Total Time Total Time Spent Total Time Spent (In Minutes): 35 minutes Discharge Plan Discharge Items Patient Disposition: Home - Self-Care Reason For Visit: CROHN'S, ABNORMAL ELECTROLYTES Discharge Diagnosis: Abdominal pain due to exacerbation of Crohn's disease, hypokalemia Condition on Discharge: Good Activity: Resume your previous activity Non-emergency contact: Primary Care Provider Call non-emergency contact if: you have any medication questions Follow-up/Referrals: Landry Menon MD [Primary Care Provider] - Diet: Regular Addtl Attending Provider Instructions: Take prednisone tapering dose as directed Pending Studies at Discharge: No Stand-Alone Forms: [employer], Smoking Cessation Medications and DC Order Prescriptions: Continued Stelara 90 mg/mL syringe 90 mg subcut .EVERY 8 WEEKS Rx Instructions: Inject under the skin 90 mg every 8 weeks montelukast [Singulair] 10 mg tablet 10 mg PO DAILY pantoprazole 40 mg tablet,delayed release (DR/EC) 40 mg PO DAILY trazodone 50 mg tablet 50 mg PO HS pseudoephedrine HCl [Sudafed 12 Hour] 120 mg tablet extended release 120 mg PO Q12H cholecalciferol (vitamin D3) 250 mcg (10,000 unit) capsule 250 mcg PO DAILY epinephrine 0.3 mg/0.3 mL auto-injector 0.3 mg IM Q4H PRN (Reason: anaphylaxis) Qty: 2 0RF fluticasone propionate [Flonase Allergy Relief] 50 mcg/actuation spray,suspension 1 spray intranasal DAILY Qty: 16 2RF Rx Instructions: administer into each nostril ondansetron HCl 4 mg tablet 4 mg PO Q8H PRN (Reason: as directed) collagen (bovine) 100 % powder 1 applic topical DAILY Rx Instructions: apply a 1/4 inches inch thick layer, do not pack tightly; cover using a non- adherent dressing sertraline 100 mg tablet 150 mg PO DAILY zinc gluconate 50 mg Tablet 50 mg PO DAILY dicyclomine 10 mg capsule 10 mg PO QID PRN (Reason: as directed) cefdinir 300 mg capsule 300 mg PO AMHS Qty: 20 0RF Rx Instructions: ordered 03/15/22 for 10 days Discharge Orders: Discharge Order (Routine); Ordered 03/20/22 Ordered By: Saul Huang Admission Data Admit Date/Time: 03/18/22 03:50 Attending Provider: Saul Huang Admit Provider: Francisco J Hargrove Primary Care Provider: Landry Menon Other Providers: Cathie Carter Jr ; Tonya Arzate Coding Level of Care Code D/C DAY MANAGEMENT >30 MINS Diagnoses Acute upper abdominal pain R10.10 Acute hypokalemia E87.6 Hypomagnesemia E83.42 Crohn disease K50.90 GERD (gastroesophageal reflux disease) K21.9 Anxiety with depression F41.8
== END 2022-03-20 12:00 | disposition home or self-care (01) | DRG 387 ==
LOC: ED 22:18 → 3E 03-18 03:50 → SUATTDRO 03-18 03:50 → 3E 03-18 04:48

== ENCOUNTER 2023-05-07 12:00 | Inpatient (IN) ==
--- NOTE | 2023-05-07 12:30 | ED Triage Note ---
Date of Service May 07, 2023 Provider in Triage Author: Nona Gamboa History of Present Illness This patient was briefly evaluated while in triage. An abbreviated physical exam was performed. This patient is a 48-year-old Female who presents to the ED for evaluation of headache x two weeks, tachycardia today when standing in the shower. She reports it has been worse with exertion and resolves while sitting. No chest pain, no shob. Physical Exam CONSTITUTIONAL: in no acute pain or distress, resting comfortably SKIN: pink, warm, dry CARDIAC: sinus tachycardia RESPIRATORY: in no respiratory distress, lungs clear to auscultation ABDOMEN: no TTP MSK: 5/5 strength throughout NEURO: no neuro deficits, alert and oriented x 3 Initial orders for labs and / or imaging were placed and patient was placed in the waiting area until a bed is available. Please see further documentation for the full ED course.
[2023-05-07] MEDS: SODIUM CHLORIDE 0.9% 1,000 ML IV STA (13:08)
--- NOTE | 2023-05-07 13:37 | XRay Report ---
XR chest 1V not portable HISTORY: 48 years-old Female Chest pain, nonspecific acute weakness with tachycardia COMPARISON: 08/30/2016 TECHNIQUE: PA view of the chest FINDINGS: Cardiomediastinal and hilar silhouettes are within normal limits. No pneumothorax, pleural effusion o r airspace consolidation. Bones appear grossly intact. Mild mid thoracic dextroscoliosis. Cholecystec larry. IMPRESSION: No acute process. ACT 112: Negative or not required by law. The above report was generated using voice recognition software. It may contain grammatical, syntax o r spelling errors. Electronically signed by: Varghese Zaragoza M.D. 05/07/2023 1:36 PM
[2023-05-07 13:56] LABS: Hematocrit (blood only) 18.5 % (37.0-47.0); Hemoglobin 6.5 g/dl (12.0-16.0); Mean Corpuscular Hemoglobin 34.9 pg (25.0-34.0); Mean Corpuscular Hgb Conc 35.1 g/dL (32.0-36.0); Mean Corpuscular Volume 99.5 fL (80.0-100.0); Mean Platelet Volume 10.6 fL (9.4-12.4); Platelet Count 73 K/uL (130-400); RDW Coefficient of Variation 16.6 % (11.5-14.5); RDW Standard Deviation 57.7 fL (36.4-46.3); Red Blood Count 1.86 M/uL (4.20-5.40); White Blood Count 2.58 K/ul (4.8-10.8)
[2023-05-07 14:11] LABS: Basophils # (auto) 0.01 K/uL (0.00-0.20); Basophils % (auto) 0.4 %; Eosinophils # (auto) 0.01 K/uL (0.00-0.50); Eosinophils % (auto) 0.4 %; Immature Granulocytes # (auto) 0.01 K/uL (0.01-0.20); Immature Granulocytes % (auto) 0.4 %; Lymphocytes # (auto) 0.88 K/uL (1.20-3.40); Lymphocytes % (auto) 34.1 %; Monocytes # (auto) 0.08 K/uL (0.11-0.59); Monocytes % (auto) 3.1 %; Neutrophils # (auto) 1.59 K/uL (1.40-6.50); Neutrophils % (auto) 61.6 %; Tear Drop Cells 1+
--- NOTE | 2023-05-07 15:03 | Emergency Department Note ---
Impression & Plan Pancytopenia, Heart palpitations, Symptomatic anemia, Crohn disease ED Provider Note NAME: SHARON PERALES AGE: 48 SEX: F : 1975 ARRIVES VIA: Walk-In INFORMANT: Patient, ED PROVIDER(S): Elian Lara MD CHIEF COMPLAINT: Palpitations, lightheadedness, dizziness MEDICAL DECISION MAKING: Patient presents with the above symptoms. IV was established and blood work was obtained. The patient was noted to have pancytopenia. Patient does have a history of Crohn's disease and is on immunologic therapy and was started on sulfasalazine. Concerned that this may be medication side effect of the patient's azathioprine which the patient has been taking. Patient had a 4 point drop her hemoglobin since December the patient did have a hemoglobin slightly greater than 7 in March. Patient was consented in order to units PRBCs. I did speak with the admitting hospitalist Pipe Foster PA-C and Dr. Espinosa. Critical Care: I have personally spent 45 minutes of critical care time in direct management of this patient. This includes bedside care, interpretation of diagnostic studies, and testing, discussion with consultants, patient, and family members, and other require inpatient management activities. This 45 minutes is in excess of all separately billable procedures. Discussion w/ other healthcare providers: Pipe Foster PA-C and Dr. Espinosa Prior /Outside records reviewed: I reviewed a rheumatology visit from April 24, [address] Tobar. The patient does have a known history of Crohn's and was noted to have arthralgias and prescribed sulfasalazine. Differential diagnosis: Premature contractions, electrolyte abnormality, cardiac dysrhythmia, thyroid dysfunction, infection, toxicologic, anxiety among others were considered. Diagnostics, as interpreted by me: ECG: Sinus tachycardia, rate of 105, normal intervals, normal axis no ST elevations Cardiac monitoring: An order was placed for continuous cardiac monitoring. The monitor shows a rate of 95 with sinus rhythm. Patient was placed on pulse oximetry Medical decision rules: None Imaging studies: I informally interpreted the patient's chest x-ray which does not show obvious pneumonia or pneumothorax with formal report to follow. I informally reviewed the patient's CT head which does not show obvious ICH. HPI: Patient presents due to concern for tachycardia palpitations and lightheadedness and dizziness. The patient states that she began noticing some of the symptoms of palpitations about 2 weeks ago. Patient states that they have become more persistent and more prolonged and constant in nature. Patient states that she when she went to bed last night heart rate was greater than 100 when she got up and use the shower this morning when she got out she felt lightheaded dizzy and noted her heart rate to be 175. Patient denies any blood in urine or stool. She does have a history of Crohn's but does not complain of any significant abdominal pain. The patient did have a recent visit with rheumatology and was placed on sulfasalazine. Patient does take azathioprine and has taken this for a long time for her Crohn's. Patient denies any falls or trauma. The patient has had chronic left-sided headache for the last 2 weeks. Patient is trialed [id number] medications but without improvement in symptoms. Patient denies any numbness ting or focal weakness. Patient does not take chronic NSAIDs and denies taking any blood thinning medications. No trauma to the head. PAST MEDICAL HISTORY: See Below PAST SURGICAL HISTORY: See Below SOCIAL HISTORY: See Below HOME MEDICATIONS: See Below ALLERGIES: See Below VITALS: See Below PHYSICAL EXAMINATION: GENERAL: NAD, non-toxic. EYE EXAM: Normal conjunctiva. PERRL, no anisocoria and EOM's grossly intact w/o pain. OROPHARYNX: Moist mucus membranes, grossly normal dentition. NECK: Trachea midline, no stridor. Supple, no nuchal rigidity, no adenopathy, non-tender. No signs of meningismus. FROM of the neck with good chin to chest and neck extension. LUNGS: Clear to auscultation. Normal chest wall mechanics. HEART: NSR, no MRG. ABDOMEN: Abdomen soft, non-tender, no masses, no rebound or guarding. BACK: No CVA TTP. SKIN: No rashes and no bruising. UPPER EXTREMITIES: Upper extremities are grossly normal. LOWER EXTREMITIES: Grossly normal, no edema. NEURO EXAM: A&O x3, cranial nerves II-XII grossly intact, normal speech, moves all 4 extremities. Good finger-nose, no drift and no sensory deficits. Past Med/Surg History Medical History Arthralgia Hiatal hernia Hydronephrosis with renal and ureteral calculous obstruction Immunosuppressed status Hx of migraines R/t exertion Sleep apnea "Mild" No device History of COVID-19 x2, most recent 2021 (home test)- mild symptoms, resolved Gastroparesis IBS (irritable bowel syndrome) Dysplastic nevi s/p excision Allergic rhinitis Subclinical hypothyroidism Anxiety with depression Crohn disease Dyslipidemia GERD (gastroesophageal reflux disease) Surgical History History of appendectomy "appendix was adhered to pelvis causing SBO - patient has appendectomy and lysis of adhesions" History of surgical removal of ganglion cyst History of tonsillectomy S/P lumbar fusion Hx of cholecystectomy H/O wisdom tooth extraction Hx of cystoscopy + stent placement 12/07/22 Hx of wisdom tooth extraction History of surgical removal of ganglion cyst Hx of appendectomy History of lumbar fusion Nausea and vomiting after administration of anesthetic agent History of esophagogastroduodenoscopy (EGD) History of bowel resection 2016 History of tonsillectomy and adenoidectomy 1999 History of cryosurgery Cryocautery of cervix Hx laparoscopic cholecystectomy 2003 History of excision of lesion x2, Lap;excision of lesions lyse adhesions, small bowel resection; suspicious for Crohn's; stricturoplasty Hx of colonoscopy History of incisional hernia repair 08/13/21 Repair recurrent incisional hernia repair twice Family History Mother Cancer Neurological disorder Anxiety Depression Father Cancer bladder cancer FH: prostate cancer Kidney stones Anxiety Depression Melanoma Sister Cancer Breast cancer Stroke Heart disease Thyroid disorder Anxiety Depression Grandmother (Maternal) Heart disease Mental disorder Hyperlipidemia Grandmother (Maternal) Heart disease Mental disorder Brother Anxiety Depression Social History Smoking Status: Never smoker Second Hand Exposure: No; Do You Dip or Chew Tobacco: No; Hx Alcohol Use: No Hx Substance Use: No Preferred Language: Czech Communication Ability: Effective 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 Beliefs That Will Affect Care: None marital status: Current Living Situation: Spouse current occupational status: unemployed current occupation: homemaker How many Children do You have: 1 Other Information That Helps Us Care for You: No Feels Safe at Home: Yes Safety Concerns: Feels Safe At This Time Dental Care, Regularly: Yes Assistive Devices: None Assistive Devices Comment: reading glasses Allergies Allergies Allergy/AdvReac Type Severity Reaction Status Date / Time bee venom protein (honey bee) Allergy Severe Anaphylaxis Verified 05/07/23 16:18 amoxicillin AdvReac Intermediate N/V Verified 05/07/23 16:18 erythromycin base AdvReac Intermediate N/V Verified 05/07/23 16:18 Home Meds Home Medications Medication Instructions Recorded Confirmed cholecalciferol (vitamin D3) 250 250 mcg PO QAM 02/20/22 05/07/23 mcg (10,000 unit) capsule ondansetron HCl 4 mg tablet 4 mg PO Q8H PRN as directed 02/20/22 05/07/23 dicyclomine 10 mg capsule 20 mg PO BID 03/17/22 05/07/23 fluticasone propionate 50 2 spray intranasal BID 07/11/22 05/07/23 mcg/actuation nasal spray,suspension (Flonase Allergy Relief) pantoprazole 40 mg tablet,delayed 40 mg PO QAM 07/11/22 05/07/23 release sertraline 100 mg tablet 200 mg PO QPM 10/16/22 05/07/23 ascorbic acid 30 mg-collagen, 1 tab PO QAM 12/18/22 05/07/23 hydrolyzed 833.3 mg tablet (Collagen Skin Renewal) allopurinol 100 mg tablet 100 mg PO PM 01/27/23 05/07/23 azathioprine 50 mg tablet (Imuran) 75 mg PO PM 02/13/23 05/07/23 sulfasalazine 500 mg 500 mg PO BID 05/07/23 05/07/23 tablet,delayed release Previous Rx's Medication Instructions Recorded epinephrine 0.3 mg/0.3 mL 0.3 mg (0.3 mL) IM Q4H PRN 02/20/22 injection, auto-injector anaphylaxis #2 ea montelukast 10 mg tablet 10 mg PO QAM #90 tabs 05/07/23 (Singulair) Results & Data (ED) Vital Signs Vital Signs - 24 hr 05/07/23 12:27 Temperature 36.4 C L Temperature Source Temporal Artery Scan Pulse Rate 116 H Respiratory Rate 18 Blood Pressure 109/64 Blood Pressure Mean 79 Pulse Oximetry 100 Oxygen Delivery Method Room Air Sepsis New/Unexplained Change in Mental Status No Sepsis Action Taken by Nursing No Action Required Home Medications Current Medication List: was personally reviewed by me Laboratory Data Attestation: I reviewed the patient's lab results. 05/08/23 06:04 05/08/23 06:04 Lab Results 05/07/23 Range/Units 12:56 WBC 2.58 L (4.8-10.8) K/ul RBC 1.86 L (4.20-5.40) M/uL Hgb 6.5 L* (12.0-16.0) g/dl Hct 18.5 L* (37.0-47.0) % MCV 99.5 (80.0-100.0) fL MCH 34.9 H (25.0-34.0) pg MCHC 35.1 (32.0-36.0) g/dL RDW Std Deviation 57.7 H (36.4-46.3) fL RDW Coeff of Oc 16.6 H (11.5-14.5) % Plt Count 73 L (130-400) K/uL MPV 10.6 (9.4-12.4) fL Immature Gran % (Auto) 0.4 % Neut % (Auto) 61.6 % Lymph % (Auto) 34.1 % Bates % (Auto) 3.1 % Eos % (Auto) 0.4 % Baso % (Auto) 0.4 % Reticulocyte % (Auto) 0.78 (0.50-2.00) % Neut # (Auto) 1.59 (1.40-6.50) K/uL Lymph # (Auto) 0.88 L (1.20-3.40) K/uL Bates # (Auto) 0.08 L (0.11-0.59) K/uL Eos # (Auto) 0.01 (0.00-0.50) K/uL Baso # (Auto) 0.01 (0.00-0.20) K/uL Reticulocyte # 0.010 L (0.020-0.100) 10^6/uL Immature Gran # (Auto) 0.01 (0.01-0.20) K/uL Tear Drop Cells 1+ PT 9.9 (9.0-12.0) Seconds INR 0.9 (0.9-1.1) D-Dimer 730 H* (0-500) ug/L FEU Sodium 139 (136-145) mmol/L Potassium 4.2 (3.5-5.1) mmol/L Chloride 105 (98-107) mmol/L Carbon Dioxide 27 (21-32) mmol/L Anion Gap 7 (3-11) BUN 12 (6-23) mg/dl Creatinine 0.73 (0.6-1.2) mg/dl Est Cr Clr Drug Dosing 90.6 ml/min Est GFR ( Amer) 111.3 ml/min Est GFR (Non-Af Amer) 96.0 ml/min BUN/Creatinine Ratio 16.4 (10-20) Glucose 117 H (70-99(Fasting)) mg/dl Calcium 9.3 (8.6-10.3) mg/dl Magnesium 2.0 (1.7-2.4) mg/dl Iron 291 H (35-150) mcg/dl TIBC TNP Unsaturated IBC < 55 L (155-355) mcg/dl Transferrin % Sat TNP Ferritin 333.9 (8-388) ng/ml Total Bilirubin 0.5 (0.2-1.0) mg/dl AST 21 (13-39) U/L ALT 12 (7-52) U/L Alkaline Phosphatase 99 (34-104) U/L Troponin I High Sens 7.6 (0-14) pg/ml Total Protein 7.1 (6.0-8.3) gm/dl Albumin 4.4 (3.4-5.0) gm/dl Globulin 2.7 (2.5-4.0) gm/dl Albumin/Globulin Ratio 1.6 (0.9-2) Lipase 29 (11-82) U/L Administered Medications Allopurinol (Allopurinol 100 Mg Tab) 100 mg PO PM CASEY Stop: 06/06/23 20:59 Last Admin: 05/07/23 20:41 Dose: 100 mg Documented By: LASHONDAF Pantoprazole Sodium (Pantoprazole 40 Mg Tab) 40 mg PO QAM CASEY Stop: 06/07/23 08:59 Last Admin: 05/08/23 09:15 Dose: 40 mg Documented By: KS Sertraline HCl (Sertraline Hcl 100 Mg Tablet) 200 mg PO QPM CASEY Stop: 06/06/23 20:59 Last Admin: 05/07/23 20:41 Dose: 200 mg Documented By: SATURNINO Discontinued Medications Sodium Chloride (Nss) 1,000 mls @ 999 mls/hr IV .Q1H1M STA Stop: 05/07/23 13:30 Last Infusion: 05/07/23 15:00 Dose: Infused Documented By: Admin: 05/07/23 13:08 Dose: 999 mls/hr Documented By: JUANY Acetaminophen (Ofirmev) 1,000 mg in 100 mls @ 400 mls/hr IV NOW STA Stop: 05/07/23 16:11 Last Infusion: 05/07/23 18:55 Dose: Infused Documented By: Admin: 05/07/23 16:20 Dose: 400 mls/hr Documented By: VITALIY Pantoprazole Sodium 40 mg/ (Syringe) 10 mls @ 5 mls/min IV NOW STA Stop: 05/07/23 22:32 Last Admin: 05/07/23 22:43 Dose: 5 mls/min Documented By: SATURNINO Imaging Data Radiologist's Impression: Chest X-Ray 05/07/23 12:30 XR chest 1V not portable HISTORY: 48 years-old Female Chest pain, nonspecific acute weakness with tachycardia COMPARISON: 08/30/2016 TECHNIQUE: PA view of the chest FINDINGS: Cardiomediastinal and hilar silhouettes are within normal limits. No pneumothorax, pleural effusion or airspace consolidation. Bones appear grossly intact. Mild mid thoracic dextroscoliosis. Cholecystectomy. IMPRESSION: No acute process. ACT 112: Negative or not required by law. The above report was generated using voice recognition software. It may contain grammatical, syntax or spelling errors. Electronically signed by: Varghese Zaragoza M.D. 05/07/2023 1:36 PM Chest X-Ray 05/07/23 12:30 XR chest 1V not portable HISTORY: 48 years-old Female Chest pain, nonspecific acute weakness with tachycardia COMPARISON: 08/30/2016 TECHNIQUE: PA view of the chest FINDINGS: Cardiomediastinal and hilar silhouettes are within normal limits. No pneumothorax, pleural effusion or airspace consolidation. Bones appear grossly intact. Mild mid thoracic dextroscoliosis. Cholecystectomy. IMPRESSION: No acute process. ACT 112: Negative or not required by law. The above report was generated using voice recognition software. It may contain grammatical, syntax or spelling errors. Electronically signed by: Varghese Zaragoza M.D. 05/07/2023 1:[address] 05/07/23 15:18 CT head/brain wo con CLINICAL HISTORY: 48 years-old Female with chronic L sided BARRIGA, thrombocytopenia. Chronic headache TECHNIQUE: Multiple axial CT images of the head were obtained without contrast. A dose lowering technique was utilized adhering to the principles of ALARA. CT DOSE: 625.8 mGy.cm COMPARISON: None. FINDINGS: No acute intracranial hemorrhage, midline shift, intracranial mass, hydrocephalus, territorial ischemia or abnormal extra-axial collection. The calvarium is intact. Nonspecific tortuosity of the optic nerves. The paranasal sinuses, mastoid air cells, and middle ear cavities are clear. IMPRESSION: No acute intracranial abnormality. ACT 112: Negative or not required by law. The above report was generated using voice recognition software. It may contain grammatical, syntax or spelling errors. Electronically signed by: Varghese Zaragoza M.D. 05/07/2023 5:37 PM Discharge Plan Visit Data Chief Complaint: Headache Stated Complaint: LOW HR HEADACHE ED Provider: Elian Lara Discharge Problem: Pancytopenia, Heart palpitations, Symptomatic anemia, Crohn disease Patient Disposition: Admitted As Inpatient Discharge Instructions Interventions: ED Discharge Assessment Last Done: 05/07/23 18:37
[2023-05-07 15:06] LABS: Albumin Level 4.4 gm/dl (3.4-5.0); Anion Gap 7 (3-11); Bilirubin,Total 0.5 mg/dl (0.2-1.0); Calcium 9.3 mg/dl (8.6-10.3); Carbon Dioxide 27 mmol/L (21-32); Chloride 105 mmol/L (98-107); Potassium 4.2 mmol/L (3.5-5.1); Sodium 139 mmol/L (136-145)
[2023-05-07 15:10] LABS: D Dimer 730 ug/L FEU (0-500)
--- NOTE | 2023-05-07 15:11 | Electrocardiogram Report ---
Test Reason : Blood Pressure : / mmHG Vent. Rate : 105 BPM Atrial Rate : 105 BPM P-R Int : 124 ms QRS Dur : 062 ms QT Int : 340 ms P-R-T Axes : 053 057 065 degrees QTc Int : 449 ms Poor data quality, interpretation may be adversely affected Sinus tachycardia Borderline ECG When compared with ECG of 07-DEC-2022 07:23, HR has increased by 32 bpm Otherwise no significant change Confirmed by Caesar Gomez ([id number]) on 05/07/2023 3:11:30 PM Referred By: Confirmed By:Caesar Gomez
[2023-05-07 15:12] LABS: Alanine Aminotransferase 12 U/L (7-52); Albumin Globulin Ratio 1.6 (0.9-2); Alkaline Phosphatase 99 U/L (34-104); Aspartate Aminotransferase 21 U/L (13-39); BUN Creatinine Ratio 16.4 (10-20); Blood Urea Nitrogen 12 mg/dl (6-23); Creatinine Clr Calc Pharmacy 90.6 ml/min; Est GFR (African American) 111.3 ml/min; Globulin 2.7 gm/dl (2.5-4.0); Glucose 117 mg/dl (70-99(Fasting)); Lipase 29 U/L (11-82); Total Protein 7.1 gm/dl (6.0-8.3)
[2023-05-07 15:17] LABS: Troponin I High Sensitivity 7.6 pg/ml (0-14)
[2023-05-07] MEDS ORDERED: SODIUM CHLORIDE 0.9% 250 ML IV PRN (15:17)
--- NOTE | 2023-05-07 15:47 | History & Physical Report ---
Date of Service May 07, 2023 Assessment & Plan (1) Pancytopenia: Plan: -Admit to med/tele -Currently hemodynamically stable, stable on RA, and in sinus tachycardia with HR in the 100-110's -Presented to the ED with multiple days of headache, tachycardia, and feeling like her heart was pounding out of her chest -Found to be pancytopenic, including a Hgb of 6.5 -Patient denies recent bleeding, hematochezia, bloody BM's, melena -No recent aspirin, NSAID, alcohol use -Total bili is WNL, will obtain PT/INR for further evaluation -Could be due to her Azathioprine and Sulfasalazine use for Chron's and arthralgia -Will obtain Iron studies with folate and B12 levels prior to starting transfusions -Will hold Azathioprine and Sulfasalazine for now -Will consult Heme/Onc for further evaluation and treatment -Blood consent, type/cross/screen obtained in the ED -Patient has been ordered 2 units PRBC's by the ED, will continue with both for now -Will trend CBC q6h once the patient has finished her second unit of PRBC's -Hold chemical DVT PPX until anemia is stable -Regular diet -AM CBC, BMP, mag, PT/INR (2) Tachycardia: Plan: -Patient has been experiencing tachycardia at home with reported HR up to the 180's per her smart watch -Noted to be in sinus tachcyardia with HR in the 110's in the ED -Has been otherwise stable -No chest pain, no acute ST segment or T-wave changes on ECG -High sen trop WNL -Likely due to her anemia and Hgb of 6.5 -D-Dimer is mildly elevated at 730, but the patient is stable on RA, without pleuritic chest pain, hemodynamically stable, and without signs of DVT. Low suspicion for PE at this time as her D-dimer could be elevated due to her hx of Chron's disease >Continue to monitor on tele and consider further workup if she becomes unstable or tachycardia persists despite improving pancytopenia (3) Headache: Plan: -Patient has been experiencing a persistent headache with some photophobia since her other symptoms began -Denies other neurologic symptoms -No focal findings on Neuro exam -Likely due to her anemia -Will follow CT of the head/brain wo con ordered in the ED -Will give 1gm IV tylenol now, monitor for improvement (4) Elevated d-dimer: Plan: -See tachycardia (5) Crohn disease: Plan: -No acute symptoms at this time -Hold Azathioprine and Sulfasalazine for now with pancytopenia Plan The patient was discussed with Dr. Espinosa at the time of the admission History of Present Illness Chief Complaint: Headache, racing heart Primary Care Provider: Landry Menon MD Yari is a 48 year old female with a PMH significant for Crohn's disease (On Azathioprine and Sulfasalazine), GERD, and LORENA who presented to the [facility] ED on 05/07/23 with complaints of headache, tachycardia, and feeling her heart pounding in her chest. She was noted to be tachycardic with HR of 116 but was otherwise stable. Labs were significant for a pancytopenia with WBC of 2.58, RBC of 1.86, hgb of 6.5, platelets of 73, lymphocyte count 0.88, D-dimer of 730. Chest xray was read as negative for acute findings. CT of the head/brain wo con was read as " Prior to admission the patient was given 1L NSS, type/crossed, and ordered 2 units of PRBC's to be transfused. At the time of the exam the patient was sitting in bed in no acute distress with her sitting bedside. She states that over the past 2 weeks she has been experiencing progressive headache, tachycardia, dizziness/lightheadedness with standing/position changes, and intermittent episodes where she can feel her heart pounding in her chest. Her symptoms were mild and tolerable at first. This am while in the shower her HR increased to the 170's-180's which is why she presented to the ED. She states that when her heart is racing she will feel some discomfort in her left arm, but denies the sensation being uncomfortable. She denies vision changes but states she has had some photophobia with her headache. She denies other focal neuro defects, paresthesias, or unilateral weakness. She has not been taking NSAID's or aspirin over this time. She denies recent tobacco or alcohol use. She confirms that she has been without fever, chest pain, SOB, cough, nausea, vomiting, abd pain, dysuria, hematuria, melena, bloody stool, hemorrhoids, or other signs of bleeding. She confirms that she has been taking the Azathioprine and Sulfasalazine as prescribed. The Sulfasalazine was p rescribed last month for arthritis by Rheumatology. Please refer to Dr. Espinosa's attestation for any changes to the treatment plan Allergies Allergy/AdvReac Type Severity Reaction Status Date / Time bee venom protein (honey bee) Allergy Severe Anaphylaxis Verified 05/07/23 16:18 amoxicillin AdvReac Intermediate N/V Verified 05/07/23 16:18 erythromycin base AdvReac Intermediate N/V Verified 05/07/23 16:18 Home Medications Medication Instructions Recorded Confirmed Type cholecalciferol (vitamin D3) 250 250 mcg PO QAM 02/20/22 05/07/23 History mcg (10,000 unit) capsule epinephrine 0.3 mg/0.3 mL 0.3 mg (0.3 mL) IM Q4H PRN 02/20/22 05/07/23 Rx injection, auto-injector anaphylaxis #2 ea ondansetron HCl 4 mg tablet 4 mg PO Q8H PRN as directed 02/20/22 05/07/23 History dicyclomine 10 mg capsule 20 mg PO BID 03/17/22 05/07/23 History fluticasone propionate 50 2 spray intranasal BID 07/11/22 05/07/23 History mcg/actuation nasal spray,suspension (Flonase Allergy Relief) pantoprazole 40 mg tablet,delayed 40 mg PO QAM 07/11/22 05/07/23 History release sertraline 100 mg tablet 200 mg PO QPM 10/16/22 05/07/23 History ascorbic acid 30 mg-collagen, 1 tab PO QAM 12/18/22 05/07/23 History hydrolyzed 833.3 mg tablet (Collagen Skin Renewal) allopurinol 100 mg tablet 100 mg PO PM 01/27/23 05/07/23 History azathioprine 50 mg tablet (Imuran) 75 mg PO PM 02/13/23 05/07/23 History montelukast 10 mg tablet 10 mg PO QAM #90 tabs 05/07/23 05/07/23 Rx (Singulair) sulfasalazine 500 mg 500 mg PO BID 05/07/23 05/07/23 History tablet,delayed release Past Med/Surg History Medical History (Updated 05/07/23 @ 16:31 by Pipe Tjierina PA-C) Arthralgia Hiatal hernia Hydronephrosis with renal and ureteral calculous obstruction Immunosuppressed status Hx of migraines R/t exertion Sleep apnea "Mild" No device History of COVID-19 x2, most recent 2021 (home test)- mild symptoms, resolved Gastroparesis IBS (irritable bowel syndrome) Dysplastic nevi s/p excision Allergic rhinitis Subclinical hypothyroidism Anxiety with depression Crohn disease Dyslipidemia GERD (gastroesophageal reflux disease) Surgical History (Updated 04/02/23 @ 15:17 by Geovany Aguiar) History of appendectomy "appendix was adhered to pelvis causing SBO - patient has appendectomy and lysis of adhesions" History of surgical removal of ganglion cyst History of tonsillectomy S/P lumbar fusion Hx of cholecystectomy H/O wisdom tooth extraction Hx of cystoscopy + stent placement 12/07/22 Hx of wisdom tooth extraction History of surgical removal of ganglion cyst Hx of appendectomy History of lumbar fusion Nausea and vomiting after administration of anesthetic agent History of esophagogastroduodenoscopy (EGD) History of bowel resection 2016 History of tonsillectomy and adenoidectomy 1999 History of cryosurgery Cryocautery of cervix Hx laparoscopic cholecystectomy 2004 History of excision of lesion x2, Lap;excision of lesions lyse adhesions, small bowel resection; suspicious for Crohn's; stricturoplasty Hx of colonoscopy History of incisional hernia repair 08/13/21 Repair recurrent incisional hernia repair twice Family History Mother Cancer Neurological disorder Anxiety Depression Father Cancer FH: prostate cancer Kidney stones Anxiety Depression Melanoma Sister Cancer Breast cancer Stroke Heart disease Thyroid disorder Anxiety Depression Grandmother (Maternal) Heart disease Mental disorder Hyperlipidemia Grandmother (Maternal) Heart disease Mental disorder Brother Anxiety Depression Social History Smoking Status: Never smoker Second Hand Exposure: No; Do You Dip or Chew Tobacco: No; Hx Alcohol Use: No Hx Substance Use: No Preferred Language: Urdu Communication Ability: Effective Book Cleaner Required: No Beliefs That Will Affect Care: None marital status: Current Living Situation: Spouse current occupational status: unemployed current occupation: homemaker How many Children do You have: 1 Other Information That Helps Us Care for You: No Feels Safe at Home: Yes Safety Concerns: Feels Safe At This Time Dental Care, Regularly: Yes Assistive Devices: None Assistive Devices Comment: reading glasses Physical Exam Physical Exam: Physical Exam: General: In no acute distress, stated age, well-nourished, good hygiene, non- toxic appearing HEENT: Normocephalic, atraumatic, no scleral icterus, pupils around round, symmetrical, and reactive to light, moist mucus membranes, trachea midline, no thyromegaly Chest/Pulm: No respiratory distress, symmetrical chest expansion, clear breath sounds throughout Cardiac: tachycardic rate, regular rhythm, no murmurs noted Abdomen: Negative for ascites and bruising, normoactive bowel sounds, soft, non-tender to palpation throughout Musculoskeletal: Symmetrical and without signs of acute trauma, upper and lower extremities with full ROM, no atrophy, spasticity, or flaccidity Extremities: Radial, dorsalis pedis, and posterior tibial pulses are intact and symmetrical, no edema noted in the BL LE's Skin: Warm, dry, no rashes , lesions, or scars noted Neuro: Alert and oriented to person, place, month, year, and president, no focal defects, CN II-XII tested and intact, no tremors noted Psych: No acute distress, calm and cooperative during the exam Results & Data Results & Data Vital Signs (Past 12 Hours) Vital Signs Temp Pulse Resp BP Pulse Ox O2 Del Method 05/07/23 12:27 36.4 C L 116 H 18 109/64 100 Room Air Laboratory Results Abnormal lab results 05/07/23 Range/Units 12:56 WBC 2.58 L (4.8-10.8) K/ul RBC 1.86 L (4.20-5.40) M/uL Hgb 6.5 L* (12.0-16.0) g/dl Hct 18.5 L* (37.0-47.0) % MCH 34.9 H (25.0-34.0) pg RDW Std Deviation 57.7 H (36.4-46.3) fL RDW Coeff of Oc 16.6 H (11.5-14.5) % Plt Count 73 L (130-400) K/uL Lymph # (Auto) 0.88 L (1.20-3.40) K/uL [place] # (Auto) 0.08 L (0.11-0.59) K/uL D-Dimer 730 H* (0-500) ug/L FEU Glucose 117 H (70-99(Fasting)) mg/dl Diagnostic Findings Chest X-Ray 05/07/23 12:30 XR chest 1V not portable HISTORY: 48 years-old Female Chest pain, nonspecific acute weakness with tachycardia COMPARISON: 08/30/2016 TECHNIQUE: PA view of the chest FINDINGS: Cardiomediastinal and hilar silhouettes are within normal limits. No pneumothorax, pleural effusion or airspace consolidation. Bones appear grossly intact. Mild mid thoracic dextroscoliosis. Cholecystectomy. IMPRESSION: No acute process. ACT 112: Negative or not required by law. The above report was generated using voice recognition software. It may contain grammatical, syntax or spelling errors. Electronically signed by: Varghese Zaragoza M.D. 05/07/2023 1:36 PM ECG Additional Comments: Sinus tachycardia Borderline ECG When compared with ECG of 07-DEC-2022 07:23, HR has increased by 32 bpm Otherwise no significant change Code Status & VTE Plan Code Status Full code VTE Prophylaxis Plan VTE Prophylaxis will be ordered: Yes Supervising Physician Co-Signing Physician Notes I personally saw and examined the patient. I verified all swanson points and agree with Pipe Tijerina PA-C with the following exceptions and/or additions: 48-year-old female on azathioprine and sulfasalazine presents to the ER with 2 weeks of headache, tachycardia, lightheadedness and palpitations. Symptoms improved after 1 unit packed red blood cells given. She denies any melena, hematemesis, hemoptysis, hematuria, vaginal bleeding, epistaxis, rash. O/E HS RRR, no murmurs, Chest CTAB, Abdo SNT, no CVA tenderness A/P Pancytopenia - presumably due combination of azathioprine and sulfasalazine - will stop these. Reticulocyte count percentage inappropriately normal supporting this diagnosis. Transfuse 2 unit packed red blood cells and repeat H&H. Transfusion threshold less than 7. Consult hematology for ongoing management. PG Care Time/CCT Total # of Minutes Spent Total Time Spent with Patient: Total time spent is greater than 50% in coordination of care (as documented) at patient's floor/unit and/or counseling patient: Coding [place] [address] INT INP/OBS CARE 3/75MIN Patient Type Established Medical Decision Making High Complexity Diagnoses Pancytopenia D61.818 Tachycardia R00.0 Headache R51.9 Elevated d-dimer R79.89 Crohn's disease with complication, unspecified gastrointestinal tract location K50.919 Digestive disease complication type: unspecified complication Gastrointestinal tract location: unspecified location (5) Crohn disease Digestive disease complication type: unspecified complication Gastrointestinal tract location: unspecified location Qualified Code(s): K50.919 - Crohn's disease, unspecified, with unspecified complications
[2023-05-07] MEDS: ACETAMINOPHEN 1,000 MG/100 ML VIAL IV STA (16:20)
[2023-05-07 16:45] LABS: Iron 291 mcg/dl (35-150); Unsaturated Iron Binding Cap < 55 mcg/dl (155-355)
[2023-05-07 16:51] LABS: Reticulocyte % 0.78 % (0.50-2.00)
[2023-05-07 16:55] LABS: INR 0.9 (0.9-1.1); Prothrombin Time 9.9 Seconds (9.0-12.0)
--- NOTE | 2023-05-07 17:02 | XRay Report ---
XR chest 1V portable HISTORY: tachycardia, anemia of unknown source COMPARISON: Chest 05/07/2023. FINDINGS: The lungs are clear. Cardiac silhouette is normal in size. No pleural effusions. No pneumot horax. IMPRESSION: No acute process. ACT 112: Negative or not required by law. Electronically signed by: Cy Hernandez M.D. 05/07/2023 5:00 PM
[2023-05-07 17:06] LABS: Ferritin 333.9 ng/ml (8-388)
[2023-05-07 17:29] LABS: Folate (Folic Acid),Ser orPlas 16.75 ng/ml (>5.38)
--- NOTE | 2023-05-07 17:38 | CT Scan Report ---
CT head/brain wo con CLINICAL HISTORY: 48 years-old Female with chronic L sided BARRIGA, thrombocytopenia. Chronic headache TECHNIQUE: Multiple axial CT images of the head were obtained without contrast. A dose lowering tech nique was utilized adhering to the principles of ALARA. CT DOSE: 625.8 mGy.cm COMPARISON: None. FINDINGS: No acute intracranial hemorrhage, midline shift, intracranial mass, hydrocephalus, territorial ischem ia or abnormal extra-axial collection. The calvarium is intact. Nonspecific tortuosity of the optic nerves. The paranasal sinuses, mastoid a ir cells, and middle ear cavities are clear. IMPRESSION: No acute intracranial abnormality. ACT 112: Negative or not required by law. The above report was generated using voice recognition software. It may contain grammatical, syntax o r spelling errors. Electronically signed by: Varghese Zaragoza M.D. 05/07/2023 5:37 PM
[2023-05-07 17:52] LABS: Appearance Urine Clear (Clear); Bacteria Urine Automated Negative (Negative); Bilirubin Urine Negative (Negative); Blood Urine Negative (Negative); Cast Urine Automated 0 /lpf (0-5); Color Urine Yellow; Epithelial Cell Urine Auto >30 /lpf (0-5); Glucose Urine UA Negative (Negative); Ketones Urine Negative (Negative); Leukocyte Esterase Urine 1+ (Negative); Nitrite Urine Negative (Negative); Protein Urine Negative (Negative); RBC Urine Automated 0-4 /hpf (0-4); Urobilinogen Urine Negative (Negative); pH Urine 6.5 (4.5-7.5)
[2023-05-07] MEDS: SERTRALINE HCL 100 MG TABLET PO SCH (20:41)
[2023-05-07] MEDS: allopurinoL 100 MG TAB PO SCH (20:41)
[2023-05-07] MEDS: PANTOprazole 40 MG in SYRINGE 0 ML IV STA (22:43)
[2023-05-08 06:59] LABS: Albumin Level 3.8 gm/dl (3.4-5.0); BUN Creatinine Ratio 21.1 (10-20); Bilirubin,Total 1.5 mg/dl (0.2-1.0); Calcium 8.6 mg/dl (8.6-10.3); Creatinine Clr Calc Pharmacy 93.1 ml/min; Est GFR (African American) 115.1 ml/min; Est GFR (Non-African American) 99.3 ml/min; Globulin 1.9 gm/dl (2.5-4.0); Total Protein 5.7 gm/dl (6.0-8.3)
[2023-05-08 07:21] LABS: Prothrombin Time 10.5 Seconds (9.0-12.0)
[2023-05-08 07:46] LABS: Hematocrit (blood only) 24.4 % (37.0-47.0); Hemoglobin 8.3 g/dl (12.0-16.0); Mean Corpuscular Hemoglobin 30.4 pg (25.0-34.0); Mean Corpuscular Volume 89.4 fL (80.0-100.0); Platelet Count 49 K/uL (130-400); RDW Coefficient of Variation 21.6 % (11.5-14.5); RDW Standard Deviation 67.4 fL (36.4-46.3); Red Blood Count 2.73 M/uL (4.20-5.40); White Blood Count 2.75 K/ul (4.8-10.8)
[2023-05-08 07:47] LABS: Basophils # (auto) 0.01 K/uL (0.00-0.20); Basophils % (auto) 0.4 %; Eosinophils # (auto) 0.06 K/uL (0.00-0.50); Eosinophils % (auto) 2.2 %; Immature Granulocytes # (auto) 0.01 K/uL (0.01-0.20); Immature Granulocytes % (auto) 0.4 %; Lymphocytes # (auto) 1.34 K/uL (1.20-3.40); Lymphocytes % (auto) 48.7 %; Monocytes # (auto) 0.14 K/uL (0.11-0.59); Monocytes % (auto) 5.1 %; Neutrophils # (auto) 1.19 K/uL (1.40-6.50); Neutrophils % (auto) 43.2 %; Ovalocytes 1+; Tear Drop Cells 1+
[2023-05-08] MEDS: PANTOprazole 40 MG TAB PO SCH (09:15)
--- NOTE | 2023-05-08 10:17 | Hospitalist Progress Note ---
Date of Service May 08, 2023 Assessment & Plan (1) Pancytopenia: Plan: 48 y/o with crohn's and inflammatory arthritis. Takes azathioprine with allopurinol 100 mg to boost the azathioprine for her Crohn's. Recently started on sulfasalazine for arthritis, however, labs 04/24/23 (prior to starting sulfasalazine) already show some pancytopenia though not as severe. High suspicion that this is medication-induced -Presented to the ED with multiple days of headache, tachycardia, and feeling like her heart was pounding out of her chest -Found to be pancytopenic, including a Hgb of 6.5 -No evidence of bleeding or hemolysis -No recent aspirin, NSAID, alcohol use -Total bili is mildly elevated, PT/INR normal, no liver disease -retic is low c/w bone marrow suppression -ferritin 333, B12 393, folate 16 - normal Transfused 2 units RBC in ED with resolution of tachycardia, expected improvement in H/H. Hct 18-->24 -holding aza, allopurinol, sulfasalazine -AM CBC with diff and CMP -Will consult Heme/Onc for further evaluation and treatment (2) Crohn disease: Plan: -No acute symptoms at this time -Hold Azathioprine and Sulfasalazine -has been on remicade in the past and Stelara but inadequate control of symptoms -follow up with [facility] العلي - will reach out to her -unlikely to be a candidate for biologic until neutropenia improves (3) Tachycardia: Plan: Related to severe anemia and improved after transfusion Low suspicion for PE, infection, cardiac issue or other causes (4) Headache: Plan: -Patient has been experiencing a persistent headache with some photophobia since her other symptoms began improved/resolved (5) Elevated d-dimer: Plan: Likely related to Crohn's, presentation not suspicious for PE/DVT Admission and Anticipated Discharge Date Admission Date: May 07, 2023 Subjective feels better with respect to palpitations and tachycardia resolved. can feel heart beat in her ear however. Crohn's currently well controlled. Not having fevers or abdominal pain. Physical Exam 2 Physical Exam: PHYSICAL EXAMINATION Last 24h vital signs reviewed, see documentation in flowsheet General: comfortable appearing, no distress, pale HEENT: Normocephalic, atraumatic, pupils round and equal, sclerae anicteric, no conjunctival injection, moist mucus membranes Lungs: Normal respiratory effort. Heart: deferred Abdomen: nondistended. Extremities: Warm, dry, well-perfused. No extremity edema. Neuro: Alert and oriented x 4, face symmetric, moves 4 extremities well Psych: Normal affect and behavior Results & Data Results & Data Vital Signs (Past 12 Hours) Vital Signs Temp Pulse Pulse Resp BP BP Pulse Ox 05/08/23 07:25 86 05/08/23 07:22 36.9 C 91 H 18 113/75 95 05/08/23 04:01 37.0 C 92 H 16 108/67 95 05/08/23 02:15 85 05/08/23 02:01 36.8 C 98 H 18 117/75 95 05/08/23 00:06 37.0 C 82 16 118/82 94 05/07/23 23:24 88 05/07/23 23:06 37.1 C 85 16 122/79 94 05/07/23 22:30 36.6 C 84 16 118/80 96 05/07/23 22:15 36.6 C 85 22 120/77 O2 Del Method 05/08/23 07:25 05/08/23 07:22 Room Air 05/08/23 04:01 Room Air 05/08/23 02:15 05/08/23 02:01 Room Air 05/08/23 00:06 05/07/23 23:24 05/07/23 23:06 05/07/23 22:30 05/07/23 22:15 Laboratory Results 05/08/23 06:04 05/08/23 06:04 PG Care Time/CCT Total # of Minutes Spent Total Time Spent with Patient: Total time spent is greater than 50% in coordination of care (as documented) at patient's floor/unit and/or counseling patient: Coding Level of Care Code 70195 SUB INP/OBS CARE 2/35MIN Diagnoses Pancytopenia D61.818 Crohn's disease with complication, unspecified gastrointestinal tract location K50.919 Digestive disease complication type: unspecified complication Gastrointestinal tract location: unspecified location Tachycardia R00.0 Headache R51.9 Elevated d-dimer R79.89 (2) Crohn disease Digestive disease complication type: unspecified complication G astrointestinal tract location: unspecified location Qualified Code(s): K50.919 - Crohn's disease, unspecified, with unspecified complications
--- NOTE | 2023-05-08 12:46 | Oncology Consultation ---
Date of Consultation May 08, 2023 Assessment & Plan (1) Pancytopenia: Based on my review of medical records and the patient history it seems that the pancytopenia is more likely related to her immunosuppressive regimen. At this point would recommend holding her immunosuppressive regimen if agreeable to GI. Basic hematological workup reviewed including vitamin B12 level which was 393, folate level 16.5. Iron indicis revealed serum ferritin of 339. At this point would recommend against invasive testing such as bone marrow biopsy. Will recommend continued follow-up of her CBC Plan Thank you for this interesting hematological consult. Hematology will continue to follow the patient and make appropriate recommendations. A total of 60 minutes was spent in counseling, coordination of care and review of prior records History of Present Illness Attending Physician: Christine Ascencio MD History of Present Illness The patient is a very pleasant 48-year-old woman, with a past history of Crohn's disease who is currently on azathioprine and sulfasalazine. She also has a history of gastroesophageal reflux disease, obstructive sleep apnea. She presented to [facility] on 05/07/2023 complaining of headache, tachycardia and palpitations. She was noted to have a heart rate of 116, however otherwise was stable. She was noted to be significantly pancytopenic with a WBC count of 2.58, hemoglobin of 6.5, platelets of 73. She received 1 unit packed red blood cells and her hemoglobin improved to 8.3 g/dL. Her platelet has declined during her admission. She started out with 112,000/mcL however her latest platelet count is 49,000. Hematology has been consulted to assist in management of this patient who is currently on azathioprine and sulfasalazine and is found to be pancytopenic. Her hemoglobin at baseline runs between 12 to 13 g/dL. In December, her hemoglobin was 11.1 g/dL. Her WBC count was 6.51. She had recently increased the dose of azathioprine and sulfasalazine for her Crohn's disease Allergies Allergy/AdvReac Type Severity Reaction Status Date / Time bee venom protein (honey bee) Allergy Severe Anaphylaxis Verified 05/07/23 16:18 amoxicillin AdvReac Intermediate N/V Verified 05/07/23 16:18 erythromycin base AdvReac Intermediate N/V Verified 05/07/23 16:18 Home Medications Medication Instructions Recorded Confirmed Type cholecalciferol (vitamin D3) 250 250 mcg PO QAM 02/20/22 05/07/23 History mcg (10,000 unit) capsule epinephrine 0.3 mg/0.3 mL 0.3 mg (0.3 mL) IM Q4H PRN 02/20/22 05/07/23 Rx injection, auto-injector anaphylaxis #2 ea ondansetron HCl 4 mg tablet 4 mg PO Q8H PRN as directed 02/20/22 05/07/23 History dicyclomine 10 mg capsule 20 mg PO BID 03/17/22 05/07/23 History fluticasone propionate 50 2 spray intranasal BID 07/11/22 05/07/23 History mcg/actuation nasal spray,suspension (Flonase Allergy Relief) pantoprazole 40 mg tablet,delayed 40 mg PO QAM 07/11/22 05/07/23 History release sertraline 100 mg tablet 200 mg PO QPM 10/16/22 05/07/23 History ascorbic acid 30 mg-collagen, 1 tab PO QAM 12/18/22 05/07/23 History hydrolyzed 833.3 mg tablet (Collagen Skin Renewal) allopurinol 100 mg tablet 100 mg PO PM 01/27/23 05/07/23 History azathioprine 50 mg tablet (Imuran) 75 mg PO PM 02/13/23 05/07/23 History montelukast 10 mg tablet 10 mg PO QAM #90 tabs 05/07/23 05/07/23 Rx (Singulair) sulfasalazine 500 mg 500 mg PO BID 05/07/23 05/07/23 History tablet,delayed release Patient History Medical History (Updated 05/08/23 @ 16:36 by Elian Lara MD) Arthralgia Hiatal hernia Hydronephrosis with renal and ureteral calculous obstruction Immunosuppressed status Hx of migraines R/t exertion Sleep apnea "Mild" No device History of COVID-19 x2, most recent 2021 (home test)- mild symptoms, resolved Gastroparesis IBS (irritable bowel syndrome) Dysplastic nevi s/p excision Allergic rhinitis Subclinical hypothyroidism Anxiety with depression Crohn disease Dyslipidemia GERD (gastroesophageal reflux disease) Surgical History (Updated 04/02/23 @ 15:17 by Geovany Aguiar) History of appendectomy "appendix was adhered to pelvis causing SBO - patient has appendectomy and lysis of adhesions" History of surgical removal of ganglion cyst History of tonsillectomy S/P lumbar fusion Hx of cholecystectomy H/O wisdom tooth extraction Hx of cystoscopy + stent placement 12/07/22 Hx of wisdom tooth extraction History of surgical removal of ganglion cyst Hx of appendectomy History of lumbar fusion Nausea and vomiting after administration of anesthetic agent History of esophagogastroduodenoscopy (EGD) History of bowel resection 2016 History of tonsillectomy and adenoidectomy 1999 History of cryosurgery Cryocautery of cervix Hx laparoscopic cholecystectomy 2004 History of excision of lesion x2, Lap;excision of lesions lyse adhesions, small bowel resection; suspicious for Crohn's; stricturoplasty Hx of colonoscopy History of incisional hernia repair 08/13/21 Repair recurrent incisional hernia repair twice Family History Mother Cancer Neurological disorder Anxiety Depression Father Cancer FH: prostate cancer Kidney stones Anxiety Depression Melanoma Sister Cancer Breast cancer Stroke Heart disease Thyroid disorder Anxiety Depression Grandmother (Maternal) Heart disease Mental disorder Hyperlipidemia Grandmother (Maternal) Heart disease Mental disorder Brother Anxiety Depression Social History Smoking Status: Never smoker Second Hand Exposure: No; Do You Dip or Chew Tobacco: No; Hx Alcohol Use: No Hx Substance Use: No Preferred Language: Nepali Communication Ability: Effective Band Saw Marker Required: No Beliefs That Will Affect Care: None marital status: Current Living Situation: Spouse current occupational status: unemployed current occupation: homemaker How many Children do You have: 1 Other Information That Helps Us Care for You: No Feels Safe at Home: Yes Safety Concerns: Feels Safe At This Time Dental Care, Regularly: Yes Assistive Devices: None Assistive Devices Comment: reading glasses Review of Systems Review of Systems: All systems reviewed & are unremarkable except as noted in HPI & below Constitutional: as per Subjective / HPI Eyes: as per Subjective / HPI Ear, Nose, Mouth, Throat: as per Subjective / HPI Respiratory: as per Subjective / HPI Cardiovascular: as per Subjective / HPI Gastrointestinal: as per Subjective / HPI Physical Exam Constitutional: WD/WN, vitals as above Eyes: PERRL, conjunctivae normal, anicteric sclerae ENMT: external ear and nose normal, oropharynx normal Neck: trachea midline, no thyromegaly Respiratory: normal respiratory effort, lungs clear to auscultation Cardiovascular: RRR, no murmur, no edema Gastrointestinal (Abdomen): normal bowel sounds, soft, nontender, no hepatosplenomegaly Musculoskeletal: no cyanosis or clubbing, extremities motor strength 5/5 Skin: no rashes, warm and dry Results & Data Vital Signs (Past 12 Hours) Vital Signs Temp Pulse Pulse Resp BP Pulse Ox O2 Del Method 05/08/23 11:18 37.2 C 91 H 18 128/82 97 Room Air 05/08/23 07:25 86 05/08/23 07:22 36.9 C 91 H 18 113/75 95 Room Air 05/08/23 04:01 37.0 C 92 H 16 108/67 95 Room Air 05/08/23 02:15 85 05/08/23 02:01 36.8 C 98 H 18 117/75 95 Room Air
[2023-05-08] MEDS: ACETAMINOPHEN 500 MG TAB PO PRN (18:01)
[2023-05-09 07:12] LABS: Hematocrit (blood only) 24.4 % (37.0-47.0); Hemoglobin 8.3 g/dl (12.0-16.0); Mean Corpuscular Hemoglobin 30.2 pg (25.0-34.0); Mean Corpuscular Volume 88.7 fL (80.0-100.0); Platelet Count 48 K/uL (130-400); RDW Standard Deviation 65.7 fL (36.4-46.3); Red Blood Count 2.75 M/uL (4.20-5.40); White Blood Count 2.23 K/ul (4.8-10.8)
[2023-05-09 07:41] LABS: Bilirubin,Total 0.6 mg/dl (0.2-1.0); Calcium 8.8 mg/dl (8.6-10.3); Potassium 3.9 mmol/L (3.5-5.1)
[2023-05-09 08:00] LABS: BUN Creatinine Ratio 24.6 (10-20); Creatinine Clr Calc Pharmacy 94.3 ml/min; Est GFR (African American) 117.6 ml/min; Est GFR (Non-African American) 101.5 ml/min
[2023-05-09 08:14] LABS: Basophils # (auto) 0.01 K/uL (0.00-0.20); Basophils % (auto) 0.4 %; Eosinophils # (auto) 0.05 K/uL (0.00-0.50); Eosinophils % (auto) 2.2 %; Immature Granulocytes # (auto) 0.01 K/uL (0.01-0.20); Immature Granulocytes % (auto) 0.4 %; Lymphocytes # (auto) 1.18 K/uL (1.20-3.40); Lymphocytes % (auto) 52.9 %; Monocytes # (auto) 0.12 K/uL (0.11-0.59); Monocytes % (auto) 5.4 %; Neutrophils # (auto) 0.86 K/uL (1.40-6.50); Neutrophils % (auto) 38.7 %
[2023-05-09 08:15] LABS: Ovalocytes 1+; Polychromasia 1+; Tear Drop Cells 1+
--- NOTE | 2023-05-09 16:19 | Hospitalist Progress Note ---
Date of Service May 09, 2023 Assessment & Plan (1) Pancytopenia: Plan: 48 y/o with crohn's and inflammatory arthritis. Takes azathioprine with allopurinol 100 mg to boost the azathioprine for her Crohn's. Recently started on sulfasalazine for arthritis, however, labs 04/24/23 (prior to starting sulfasalazine) already show some pancytopenia though not as severe. High suspicion that this is medication-induced -Presented to the ED with multiple days of headache, tachycardia, and feeling like her heart was pounding out of her chest -Found to be pancytopenic, including a Hgb of 6.5 -No evidence of bleeding or hemolysis -No recent aspirin, NSAID, alcohol use -Total bili was mildly elevated to 1.5 on 05/08 but normal 05/07 and 05/09, PT/INR normal, no liver disease -retic is low c/w bone marrow suppression -ferritin 333, B12 393, folate 16 - normal Transfused 2 units RBC in ED with resolution of tachycardia, expected improvement in H/H. Hct 18-->24 -holding aza, allopurinol, sulfasalazine -Hct and Plt stable today but ANC fell from 1190 to [address]. [address]. Bishop - will continue daily CBC until stabilizes, then would be reasonable for discharge on prophylaxis (levaquin and acyclovir) and follow up with him as outpatient, if counts not recovering after meds held would proceed with BM biopsy -AM CBC with diff and CMP (2) Crohn disease: Plan: -No acute symptoms at this time -Hold Azathioprine and Sulfasalazine -has been on remicade in the past and Stelara but inadequate control of symptoms -follow up with [facility] Qian العلي - spoke with her 05/09 and updated - she will have office schedule video visit with GI attending within about 2 weeks. Will fax records [phone] -holding IBD therapies until neutropenia resolves (3) Tachycardia: Plan: Related to severe anemia and resolved after transfusion Low suspicion for PE, infection, cardiac issue or other causes (4) Headache: Plan: -Patient has been experiencing a persistent headache with some photophobia since her other symptoms began -resolved (5) Elevated d-dimer: Plan: Likely related to Crohn's, presentation not suspicious for PE/DVT Admission and Anticipated Discharge Date Admission Date: May 07, 2023 Subjective No further tachycardia or palpitations, no further headache today. Continues to have sensation of hearing her heartbeat in her left ear No abdominal pain or change in bowel pattern No fevers or chills Physical Exam 2 Physical Exam: PHYSICAL EXAMINATION Last 24h vital signs reviewed, see documentation in flowsheet General: comfortable appearing, no distress, pale HEENT: Normocephalic, atraumatic, pupils round and equal, sclerae anicteric, no conjunctival injection, moist mucus membranes Lungs: Normal respiratory effort. CTA bilaterally Heart: Regular no murmurs rubs or gallops Abdomen: nondistended. Bowel sounds present Extremities: Warm, dry, well-perfused. No extremity edema. Neuro: Alert and oriented x 4, face symmetric, moves 4 extremities well Psych: Normal affect and behavior Results & Data Results & Data Vital Signs (Past 12 Hours) Vital Signs Temp Pulse Pulse Resp BP Pulse Ox O2 Del Method 05/09/23 15:24 37.0 C 90 18 102/63 97 Room Air 05/09/23 11:44 36.9 C 87 18 113/70 97 Room Air 05/09/23 07:39 36.6 C 87 18 102/61 94 Room Air 05/09/23 07:36 79 Laboratory Results 05/09/23 06:33 05/09/23 06:33 PG Care Time/CCT Total # of Minutes Spent Total Time Spent with Patient: I personally spent: 50 minutes today on clinical care activities including: reviewing chart notes and vital signs reviewing labs discussion with her box office manager discussion with customer consultant - processing assistant examining and counseling the patient writing orders documentation Coding Level of Care Code 90781 SUB INP/OBS CARE 3/50MIN Diagnoses Pancytopenia D61.818 Crohn's disease with complication, unspecified gastrointestinal tract location K50.90 Tachycardia R00.0 Headache R51.9 Elevated d-dimer R79.89
--- NOTE | 2023-05-09 20:10 | Hematology/Oncology Prog Note ---
Date of Service May 09, 2023 Assessment & Plan (1) Pancytopenia: Plan: Still most likely due to immunosuppressive medications. Recommend holding immunosuppressive treatment as her Crohn's disease is well-controlled. If she continues to be persistently neutropenic and is stable then can be discharged home on prophylactic levofloxacin and acyclovir. Subsequently I can follow-up with her outpatient and we can determine the need of the bone marrow biopsy this was discussed with Dr. Christine Ascencio from [facility] Plan Thank you for this interesting hematological consult. Hematology will continue to follow the patient and make appropriate recommendations Admission and Anticipated Discharge Date Admission Date: May 07, 2023 Subjective Currently doing the same, afebrile. Neutrophil count declined 2.86. Platelet count is 48,000. Still no fevers. No nausea vomiting. No ulcerations. Physical Exam Constitutional: WD/WN, vitals as above Eyes: PERRL, conjunctivae normal, anicteric sclerae ENMT: external ear and nose normal, oropharynx normal Neck: trachea midline, no thyromegaly Respiratory: normal respiratory effort, lungs clear to auscultation Cardiovascular: RRR, no murmur, no edema Gastrointestinal (Abdomen): normal bowel sounds, soft, nontender, no hepatosplenomegaly Musculoskeletal: no cyanosis or clubbing, extremities motor strength 5/5 Skin: no rashes, warm and dry Neurologic: patellar DTR's 2+ bilat, sensation intact Results & Data Vital Signs (Past 12 Hours) Vital Signs Temp Pulse Pulse Resp BP Pulse Ox O2 Del Method 05/09/23 19:49 36.8 C 93 H 18 112/66 95 Room Air 05/09/23 16:00 79 05/09/23 15:24 37.0 C 90 18 102/63 97 Room Air 05/09/23 11:44 36.9 C 87 18 113/70 97 Room Air
[2023-05-10 07:28] LABS: BUN Creatinine Ratio 22.9 (10-20); Bilirubin,Total 0.4 mg/dl (0.2-1.0); Calcium 8.6 mg/dl (8.6-10.3); Creatinine Clr Calc Pharmacy 91.2 ml/min; Est GFR (African American) 117.1 ml/min; Potassium 3.8 mmol/L (3.5-5.1)
[2023-05-10 08:55] LABS: Basophils # (auto) 0.01 K/uL (0.00-0.20); Basophils % (auto) 0.4 %; Eosinophils # (auto) 0.08 K/uL (0.00-0.50); Eosinophils % (auto) 3.4 %; Hematocrit (blood only) 25.6 % (37.0-47.0); Hemoglobin 8.4 g/dl (12.0-16.0); Immature Granulocytes # (auto) 0.01 K/uL (0.01-0.20); Immature Granulocytes % (auto) 0.4 %; Lymphocytes # (auto) 1.05 K/uL (1.20-3.40); Lymphocytes % (auto) 44.3 %; Mean Corpuscular Hemoglobin 30.1 pg (25.0-34.0); Mean Corpuscular Hgb Conc 32.8 g/dL (32.0-36.0); Mean Corpuscular Volume 91.8 fL (80.0-100.0); Monocytes # (auto) 0.13 K/uL (0.11-0.59); Monocytes % (auto) 5.5 %; Neutrophils # (auto) 1.09 K/uL (1.40-6.50); Platelet Count 45 K/uL (130-400); RDW Standard Deviation 65.5 fL (36.4-46.3); Red Blood Count 2.79 M/uL (4.20-5.40); White Blood Count 2.37 K/ul (4.8-10.8)
--- NOTE | 2023-05-10 18:03 | Discharge Summary ---
Date of Service May 10, 2023 Admission HPI Per Admitting Provider Yari is a 48 year old female with a PMH significant for Crohn's disease (On Azathioprine and Sulfasalazine), GERD, and LORENA who presented to the [facility] ED on 05/07/23 with complaints of headache, tachycardia, and feeling her heart pounding in her chest. She was noted to be tachycardic with HR of 116 but was otherwise stable. Labs were significant for a pancytopenia with WBC of 2.58, RBC of 1.86, hgb of 6.5, platelets of 73, lymphocyte count 0.88, D-dimer of 730. Chest xray was read as negative for acute findings. CT of the head/brain wo con was read as " Prior to admission the patient was given 1L NSS, type/crossed, and ordered 2 units of PRBC's to be transfused. At the time of the exam the patient was sitting in bed in no acute distress with her sitting bedside. She states that over the past 2 weeks she has been experiencing progressive headache, tachycardia, dizziness/lightheadedness with standing/position changes, and intermittent episodes where she can feel her heart pounding in her chest. Her symptoms were mild and tolerable at first. This am while in the shower her HR increased to the 170's-180's which is why she presented to the ED. She states that when her heart is racing she will feel some discomfort in her left arm, but denies the sensation being uncomfortable. She denies vision changes but states she has had some photophobia with her headache. She denies other focal neuro defects, paresthesias, or unilateral weakness. She has not been taking NSAID's or aspirin over this time. She denies recent tobacco or alcohol use. She confirms that she has been without fever, chest pain, SOB, cough, nausea, vomiting, abd pain, dysuria, hematuria, melena, bloody stool, hemorrhoids, or other signs of bleeding. She confirms that she has been taking the Azathioprine and Sulfasalazine as prescribed. The Sulfasalazine was prescribed last month for arthritis by Rheumatology. Principal Diagnosis pancytopenia, symptomatic anemia Discharge Exam PHYSICAL EXAMINATION Last 24h vital signs reviewed, see documentation in flowsheet exam unchanged 05/10 General: comfortable appearing, no distress, pale HEENT: Normocephalic, atraumatic, pupils round and equal, sclerae anicteric, no conjunctival injection, moist mucus membranes Lungs: Normal respiratory effort. CTA bilaterally Heart: Regular no murmurs rubs or gallops Abdomen: nondistended. Bowel sounds present Extremities: Warm, dry, well-perfused. No extremity edema. Neuro: Alert and oriented x 4, face symmetric, moves 4 extremities well Psych: Normal affect and behavior Discharge Data Allergies Allergy/AdvReac Type Severity Reaction Status Date / Time bee venom protein (honey bee) Allergy Severe Anaphylaxis Verified 05/07/23 16:18 amoxicillin AdvReac Intermediate N/V Verified 05/07/23 16:18 erythromycin base AdvReac Intermediate N/V Verified 05/07/23 16:18 Consultations 05/07/23 15:37 ED Decision to Admit Stat 05/07/23 15:57 Consult Hematology Routine Ordered Studies 05/07/23 15:18 CT head/brain wo con Stat Chest X-Ray 05/07/23 12:30 XR chest 1V not portable HISTORY: 48 years-old Female Chest pain, nonspecific acute weakness with tachycardia COMPARISON: 08/30/2016 TECHNIQUE: PA view of the chest FINDINGS: Cardiomediastinal and hilar silhouettes are within normal limits. No pneumothorax, pleural effusion or airspace consolidation. Bones appear grossly intact. Mild mid thoracic dextroscoliosis. Cholecystectomy. IMPRESSION: No acute process. ACT 112: Negative or not required by law. The above report was generated using voice recognition software. It may contain grammatical, syntax or spelling errors. Electronically signed by: Varghese Zaragoza M.D. 05/07/2023 1:[address] 05/07/23 15:18 CT head/brain wo con CLINICAL HISTORY: 48 years-old Female with chronic L sided BARRIGA, thrombocytopenia. Chronic headache TECHNIQUE: Multiple axial CT images of the head were obtained without contrast. A dose lowering technique was utilized adhering to the principles of ALARA. CT DOSE: 625.8 mGy.cm COMPARISON: None. FINDINGS: No acute intracranial hemorrhage, midline shift, intracranial mass, hydrocephalus, territorial ischemia or abnormal extra-axial collection. The calvarium is intact. Nonspecific tortuosity of the optic nerves. The paranasal sinuses, mastoid air cells, and middle ear cavities are clear. IMPRESSION: No acute intracranial abnormality. ACT 112: Negative or not required by law. The above report was generated using voice recognition software. It may contain grammatical, syntax or spelling errors. Electronically signed by: Varghese Zaragoza M.D. 05/07/2023 5:37 PM Chest X-Ray 05/07/23 16:26 XR chest 1V portable HISTORY: tachycardia, anemia of unknown source COMPARISON: Chest 05/07/2023. FINDINGS: The lungs are clear. Cardiac silhouette is normal in size. No pleural effusions. No pneumothorax. IMPRESSION: No acute process. ACT 112: Negative or not required by law. Electronically signed by: Cy Hernandez M.D. 05/07/2023 5:00 PM 05/10/23 06:01 05/10/23 05:57 05/10/23 05/10/23 Range/Units 06:01 05:57 WBC 2.37 L (4.8-10.8) K/ul RBC 2.79 L (4.20-5.40) M/uL Hgb 8.4 L (12.0-16.0) g/dl Hct 25.6 L (37.0-47.0) % MCV 91.8 (80.0-100.0) fL MCH 30.1 (25.0-34.0) pg MCHC 32.8 (32.0-36.0) g/dL RDW Std Deviation 65.5 H (36.4-46.3) fL RDW Coeff of Oc 20.0 H (11.5-14.5) % Plt Count 45 L (130-400) K/uL MPV 9.0 L (9.4-12.4) fL Immature Gran % (Auto) 0.4 % Neut % (Auto) 46.0 % Lymph % (Auto) 44.3 % [place] % (Auto) 5.5 % Eos % (Auto) 3.4 % Baso % (Auto) 0.4 % Neut # (Auto) 1.09 L (1.40-6.50) K/uL Lymph # (Auto) 1.05 L (1.20-3.40) K/uL Zapata # (Auto) 0.13 (0.11-0.59) K/uL Eos # (Auto) 0.08 (0.00-0.50) K/uL Baso # (Auto) 0.01 (0.00-0.20) K/uL Immature Gran # (Auto) 0.01 (0.01-0.20) K/uL Sodium 141 (136-145) mmol/L Potassium 3.8 (3.5-5.1) mmol/L Chloride 106 (98-107) mmol/L Carbon Dioxide 29 (21-32) mmol/L Anion Gap 6 (3-11) BUN 16 (6-23) mg/dl Creatinine 0.70 (0.6-1.2) mg/dl Est Cr Clr Drug Dosing 91.2 ml/min Est GFR ( Amer) 117.1 ml/min Est GFR (Non-Af Amer) 101.0 ml/min BUN/Creatinine Ratio 22.9 H (10-20) Glucose 105 H (70-99(Fasting)) mg/dl Calcium 8.6 (8.6-10.3) mg/dl Total Bilirubin 0.4 (0.2-1.0) mg/dl AST 16 (13-39) U/L ALT 11 (7-52) U/L Alkaline Phosphatase 85 (34-104) U/L Total Protein 6.0 (6.0-8.3) gm/dl Albumin 4.0 (3.4-5.0) gm/dl Globulin 2.0 L (2.5-4.0) gm/dl Albumin/Globulin Ratio 2.0 (0.9-2) Hospital Course (1) Pancytopenia: 48 y/o with crohn's and inflammatory arthritis. Takes azathioprine with allopurinol 100 mg to boost the azathioprine for her Crohn's. Recently started on sulfasalazine for arthritis, however, labs 04/24/23 (prior to starting sulfasalazine) already show some pancytopenia though not as severe. High suspicion that this is medication-induced -Presented to the ED with multiple days of headache, tachycardia, and feeling like her heart was pounding out of her chest -Found to be pancytopenic, including a Hgb of 6.5 -No evidence of bleeding or hemolysis -No recent aspirin, NSAID, alcohol use -Total bili was mildly elevated to 1.5 on 05/08 but normal 05/07 and 05/09, PT/INR normal, no liver disease -retic is low c/w bone marrow suppression -ferritin 333, B12 393, folate 16 - normal Transfused 2 units RBC in ED with resolution of tachycardia, expected improvement in H/H. Hct 18-->24 -consulted heme-onc Dr. Bishop -stopped azathioprine, allopurinol, sulfasalazine -monitored in hospital, counts stable/improved today ANC 860 --> 1090 -discharge on prophylaxis (levaquin and acyclovir) and follow up with Dr. Bishop as outpatient, if counts not recovering after meds held would proceed with BM biopsy -discussed strict return precautions if infectious signs symptoms like fever etc (2) Crohn disease: -No acute symptoms at this time -Hold Azathioprine and Sulfasalazine -has been on remicade in the past and Stelara but inadequate control of symptoms -follow up with [facility] Qian العلي - spoke with her 05/09 and updated - she will have office schedule video visit with GI attending within about 2 weeks. Will fax records [phone] -holding IBD therapies until neutropenia resolves (3) Tachycardia: Related to severe anemia and resolved after transfusion Low suspicion for PE, infection, cardiac issue or other causes (4) Headache: -Patient has been experiencing a persistent headache with some photophobia since her other symptoms began -resolved (5) Elevated d-dimer: Likely related to Crohn's, presentation not suspicious for PE/DVT Total Time Total Time Spent Total Time Spent (In Minutes): 25 minutes Discharge Plan Discharge Items Patient Disposition: Home - Self-Care Reason For Visit: PANCYTOPENIA, TACHYCARDIA, HEADACHE Discharge Diagnosis: pancytopenia, symptomatic anemia Activity: Resume your previous activity Non-emergency contact: Primary Care Provider and Oncologist Call non-emergency contact if: you have any medication questions, your symptoms worsen and you have a fever Follow-up/Referrals: Landry Menon MD [Primary Care Provider] - 05/16/23 11:30 am Riccardo Bishop MD [Physician] - (call to schedule appointment friday) Diet: Regular Addtl Attending Provider Instructions: You were diagnosed with symptomatic anemia which improved with blood transfusion Your white blood count and platelet counts are also low -this was highly likely caused by your medications -STOP taking azathioprine, allopurinol, sulfasalazine -acetaminophen is safe to take at this time, for pain or fever Call Friday and make an appointment with Dr. Bishop the mold capper helper/oncologist within 1-2 weeks -he will be able to check your blood counts -if the counts are not recovering with stopping the medications he will arrange further testing Follow up with [facility] for your Crohn's - the office should be contacting you to schedule video visit in about two weeks, call them if you don't hear from them early this week If you develop any signs of infection including fever, seek immediate medical attention I prescribed levofloxacin (antibiotic) and acyclovir (antiviral) for prophylaxis while your white blood count is low. Dr. Bishop can tell you when it is okay to stop these medications based on your blood count Pending Studies at Discharge: No Stand-Alone Forms: My [facility] [employer], Smoking Cessation Medications and DC Order Prescriptions: New levofloxacin 500 mg tablet 500 mg PO DAILY 14 Days Qty: 14 0RF acyclovir 400 mg tablet 400 mg PO TID Qty: 42 0RF Continued montelukast [Singulair] 10 mg tablet 10 mg PO QAM Qty: 90 3RF sertraline 100 mg tablet 200 mg PO QPM cholecalciferol (vitamin D3) 250 mcg (10,000 unit) capsule 250 mcg PO QAM epinephrine 0.3 mg/0.3 mL auto-injector 0.3 mg IM Q4H PRN (Reason: anaphylaxis) Qty: 2 0RF ondansetron HCl 4 mg tablet 4 mg PO Q8H PRN (Reason: as directed) dicyclomine 10 mg capsule 20 mg PO BID pantoprazole 40 mg tablet,delayed release (DR/EC) 40 mg PO QAM fluticasone propionate [Flonase Allergy Relief] 50 mcg/actuation spray,suspension 2 spray intranasal BID Rx Instructions: administer into each nostril Collagen Skin Renewal 30-833.3 mg Tablet 1 tab PO QAM Discontinued allopurinol 100 mg Tablet 100 mg PO PM azathioprine [Imuran] 50 mg tablet 75 mg PO PM sulfasalazine 500 mg tablet,delayed release (DR/EC) 500 mg PO BID Discharge Orders: Discharge Order (Routine); Ordered 05/10/23 Ordered By: Christine Ascencio Admission Data Admit Date/Time: 05/07/23 15:56 Attending Provider: Christine Ascencio Admit Provider: Rodney Espinosa Primary Care Provider: Landry Menon Other Providers: Rodney Espinosa; Riccardo Bishop Other Interventions: Discharge Summary Assessment (RN) Last Done: 05/10/23 12:01 Coding Level of Care Code 05086 IN/OBS DISCH 30 MIN/LESS Diagnoses Pancytopenia D61.818 Crohn's disease with complication, unspecified gastrointestinal tract location K50.90 Tachycardia R00.0 Headache R51.9 Elevated d-dimer R79.89
== END 2023-05-10 12:55 | disposition home or self-care (01) | DRG 809 ==
LOC: ED 12:00 → EDINP 15:56 → SUATTDRO 15:56 → 2N 18:37